=== PATIENT | female | born 1940 | race Caucasian/White ===

== ENCOUNTER 2019-01-04 18:31 | Inpatient (IN) | payer MEDICARE, MEDICAID, SELFPAY ==
[2019-01-04 18:32] VITALS: BP 122/84; PULSE 88; RESP 20; TEMP 37.7; O2SAT 100; BMI 27.3
[2019-01-04 18:47] VITALS: BP 122/84; PULSE 87; RESP 24; O2SAT 96
--- NOTE | 2019-01-04 18:49 | CT_ITS ---
STUDY: CT BRAIN WITHOUT CONTRAST REASON FOR EXAM: Female, 78 years old. Fall. Mental status change. RADIATION DOSAGE (If Supplied By Facility): CTDIvol = ( 44.99 ) mGy, DLP = ( 1057.92 ) mGycm TECHNIQUE: Transaxial CT imaging of the brain was performed without administration of intravenous contrast material. Individualized dose optimization techniques were used for this CT. COMPARISON: No relevant priors. FINDINGS: Normal soft tissue structures. Normal calvarium. Normal size ventricles and extra-axial spaces for the patient's age. There are areas of decreased attenuation within the white matter tracts of the supratentorial brain, consistent with microvascular disease changes. Normal basal ganglia and thalami. Normal brainstem. Normal cerebellum. There is no intracranial hemorrhage. There are no findings of an acute ischemic infarction. Normal visualized paranasal sinuses. CT/Brain/Head without Contrast IMPRESSION: Chronic involutional changes without evidence of acute intracranial or calvarial abnormality. Electronically Signed: Nikko Valdez DO at 20:16 EDT Tel [phone], Service support ,
--- NOTE | 2019-01-04 18:49 | EKG12_ITS ---
Test Reason : Blood Pressure : / mmHG Vent. Rate : 093 BPM Atrial Rate : 093 BPM P-R Int : 154 ms QRS Dur : 066 ms QT Int : 370 ms P-R-T Axes : 051 000 058 degrees QTc Int : 460 ms Normal sinus rhythm Normal ECG Confirmed by MATT ZAVALA ([id number]), video editor KEATON SOTO ([id number]) on 01/09/2019 12:31:41 PM Referred By: MARLENA Confirmed By:MATT ZAVALA
[2019-01-04 18:56] LABS: Bedside Glucose 144 mg/dL (70-110)
--- NOTE | 2019-01-04 18:56 | ED.DCSUM_ITS ---
- ER Visit Summary Date of Service: 01/04/19 Chief Complaint: Fall with reported mental status change History of Present Illness: The patient is a 78 F history of dementia. Currently there is no family with the patient she was brought in by squad. She is a very limited informant. Her squad she reportedly fell today at home and has mental status change. Reportedly fell in her right hip. Patient's not able to really give me any accurate history. We will try to contact the family or hopefully they will come into the ER. Physical Examination: Older female no acute distress. Sitting upright in bed. Vital signs are stable and afebrile. HEENT exam atraumatic. Pupils round re active light. No signs of trauma to her face or scalp. No lacerations or blood. C-spine nontender. Trachea midline. Lungs clear to auscultation bilaterally. Heart regular rate and rhythm no murmur. Chest nontender. Abdomen soft nontender. Extremities moves all 4. She has mild tenderness to her right hip and with range of motion but there is no deformity. There is no shortening or rotation. Left lower extremity both of her shoulders are unremarkable. Neurologically her eyes are open she is awake. She really does not answer a lot of questions. She does follow some limited commands. Test Results: Labs and imaging are not significantly remarkable. Chest x-ray portable one view shows chronic changes no acute process. Read both by myself and radiologist. Pelvis left hip x-ray shows no acute fracture. 3 views read again both by myself and radiologist. CT of the brain shows chronic changes but no acute process. Read by the radiologist and reviewed by me. EKG sinus rhythm rate of 93 with no acute abnormality. No ischemia. CBC White count of 9. Hemoglobin 13. Chemistries normal glucose 138. BUN 25 creatinine 1.1. UA normal. No signs of infection troponin normal. Emergency Department Course and Treatment: Older female reported fall with reported mental status change. Labs and imaging will be obtained. Repeat exam at 8:39 PM patient doing well. Her brother and [id number] are at bedside. She lives with them. She used to live out of the state in the last year she is moved in with them. They are having difficulty caring for her due to her dementia and her amqfjl-jl-[id number] had a stroke so it makes it harder for her to care for the patient. They are requesting admission for retirement placement. I went over all test results with him. Treatment Plan: Hospitalist on page for admission for failure to thrive and retirement placement Disposition: Admission for placement. Impression: Acute fall Reported mental status change with a history of dementia Right hip contusion Failure to thrive family requesting retirement placement History of dementia This note was generated with Microstim dictation software. It may contain incorrect words, spelling, and punctuation that were not noted in review of the chart prior to signing
[2019-01-04 19:02] LABS: Absolute Neutrophil Count 8.2 X10^3/uL (2.0-7.7); Basophil# 0.05 X10^3/uL; Basophil% 0.5 % (0-1); Eosinophil# 0.07 X10^3/uL; Eosinophils% 0.7 % (0-5); Hematocrit 40.4 % (37-47); Hemoglobin 13.2 g/dL (12.0-15.0); Lymphocyte % 7.2 % (19-41); Mean Corp Hgb Conc 32.7 g/dL (32-36); Mean Corpuscular Hgb 29.5 pg (27.0-32.0); Mean Corpuscular Volume 90.2 fL (81-99); Mean Platelet Vol. 10.2 fl (6.2-12.0); Monocyte# 0.75 X10^3/uL; Monocyte% 7.7 % (0-10); NRBC Flagged by Analyzer 0 % (0-5); Neutrophil # 8.16 X10^3/uL (2.7-7.7); Neutrophil % 83.6 % (47-70); Platelet Count 193 K/mm3 (150-450); RBC Distribution Width CV 13.7 % (11.6-14.6); RBC Distribution Width SD 43.9 fl (35.1-43.9); Red Blood Count 4.48 M/mm3 (4.2-5.4); White Blood Count 9.8 K/mm3 (4.4-11.0)
[2019-01-04 19:23] LABS: Anion Gap 3 (5-15); BUN 25 mg/dL (7-18); BUN/Creat Ratio 21.2 RATIO (10-20); Calcium,Total 9.3 mg/dL (8.5-10.1); Chloride 105 mmol/L (98-107); Creatinine, Serum 1.18 mg/dL (0.55-1.02); EST Glomerular Filtration Rate 47 mL/min (>60); Est Glom Filt Rate - Afr Amer 57 mL/min (>60); Estimated Creatinine Clearance 37.41 ml/min; Glucose 138 mg/dL (74-106); Sodium Level 138 mmol/L (136-145)
[2019-01-04 19:55] LABS: Bacteria 0 SEEN /hpf (None Seen); Mucous, Urine 0 SEEN /hpf (<or=2+)
[2019-01-04 20:03] LABS: Color, Urine Straw (Yellow); Glucose, Dipstick Normal (Normal); Ketone-Dipstick Negative (Negative); Leukocyte Esterase-Dipstick Negative /ul (Negative); Nitrite-Dipstick Negative (Negative); Occult Blood-Urine 25 /ul (Negative); Protein-Dipstick Negative (Negative); Urine Bilirubin Dipstick Negative (Negative); Urine Clarity Clear (Clear); Urine Urobilinogen Normal (Normal); Urine pH 6.5 (5.0 - 8.0)
--- NOTE | 2019-01-04 20:05 | RAD_ITS ---
STUDY: X-RAY - PELVIS AND RIGHT HIP REASON FOR EXAM: Female, 78 years old. Fall. Right hip pain. TECHNIQUE: 3 views of the pelvis and hip. COMPARISON: None. FINDINGS: There is a non-specific bowel gas pattern. Normal visualized soft tissue structures. There is posterior fusion on the thoracolumbar spine. There is narrowing with cortical sclerosis and osteophyte formation of the sacroiliac joint consistent with degenerative osteoarthritic changes. Normal iliac wings and visualized sacrum. Normal bilateral superior and inferior pubic rami. There is narrowing with sclerosis of the pubic symphysis. Normal bilateral ischial tuberosities. Normal visualized femoral head. Normal acetabulum. Normal hip joint. RAD/HIP, UNI W/ Pelvis 2-3 Views IMPRESSION: No acute fracture or dislocation. Electronically Signed: Nikko Valdez DO at 20:18 EDT Tel [phone], Service support ,
--- NOTE | 2019-01-04 20:06 | RAD_ITS ---
STUDY: X-RAY CHEST REASON FOR EXAM: Female, 78 years old. Fall. Pain. TECHNIQUE: Single AP portable view of the chest. COMPARISON: None. FINDINGS: Lungs are mildly hypoexpanded with no acute infiltrate or mass. The lungs are clear and expanded. There is no demonstrated pleural abnormality. Normal size heart. Normal mediastinum and holly. Normal visualized pulmonary arteries. Normal visualized aortic arch and descending thoracic aorta. The thoracic spine is obscured by the mediastinum. 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 There is no demonstrated abnormality of the visualized soft tissue structures of the upper abdomen. RAD/Chest 1 View (Portable) IMPRESSION: Degenerative changes, as described above. No demonstrated acute cardiopulmonary process. Electronically Signed: Nikko Valdez DO at 20:17 EDT Tel [phone], Service support ,
[2019-01-04 20:14] LABS: Squamous Epithelial Cells - UA 0-5 SEEN /hpf (5-10)
[2019-01-04 20:15] LABS: Red Blood Cells-Urine 0-5 SEEN /hpf (0-5); White Blood Cells 0-5 SEEN /hpf (0-5)
[2019-01-04 20:16] LABS: Transitional Epithelial - Ur 0-5 SEEN /hpf (0-5)
--- NOTE | 2019-01-04 20:51 | PCM.HP.STD ---
Problem List (1) Adult failure to thrive Status: Acute (2) Acute bronchitis Status: Acute (3) SIRS (systemic inflammatory response syndrome) Status: Acute (4) Dementia Status: Chronic History of Present Illness Date of Admission: 01/04/19 Chief Complaint: fall The patient is a 78 year old F with a significant history of dementia who was brought to the emergency department because of a fall. Patient used to live at [place] and she moved to the [facility] about a year ago to live with her brother and [id number]-[id number]. Patient is unable to take care of herself. Her rdfdrv-kv-sao also has stroke so it is difficult for patient to be catered for. Patient's brother thinks that patient will need placement in a intermediate. History was taken from emergency department doctor because patient has dementia and unable to provide history. Emergency department doctor obtained information from the squad and from patient's brother. At the time of evaluation patient's brother was not available and he was unreachable by phone. Patient was noted to have a congested cough during physical examination. Past Medical History Past Medical History (Chronic Problems): Chronic Problems (Last Reviewed 01/05/19 @ 05:09 by Robert De Guzman MD) Dementia (Chronic) Medical History: Medical History (Last Reviewed 01/05/19 @ 05:09 by Robert De Guzman MD) Dementia F03.90 Home Medications: Ambulatory Orders Medication Instructions Recorded Acetaminophen [Tylenol Extra 1,000 mg PO DAILY PRN PRN 01/04/19 Strength] Alendronate Sodium 35 mg PO FR 01/04/19 Atorvastatin Calcium [Lipitor] 40 mg PO DAILY 01/04/19 Levothyroxine [Synthroid] 88 mcg PO DAILY 01/04/19 Metoprolol Tartrate 25 mg PO BID 01/04/19 Surgical History: - - Unable to obtain history from patient because of dementia. Her family is unreachable by phone. Lives: With Family Tobacco Use: - - Unable to obtain history from patient because of dementia. Her family is unreachable by phone. - *Family History Maternal History Items: - - Unable to obtain history from patient because of dementia. Her family is unreachable by phone. Paternal History Items: - - Unable to obtain history from patient because of dementia. Her family is unreachable by phone. Review of Systems Unable to obtain accurate/complete ROS d/t: Dementia. Her family is unreachable by phone. VTE Information - Inpt Only VTE Present on Admission: No VTE Mechan Device Prophylaxis: None VTE Pharm Prophylaxis ordered?: Yes Patient Problems: Active and Suspected Problems (Last Reviewed 01/05/19 @ 05:09 by Robert De Guzman MD) Adult failure to thrive (Acute) Acute bronchitis (Acute) SIRS (systemic inflammatory response syndrome) (Acute) - Physical Exam General: Alert, Confused HEENT: Atraumatic, EOMI, Normocephalic Neck: Supple, No JVD, No Nuchal Rigidity, Trachea Midline Lungs: Tachypneic, Wheezes, - - Noted to have a congested cough Cardiovascular: Regular Rhythm, No murmurs, Tachycardic Abdomen: Bowel Sounds Present, Soft, Non Tender Extremities: No edema, Capillary Refill Less than 3 Seconds Skin: No rashes, - - Bruise on posterior left shoulder Musculoskeletal: No Tenderness to Palpation of Joints or Extremities Neurological: Cranial nerves II-XII grossly intact Psych/Mental Status: Normal Affect, Appropriate Vital Signs Temp Pulse Resp BP Pulse Ox 99.8 F H 87 24 H 122/84 H 96 01/04/19 18:32 01/04/19 18:47 01/04/19 18:47 01/04/19 18:47 01/04/19 18:47 Oxygen Flow Rate (L/min) 2 Oxygen Delivery Method Nasal Cannula Weight: 61.3 kg Body Mass Index (BMI) 27.3 Finger Stick Blood Glucose 144 Laboratory Tests Past 24 Hrs 01/04/19 01/04/19 01/04/19 18:50 18:50 19:50 WBC 9.8 RBC 4.48 Hgb 13.2 Hct 40.4 MCV 90.2 MCH 29.5 MCHC 32.7 RDW Std Deviation 43.9 RDW Coeff of Rita 13.7 Plt Count 193 MPV 10.2 Immature Gran % (Auto) 0.300 Neut % (Auto) 83.6 H Lymph % (Auto) 7.2 L [place] % (Auto) 7.7 Eos % (Auto) 0.7 Baso % (Auto) 0.5 Absolute Neuts (auto) 8.2 H Absolute Lymphs (auto) 0.70 L Nucleated RBC % 0 Sodium 138 Potassium 4.0 Chloride 105 Carbon Dioxide 30.0 Anion Gap 3 L BUN 25 H Creatinine 1.18 H Estim Creat Clear Calc 37.41 Est GFR (MDRD) Af Amer 57 L Est GFR (MDRD) Non-Af 47 L BUN/Creatinine Ratio 21.2 H Glucose 138 H Calcium 9.3 Troponin I < 0.015 Urine Color Straw Urine Clarity Clear Urine pH 6.5 Ur Specific [place] 1.010 Urine Protein Negative Urine Glucose (UA) Normal Urine Ketones Negative Urine Occult Blood 25 H Urine Nitrite Negative Urine Bilirubin Negative Urine Urobilinogen Normal Ur Leukocyte Esterase Negative Urine RBC 0-5 SEEN Urine WBC 0-5 SEEN Ur Squamous Epith Cells 0-5 SEEN Ur Transition Epith Cell 0-5 SEEN Urine Bacteria 0 SEEN Urine Mucus 0 SEEN POC Glucose 01/04/19 18:36 POC Glucose 144 H Assessment/Plan All Active Problems (Last Reviewed 01/05/19 @ 05:09 by Robert De Guzman MD) Adult failure to thrive (Acute) Acute bronchitis (Acute) SIRS (systemic inflammatory response syndrome) (Acute) The patient is a 78 year old F with a significant history of dementia who was brought to the emergency department because of a fall; unable to take care of herself and with limited assistance at home consistent with adult failure to thrive Adult failure to thrive Likely secondary to severe dementia PT and OT to work patient and make recommendation. Likely patient will need placement to intermediate. Fall Likely secondary to dementia. PT to work with patient for strengthening and balance training. Possibly intermediate placement as above. PRN Tylenol for pain Case management consult Bronchitis Unable to differentiate whether acute or chronic Scheduled DuoNeb. SIRS Patient noted to have a fever of 100.3; tachycardia and tachypnea No obvious source of infection as urinalysis and checks x-ray are unremarkable. If fever persist consider repeating chest x-ray. Dysphagia Noted to failed Nursing bedside swallow eval Speech therapy consult N.p.o. DVT Lovenox subcutaneous. Code Visit OBSV E&M: 73636 Initial observation care L3
[2019-01-04 21:13] VITALS: BP 116/53; PULSE 93; RESP 26; O2SAT 98
[2019-01-04 22:06] VITALS: BMI 27.1
[2019-01-04 22:15] VITALS: BP 132/89; PULSE 106; RESP 24; TEMP 37.9; O2SAT 97; BMI 27.0
--- NOTE | 2019-01-04 22:33 | NURSING ---
Attempted to call Lenard Garza who is listed as next of kin and left a message for him to call [phone] so we could get some information on this pt. No family accompanied the pt and she is unable to give us information.
[2019-01-05] VITALS (15 sets, daily range): BP systolic 88–129; BP diastolic 43–84; PULSE 77–103; RESP 18–26; TEMP 36.8–37.6; O2SAT 2–97
[2019-01-05] MEDS: Ipratropium/Albuterol Sulfate 3 ML AMPUL.NEB INHALATION ×3 (06:54→18:55)
--- NOTE | 2019-01-05 07:17 | PCM.PN.HOSP ---
Patient Problems: Active and Suspected Problems (Last Reviewed 01/05/19 @ 05:09 by Robert De Guzman MD) Adult failure to thrive (Acute) Acute bronchitis (Acute) SIRS (systemic inflammatory response syndrome) (Acute) Subjective: Patient was seen and examined. Admitted last night after a fall and with mental status change. No acute events overnight. She denied any new complaints. She appears more alert this morning; still confused. Attempted calling her next of kin, brother, no answer, left message. Started on pureed diet by speech therapy. Vitals/I&O's: Vital Signs Temp Pulse Resp BP Pulse Ox 98.8 F 100 24 H 106/65 95 01/05/19 06:59 01/05/19 06:59 01/05/19 06:59 01/05/19 06:59 01/05/19 06:59 Oxygen Flow Rate (L/min) 2.5 Oxygen Delivery Method Nasal Cannula Weight: 59 kg Body Mass Index (BMI) 27.1 Finger Stick Blood Glucose 144 Intake and Output for Last 24 Hours 01/03/19 01/04/19 01/05/19 23:59 23:59 23:59 Intake Total 500 / 500 0 / 0 Balance 500 / 500 0 / 0 General: Alert, Cooperative, No apparent distress, Confused HEENT: Atraumatic, PERRLA, EOMI, Normocephalic Oral: Moist Mucosa Neck: Supple Lungs: Clear to auscultation, Normal air movement Cardiovascular: Regular rate, Regular Rhythm, Normal S1, Normal S2, No murmurs Abdomen: Bowel Sounds Present, Soft, Non Tender, Non-Distended, No Hepato-splenomegaly Extremities: No edema Skin: No rashes, No breakdown Musculoskeletal: No Tenderness to Palpation of Joints or Extremities Lymphatic: No Cervical, Supraclavicular, or Inguinal Adenopathy Neurological: Cranial nerves II-XII grossly intact, Neuro grossly intact Psych/Mental Status: Normal Affect, Appropriate Laboratory Results 01/04/19 18:36: POC Glucose 144 H 01/04/19 18:50: WBC 9.8, RBC 4.48, Hgb 13.2, Hct 40.4, MCV 90.2, MCH 29.5, MCHC 32.7, RDW Std Deviation 43.9, RDW Coeff of Rita 13.7, Plt Count 193, MPV 10.2, Immature Gran % (Auto) 0.300, Neut % (Auto) 83.6 H, Lymph % (Auto) 7.2 L, [place] % (Auto) 7.7, Eos % (Auto) 0.7, Baso % (Auto) 0.5, Absolute Neuts (auto) 8.2 H, Absolute Lymphs (auto) 0.70 L, Nucleated RBC % 0 01/04/19 18:50: Sodium 138, Potassium 4.0, Chloride 105, Carbon Dioxide 30.0, Anion Gap 3 L, BUN 25 H, Creatinine 1.18 H, Estim Creat Clear Calc 37.41, Est GFR (MDRD) Af Amer 57 L, Est GFR (MDRD) Non-Af 47 L, BUN/Creatinine Ratio 21.2 H, Glucose 138 H, Calcium 9.3, Troponin I < 0.015 01/04/19 19:50: Urine Color Straw, Urine Clarity Clear, Urine pH 6.5, Ur Specific [place] 1.010, Urine Protein Negative, Urine Glucose (UA) Normal, Urine Ketones Negative, Urine Occult Blood 25 H, Urine Nitrite Negative, Urine Bilirubin Negative, Urine Urobilinogen Normal, Ur Leukocyte Esterase Negative, Urine RBC 0-5 SEEN, Urine WBC 0-5 SEEN, Ur Squamous Epith Cells 0-5 SEEN, Ur Transition Epith Cell 0-5 SEEN, Urine Bacteria 0 SEEN, Urine Mucus 0 SEEN Current Medications Acetaminophen (Tylenol) 650 mg PO Q6H PRN PRN PRN Reason: Mild Pain (1-3)/Temp > 100.7 F Albuterol/Ipratropium (Duoneb) 3 ml INHALATION Q6H.RT [facility] Last Admin: 01/05/19 06:54 Dose: 3 ml Documented by: Atorvastatin Calcium (Lipitor) 40 mg PO DAILY@2200 [facility] Dextrose (D50w Syringe) 0 gm IV X1 PRN; Protocol PRN Reason: Hypoglycemia Enoxaparin Sodium (Lovenox) 40 mg SC DAILY@1000 [facility] Glucagon () 1 mg IM .X1 PRN PRN Reason: Hypoglycemia Levothyroxine Sodium (Synthroid) 88 mcg PO DAILY@0600 [facility] Last Admin: 01/05/19 01:33 Dose: Not Given Documented by: Metoprolol Tartrate (Lopressor (Beta Hugh)) 25 mg PO BID [facility] Last Admin: 01/05/19 00:27 Dose: Not Given Documented by: Nystatin (Mycostatin Powder) 1 applic TOPICAL BID MARGARITA; Protocol Senna/Docusate Sodium (Senokot-S, Maria De Jesus-Colace) 2 tablet PO BID PRN PRN PRN Reason: Constipation Sodium Chloride () 5 - 15 ml IV UD PRN PRN Reason: SALINE FLUSH Medical Necessity - Tobacco Use Smoking Status: Former smoker Tobacco Use: - - Unable to obtain history from patient because of dementia. Her family is unreachable by phone. Assessment/Plan All Active Problems (Last Reviewed 01/05/19 @ 05:09 by Robert De Guzman MD) Adult failure to thrive (Acute) Acute bronchitis (Acute) SIRS (systemic inflammatory response syndrome) (Acute) 78-year-old female with past medical history of dementia who comes in after a fall and reportedly said to be confused. Patient lives with his brother and his and they are unable to take care of him and looking for long-term placement. 1. Fall, unclear of circumstances, suspect underlying gait disorder, probably secondary to progressive dementia We will check vitamin D levels PT and OT to evaluate 2. Dehydration, creatinine is 1.18, no previous creatinine to compare with, will continue on IV fluids, repeat blood work in a.m. 3. Dementia, unknown underlying etiology, limited history, patient is dependent for all ADLs 4. Dysphagia, unclear etiology for now, likely progression of patient's underlying dementia, seen by speech therapy, on pur?ed diet 5. Hypothyroidism, on levothyroxine 6. DVT prophylaxis - Lovenox SC Code Visit Inpatient E&M: 89256 Subs Hosp L2
[2019-01-05] MEDS: 0.9% Normal Saline 1,000 ML 100 ML IV ×2 (09:52→20:25)
[2019-01-05 10:40] LABS: Thyroid Stim Hormone (TSH) 0.31 uIU/mL (0.358-3.74)
[2019-01-05] MEDS: Enoxaparin 40 MG/0.4 ML Syringe SC (12:13)
[2019-01-05] MEDS: Metoprolol Tartrate 25 MG Tablet PO ×2 (12:13→23:16)
--- NOTE | 2019-01-05 12:31 | NURSING ---
SN Lauren contacts pharmacy regarding nystatin cream not on unit for administration-pharmacy will look into it
[2019-01-05] MEDS: Nystatin Powder 15gm Bottle 1 APPLIC TOPICAL ×2 (14:02→23:15)
--- NOTE | 2019-01-05 14:10 | CASEMGMT ---
Social Work Note JAVI spoke with physician regarding pt. Pt will need SNF placement. Per H+P, pt has dementia, unable to answers questions. JAVI placed a call to pt's brother Lenard. Lenard confirms that pt will need SNF at discharge. JAVI reviewed list of area SNF with Lenard. Lenard states he has visited [facility] and would like pt to go to [facility] at discharge. JAVI explained Medicare guidelines for Lenard. JAVI asked pt about HCPOA documents. Lenard states he provided S with HCPOA documents as he is trying to get pt on Medicaid and he will go to [facility] and get copy of HCPOA and bring them to [facility]. JAVI placed a call to [facility] and spoke with Tram and provided referral. JAVI received message from Tram stating she is able to accept pt Wednesday. JAVI placed a call to Lenard and updated him that pt is accepted to [facility] Wednesday. Lenard states understanding. Plan: [facility] Wednesday Maureen Caldwell FERMENTATION ENGINEER, TELE RN
--- NOTE | 2019-01-05 14:24 | CHAPLAIN ---
Type of Pastoral Visit _x__ Initial Visit ___ Follow-up Visit ___ On-call Visit ___ General Patient Visit ___ Spiritual Assessment ___ Family Conference ___ Bereavement ___ Rapid Response ___ Code Blue ___ Other (describe below) Pastoral Care Referral From _x__ Patient ___ Family ___ Nurse ___ Physician ___ Acid Dipper ___ Secondary School Teacher Librarian ___ Other (describe below) Sacrament/Intervention _x__ Active listening ___ Anointing ___ Yarsanism ___ Bereavement ___ Communion ___ Luanne exploration ___ ___ Life review _x__ Prayer ___ Reconciliation ___ Sacrament of Sick ___ Supportive presence ___ Wedding ___ Other (describe below) Pastoral Comments patient is slow to respond to questions and did not always finish her answers
[2019-01-05] MEDS: Atorvastatin Calcium 40 MG Tablet PO (23:16)
[2019-01-06] VITALS (14 sets, daily range): BP systolic 104–124; BP diastolic 46–82; PULSE 73–108; RESP 18–28; TEMP 36.8–38; O2SAT 89–97
[2019-01-06] MEDS: Ipratropium/Albuterol Sulfate 3 ML AMPUL.NEB INHALATION ×5 (01:30→23:20)
--- NOTE | 2019-01-06 02:02 | RAD_ITS ---
HISTORY: CRACKLES EXAM: XR Chest 1 View: COMPARISON: January 04, 2019 FINDINGS: # of images incl. paperwork: 1 Right middle lobe and right lower lobe airspace disease is new Mild pulmonary venous congestion bilaterally is new Heart is not enlarged. Thoracic spondylosis persists. Severe bilateral shoulder arthritis persists. Previous left rotator cuff repair. Pseudoarticulation of the humeral heads with the under surfaces of the acromion suggests bilateral chronic full-thickness rotator cuff tears. Resection of the lateral aspect of the left clavicle. Calcific tendinosis within the right supraspinatus is chronic Pulmonary vascularity is slightly indistinct. Probable tiny bilateral pleural effusions. RAD/Chest 1 View (Portable) IMPRESSION: Right middle lobe and right lower lobe airspace disease suggestive of pneumonia in the setting of bilateral pulmonary edema and pulmonary venous congestion. at 0245 Reported and signed by: Bar Vilchis MD Electronically Signed: Bar Vilchis MD at 2:44 EDT Tel , Service support ,
--- NOTE | 2019-01-06 04:44 | PCM.PN.BLA ---
Progress Note Nares and respiratory therapist reports tachypnea and crackles on examination. Stop IV fluids and get a chest x-ray. Chest x-ray showed evidence of pulmonary edema and multiple areas of opacity suggestive of probable pneumonia. Will start patient on ceftriaxone and azithromycin. Will order CBC.
[2019-01-06] MEDS: Ceftriaxone 1 GM/50 ML BAG IV (05:37)
[2019-01-06] MEDS: 0.9% NaCl Peripheral Flush Adult/Peds IV ×3 (05:45→11:51)
[2019-01-06] MEDS: Levothyroxine 88 MCG Tablet PO (05:58)
[2019-01-06 06:39] LABS: Hematocrit 36.1 % (37-47); Hemoglobin 11.9 g/dL (12.0-15.0); Mean Corpuscular Hgb 29.7 pg (27.0-32.0); Mean Platelet Vol. 10.5 fl (6.2-12.0); Platelet Count 147 K/mm3 (150-450); RBC Distribution Width SD 46.6 fl (35.1-43.9); Red Blood Count 4.01 M/mm3 (4.2-5.4); White Blood Count 6.1 K/mm3 (4.4-11.0)
[2019-01-06 06:50] LABS: Anion Gap 8 (5-15); BUN 17 mg/dL (7-18); BUN/Creat Ratio 18.7 RATIO (10-20); Calcium,Total 8.2 mg/dL (8.5-10.1); Chloride 111 mmol/L (98-107); Creatinine, Serum 0.91 mg/dL (0.55-1.02); EST Glomerular Filtration Rate 63 mL/min (>60); Est Glom Filt Rate - Afr Amer 77 mL/min (>60); Estimated Creatinine Clearance 46.69 ml/min; Glucose 125 mg/dL (74-106); Potassium 3.5 mmol/L (3.5-5.1); Sodium Level 144 mmol/L (136-145)
[2019-01-06] MEDS: Furosemide 40 MG/4 ML Vial IV (08:12)
[2019-01-06] MEDS: Metoprolol Tartrate 25 MG Tablet PO ×2 (08:17→20:52)
[2019-01-06] MEDS: Enoxaparin 40 MG/0.4 ML Syringe SC (08:18)
--- NOTE | 2019-01-06 12:36 | CASEMGMT ---
Addendum entered by Maureen Caldwell 01/06/19 15:45: JAVI spoke with Brooke at [facility] confirming [facility] is able to accept pt Wednesday. Original Note: Social Work Note Pt is going to [facility] Wednesday. HENS completed and placed on pt's chart. Green sheet and transportation form on pt's chart. Plan: [facility] Wednesday Maureen Caldwell MINER PICK, DONOR SPECIALIST
[2019-01-06] MEDS: Nystatin Powder 15gm Bottle 1 APPLIC TOPICAL ×2 (12:38→20:53)
--- NOTE | 2019-01-06 14:48 | PN_ITS ---
Patient Problems: Active and Suspected Problems (Last Reviewed 01/05/19 @ 05:09 by Robert De Guzman MD) Adult failure to thrive (Acute) Acute bronchitis (Acute) SIRS (systemic inflammatory response syndrome) (Acute) Subjective: Patient was seen and examined. Overnight, she was found to be more hypoxic. Chest X-ray showed right sided infiltrates, likely aspiration-related. No fevers noted. Objective: Physical exam: General: Alert, Cooperative, No apparent distress, Confused, on 2L nasal canula oxygen HEENT: Atraumatic, PERRLA, EOMI, Normocephalic Oral: Moist Mucosa Neck: Supple Lungs: Decreased AE, rales heard at the lung bases Cardiovascular: Regular rate, Regular Rhythm, Normal S1, Normal S2, No murmurs Abdomen: Bowel Sounds Present, Soft, Non Tender, Non-Distended, No Hepato- splenomegaly Extremities: No edema Skin: No rashes, No breakdown Musculoskeletal: No Tenderness to Palpation of Joints or Extremities Lymphatic: No Cervical, Supraclavicular, or Inguinal Adenopathy Neurological: Cranial nerves II-XII grossly intact, Neuro grossly intact Psych/Mental Status: Normal Affect, Appropriate Vitals/I&O's: Vital Signs Temp Pulse Resp BP Pulse Ox 98.4 F 96 20 H 116/59 L 89 01/06/19 13:36 01/06/19 13:36 01/06/19 13:36 01/06/19 13:36 01/06/19 13:36 Oxygen Flow Rate (L/min) 2 Oxygen Delivery Method Nasal Cannula Weight: 59 kg Body Mass Index (BMI) 27.1 Finger Stick Blood Glucose 144 Intake and Output for Last 24 Hours 01/04/19 01/05/19 01/06/19 23:59 23:59 23:59 Intake Total 500 / 500 1420 / 1420 1529 / 1529 Output Total 800 / 800 Balance 500 / 500 1420 / 1420 729 / 729 Laboratory Results 01/06/19 05:35: Sodium 144, Potassium 3.5, Chloride 111 H, Carbon Dioxide 25.0, Anion Gap 8, BUN 17, Creatinine 0.91, Estim Creat Clear Calc 46.69, Est GFR (MDRD) Af Amer 77, Est GFR (MDRD) Non-Af 63, BUN/Creatinine Ratio 18.7, Glucose 125 H, Calcium 8.2 L 01/06/19 05:35: WBC 6.1, RBC 4.01 L, Hgb 11.9 L, Hct 36.1 L, MCV 90.0, MCH 29.7, MCHC 33.0, RDW Std Deviation 46.6 H, RDW Coeff of Rita 14.0, Plt Count 147 L, MPV 10.5 Current Medications Acetaminophen (Tylenol) 650 mg PO Q6H PRN PRN PRN Reason: Mild Pain (1-3)/Temp > 100.7 F Albuterol/Ipratropium (Duoneb) 3 ml INHALATION Q4H.RT [facility] Last Admin: 01/06/19 13:50 Dose: 3 ml Documented by: Atorvastatin Calcium (Lipitor) 40 mg PO DAILY@2200 [facility] Last Admin: 01/05/19 23:16 Dose: 40 mg Documented by: Dextrose (D50w Syringe) 0 gm IV X1 PRN; Protocol PRN Reason: Hypoglycemia Enoxaparin Sodium (Lovenox) 40 mg SC DAILY@1000 [facility] Last Admin: 01/06/19 08:18 Dose: 40 mg Documented by: Glucagon () 1 mg IM .X1 PRN PRN Reason: Hypoglycemia Ampicillin Sodium/Sulbactam (Sodium 3 gm/ Sodium Chloride) 112 mls @ 150 mls/hr IV Q6 [facility] Last Infusion: 01/06/19 12:35 Dose: Infused Documented by: Sodium Chloride () 250 mls @ 15 mls/hr IV .[id number] PRN PRN Reason: SALINE FLUSH Levothyroxine Sodium (Synthroid) 88 mcg PO DAILY@0600 [facility] Last Admin: 01/06/19 05:58 Dose: 88 mcg Documented by: Metoprolol Tartrate (Lopressor (Beta Hugh)) 25 mg PO BID [facility] Last Admin: 01/06/19 08:17 Dose: 25 mg Documented by: Nutritional Formula (Lactose Free) (Ensure Enlive) 120 ml PO 4X/DAY [facility] Last Admin: 01/06/19 12:35 Dose: Not Given Documented by: Nystatin (Mycostatin Powder) 1 applic TOPICAL BID [facility]; Protocol Last Admin: 01/06/19 12:38 Dose: 1 applicatio Documented by: Senna/Docusate Sodium (Senokot-S, Maria De Jesus-Colace) 2 tablet PO BID PRN PRN PRN Reason: Constipation Sodium Chloride () 5 - 15 ml IV UD PRN PRN Reason: SALINE FLUSH Last Admin: 01/06/19 11:51 Dose: 5 ml Documented by: Medical Necessity - Tobacco Use Smoking Status: Former smoker Tobacco Use: - - Unable to obtain history from patient because of dementia. Her family is unreachable by phone. Assessment/Plan All Active Problems (Last Reviewed 01/05/19 @ 05:09 by Robert De Guzman MD) Adult failure to thrive (Acute) Acute bronchitis (Acute) SIRS (systemic inflammatory response syndrome) (Acute) 78-year-old female with past medical history of dementia who comes in after a fall and reportedly said to be confused. Patient lives with his brother and his and they are unable to take care of him and are looking for long-term placement. 1. Acute hypoxic respiratory insufficiency secondary to aspiration pneumonitis On 2 L oxygen, will continue on scheduled breathing treatments and incentive spirometer 2. Probable Aspiration pneumonitis/aspiration pneumonia, will continue on Unasyn IV Speech therapy consulted 3. Fall, unclear of circumstances, suspect underlying gait disorder, probably secondary to progressive dementia Vitamin D levels are pending, PT/OT consulted. 4. Dehydration, creatinine improved from 1.18 to 0.91 with IVF Off IVF for fluid overload state, CXR points to venous congestion/fluid overload Will check 2d-ECHO, Lasix 40mg IV x 1 Will recheck BMP in am 5. Dementia, unknown underlying etiology, TSH is low, will check FT4, FT3 Will also check Vitamin B12 levels 6. Dysphagia, unclear etiology for now, likely progression of patient's underlying dementia, Will follow-up on speech therapy evaluation Continue on pur?ed diet 7. Hypothyroidism, on levothyroxine 8. DVT prophylaxis - Lovenox SC 9. Disposition: Discharge to [facility] on wednesday Code Visit Inpatient E&M: 17011 Subs Hosp L2
[2019-01-06 16:16] LABS: Free T3 1.4 pg/mL (2.18-3.98); T4 Free Direct 1.06 ng/dL (0.76-1.46)
[2019-01-06] MEDS: Atorvastatin Calcium 40 MG Tablet PO (20:52)
[2019-01-07] VITALS (13 sets, daily range): BP systolic 95–130; BP diastolic 49–76; PULSE 56–99; RESP 16–24; TEMP 36.6–36.9; O2SAT 93–96
[2019-01-07] MEDS: Ipratropium/Albuterol Sulfate 3 ML AMPUL.NEB INHALATION ×5 (03:30→22:27)
[2019-01-07] MEDS: Levothyroxine 88 MCG Tablet PO (05:33)
[2019-01-07 06:44] LABS: Absolute Lymphocyte Count 0.89 X10^3/uL (0.83-4.51); Absolute Neutrophil Count 3.7 X10^3/uL (2.0-7.7); Basophil# 0.03 X10^3/uL; Basophil% 0.5 % (0-1); Eosinophil# 0.25 X10^3/uL; Eosinophils% 4.4 % (0-5); Hematocrit 35.2 % (37-47); Hemoglobin 11.7 g/dL (12.0-15.0); Lymphocyte # 0.89 X10^3/ul (4.0); Lymphocyte % 15.7 % (19-41); Mean Corp Hgb Conc 33.2 g/dL (32-36); Mean Corpuscular Hgb 30.2 pg (27.0-32.0); Mean Corpuscular Volume 90.7 fL (81-99); Mean Platelet Vol. 10.7 fl (6.2-12.0); Monocyte% 14.1 % (0-10); NRBC Flagged by Analyzer 0 % (0-5); Neutrophil # 3.68 X10^3/uL (2.7-7.7); Neutrophil % 65.1 % (47-70); Platelet Count 159 K/mm3 (150-450); RBC Distribution Width CV 14.1 % (11.6-14.6); RBC Distribution Width SD 46.5 fl (35.1-43.9); Red Blood Count 3.88 M/mm3 (4.2-5.4); White Blood Count 5.7 K/mm3 (4.4-11.0)
[2019-01-07 07:09] LABS: Anion Gap 4 (5-15); BUN 20 mg/dL (7-18); BUN/Creat Ratio 20.7 RATIO (10-20); Calcium,Total 8.1 mg/dL (8.5-10.1); Chloride 109 mmol/L (98-107); Creatinine, Serum 0.97 mg/dL (0.55-1.02); EST Glomerular Filtration Rate 59 mL/min (>60); Est Glom Filt Rate - Afr Amer 71 mL/min (>60); Glucose 98 mg/dL (74-106); Potassium 3.1 mmol/L (3.5-5.1); Sodium Level 141 mmol/L (136-145)
--- NOTE | 2019-01-07 07:11 | PCM.PN.HOSP ---
Patient Problems: Active and Suspected Problems (Last Reviewed 01/05/19 @ 05:09 by Robert De Guzman MD) Adult failure to thrive (Acute) Acute bronchitis (Acute) SIRS (systemic inflammatory response syndrome) (Acute) Subjective: Patient seen and examined. No acute events overnight. No worsening SOB or chest pain. Objective: Objective: Physical exam: General: Alert, Cooperative, No apparent distress, Confused, on 2L nasal canula oxygen HEENT: Atraumatic, PERRLA, EOMI, Normocephalic Oral: Moist Mucosa Neck: Supple Lungs: Decreased AE, rales heard at the lung bases Cardiovascular: Regular rate, Regular Rhythm, Normal S1, Normal S2, No murmurs Abdomen: Bowel Sounds Present, Soft, Non Tender, Non-Distended, No Hepato-splenomegaly Extremities: No edema Skin: No rashes, No breakdown Musculoskeletal: No Tenderness to Palpation of Joints or Extremities Lymphatic: No Cervical, Supraclavicular, or Inguinal Adenopathy Neurological: Cranial nerves II-XII grossly intact, Neuro grossly intact Psych/Mental Status: Normal Affect, Appropriate Vitals/I&O's: Vital Signs Temp Pulse Resp BP Pulse Ox 98 F 90 20 H 103/49 L 95 01/07/19 03:14 01/07/19 03:30 01/07/19 03:30 01/07/19 03:14 01/07/19 03:14 Oxygen Flow Rate (L/min) 2 Oxygen Delivery Method Nasal Cannula Weight: 59 kg Body Mass Index (BMI) 27.1 Finger Stick Blood Glucose 144 Intake and Output for Last 24 Hours 01/05/19 01/06/19 01/07/19 23:59 23:59 23:59 Intake Total 1420 / 1420 1640 814 / 814 Output Total 800 / 1000 500 / 500 Balance 1420 / 1420 841 / 991 314 / 314 Laboratory Results 01/06/19 05:35: Free T4 1.06, Free T3 pg/dL 1.4 L 01/07/19 06:12: WBC 5.7, RBC 3.88 L, Hgb 11.7 L, Hct 35.2 L, MCV 90.7, MCH 30.2, MCHC 33.2, RDW Std Deviation 46.5 H, RDW Coeff of Rita 14.1, Plt Count 159, MPV 10.7, Immature Gran % (Auto) 0.200, Neut % (Auto) 65.1, Lymph % (Auto) 15.7 L, [place] % (Auto) 14.1 H, Eos % (Auto) 4.4, Baso % (Auto) 0.5, Absolute Neuts (auto) 3.7, Absolute Lymphs (auto) 0.89, Nucleated RBC % 0 01/07/19 06:12: Sodium 141, Potassium 3.1 L, Chloride 109 H, Carbon Dioxide 28.0, Anion Gap 4 L, BUN 20 H, Creatinine 0.97, Estim Creat Clear Calc 43.80, Est GFR (MDRD) Af Amer 71, Est GFR (MDRD) Non-Af 59 L, BUN/Creatinine Ratio 20.7 H, Glucose 98, Calcium 8.1 L Current Medications Acetaminophen (Tylenol) 650 mg PO Q6H PRN PRN PRN Reason: Mild Pain (1-3)/Temp > 100.7 F Albuterol/Ipratropium (Duoneb) 3 ml INHALATION Q4H.RT [facility] Last Admin: 01/07/19 06:44 Dose: 3 ml Documented by: Atorvastatin Calcium (Lipitor) 40 mg PO DAILY@2200 [facility] Last Admin: 01/06/19 20:52 Dose: 40 mg Documented by: Dextrose (D50w Syringe) 0 gm IV X1 PRN; Protocol PRN Reason: Hypoglycemia Enoxaparin Sodium (Lovenox) 40 mg SC DAILY@1000 [facility] Last Admin: 01/06/19 08:18 Dose: 40 mg Documented by: Glucagon () 1 mg IM .X1 PRN PRN Reason: Hypoglycemia Ampicillin Sodium/Sulbactam (Sodium 3 gm/ Sodium Chloride) 112 mls @ 150 mls/hr IV Q6 [facility] Last Infusion: 01/07/19 06:20 Dose: Infused Documented by: Sodium Chloride () 250 mls @ 15 mls/hr IV .[id number] PRN PRN Reason: SALINE FLUSH Potassium Chloride () 10 meq in 100 mls @ 100 mls/hr IV BOLUS Q1H [facility] Stop: 01/07/19 11:14 Levothyroxine Sodium (Synthroid) 88 mcg PO DAILY@0600 [facility] Last Admin: 01/07/19 05:33 Dose: 88 mcg Documented by: Metoprolol Tartrate (Lopressor (Beta Hugh)) 25 mg PO BID [facility] Last Admin: 01/06/19 20:52 Dose: 25 mg Documented by: Nutritional Formula (Lactose Free) (Ensure Enlive) 120 ml PO 4X/DAY [facility] Last Admin: 01/06/19 22:19 Dose: Not Given Documented by: Nystatin (Mycostatin Powder) 1 applic TOPICAL BID [facility]; Protocol Last Admin: 01/06/19 20:53 Dose: 1 applicatio Documented by: Senna/Docusate Sodium (Senokot-S, Maria De Jesus-Colace) 2 tablet PO BID PRN PRN PRN Reason: Constipation Sodium Chloride () 5 - 15 ml IV UD PRN PRN Reason: SALINE FLUSH Last Admin: 01/06/19 11:51 Dose: 5 ml Documented by: Medical Necessity - Tobacco Use Smoking Status: Former smoker Tobacco Use: - - Unable to obtain history from patient because of dementia. Her family is unreachable by phone. Assessment/Plan All Active Problems (Last Reviewed 01/05/19 @ 05:09 by Robert De Guzman MD) Adult failure to thrive (Acute) Acute bronchitis (Acute) SIRS (systemic inflammatory response syndrome) (Acute) 78-year-old female with past medical history of dementia who comes in after a fall and reportedly said to be confused. Patient lives with his brother and his and they are unable to take care of him and are looking for long-term placement. 1. Acute hypoxic respiratory insufficiency secondary to aspiration pneumonitis On 2 L oxygen, will continue on scheduled breathing treatments and incentive spirometer 2. Probable Aspiration pneumonitis/aspiration pneumonia, will continue on Unasyn IV Speech therapy consulted 3.Hypokalemia, K 3.1, replaced, recheck in am 4. Fall, unclear of circumstances, suspect underlying gait disorder, probably secondary to progressive dementia Vitamin D levels are pending, skilled for discharge in SNF 5. Dehydration, resolving with IVF Off IVF for fluid overload state, CXR points to venous congestion/fluid overload 2d-ECHO is pending, will recheck BMP in am 6. Dementia, unknown underlying etiology, TSH is low, FT4 is normal, free T3 is low, needs to be rechecked again later Vitamin B12 levels are pending 7. Dysphagia, unclear etiology for now, likely progression of patient's underlying dementia, Speech therapy following, continue on pur?ed diet, thin liquids 8. Hypothyroidism, on levothyroxine 9. DVT prophylaxis - Lovenox SC 10. Disposition: Discharge to [facility] on wednesday Code Visit Inpatient E&M: [id number] Subs Hosp L2
[2019-01-07] MEDS: Enoxaparin 40 MG/0.4 ML Syringe SC (07:53)
[2019-01-07] MEDS: Nystatin Powder 15gm Bottle 1 APPLIC TOPICAL ×2 (07:54→22:47)
[2019-01-07] MEDS: Metoprolol Tartrate 25 MG Tablet PO (07:54)
[2019-01-07] MEDS: Potassium Chloride 10mEq/100mL 10 MEQ/100 ML IV.SOLN. 100 MEQ IV BOLUS ×4 (08:00→11:39)
[2019-01-07 08:12] LABS: Magnesium 2.1 mg/dL (1.6-2.6)
[2019-01-07] MEDS: 0.9% NaCl IVPB Med Flush (250 mL) 15 ML IV (14:07)
[2019-01-07] MEDS: 0.9% NaCl Peripheral Flush Adult/Peds IV (18:58)
[2019-01-07] MEDS: Atorvastatin Calcium 40 MG Tablet PO (22:47)
[2019-01-08] VITALS (8 sets, daily range): BP systolic 106–133; BP diastolic 53–67; PULSE 78–105; RESP 16–20; TEMP 36.4–37.1; O2SAT 92–97
[2019-01-08] MEDS: Ipratropium/Albuterol Sulfate 3 ML AMPUL.NEB INHALATION ×3 (03:20→10:57)
[2019-01-08] MEDS: Levothyroxine 88 MCG Tablet PO (05:53)
[2019-01-08] MEDS: 0.9% NaCl Peripheral Flush Adult/Peds IV ×2 (05:58→05:59)
[2019-01-08] MEDS: Enoxaparin 40 MG/0.4 ML Syringe SC (07:57)
[2019-01-08] MEDS: Nystatin Powder 15gm Bottle 1 APPLIC TOPICAL (07:57)
[2019-01-08] MEDS: Metoprolol Tartrate 25 MG Tablet PO (07:58)
--- NOTE | 2019-01-08 08:12 | RAD_ITS ---
STUDY: X-RAY CHEST REASON FOR EXAM: Female, 78 years old. Chest pain TECHNIQUE: Single AP portable view of the chest. COMPARISON: January 06, 2019 chest x-ray FINDINGS: The lungs are underexpanded. Interstitial markings are mildly prominent. There is no demonstrated pleural abnormality. Normal size heart. Normal mediastinum and holly. Normal visualized pulmonary arteries. There is atherosclerotic calcification of the aortic arch with tortuosity. There are diffuse degenerative changes of the visualized thoracic spine. There is a left-sided humerus orthopedic tach. There is cephalad migration of the bilateral humeral heads which is associated with chronic rotator cuff pathology. There is no demonstrated abnormality of the visualized soft tissue structures of the upper abdomen. RAD/Chest 1 View (Portable) IMPRESSION: Improved pulmonary edema. Electronically Signed: Sanjana Ruvalcaba MD at 16:57 EDT Tel , Service support ,
[2019-01-08 08:27] LABS: Anion Gap 12 (5-15); BUN 24 mg/dL (7-18); BUN/Creat Ratio 21.8 RATIO (10-20); Calcium,Total 8.5 mg/dL (8.5-10.1); Chloride 110 mmol/L (98-107); EST Glomerular Filtration Rate 51 mL/min (>60); Est Glom Filt Rate - Afr Amer 62 mL/min (>60); Estimated Creatinine Clearance 38.63 ml/min; Glucose 256 mg/dL (74-106); Sodium Level 145 mmol/L (136-145)
--- NOTE | 2019-01-08 08:32 | TREXTCAR_ITS ---
- Diet 01/05/19 09:00 Diet: Regular Diet Food consistency:: Puree Liquid Consistency:: [place] Thick Diet Comments: Supervision; seated in chair at 90 degrees - Routine Orders/Code Status O2 Liters per Minute: 2 O2 Frequency: Continuous Keep PO Greater than or Equal to (%): 94 - Encourage use of incentive spirometer Routine Lab Work: CBC - within 3 days, BMP - within 3 days Code Status: DNRCC-A - Therapies Weight Bearing: Weight bearing as tolerated Physical Therapy: Eval and Treat Occupational Therapy: Eval and Treat - Allergies/Procedures Done in Hospital Allergies/Adverse Reactions: Allergies No Known Allergies Allergy (Verified 01/05/19 09:55) Procedures: None - Type of Care/Length of Stay Estimated LOS: Convalescent Care Less Than 30 days Type of Care Needed: Skilled Rehab Potential: Fair Prognosis: Fair - Additional Orders/Day of Discharge Day of Discharge: 01/08/19 - Dietary and Speech Recommendations Dietitian Recommendations/Changes: Continue regular diet- consistency per [employer]. Will provide ONS w/ meals for additional calories/protein if consumed. - Follow Up Care Primary Care Physician: Jose Manuel Luz DO [Primary Care Provider] -
--- NOTE | 2019-01-08 08:34 | DS.PCM_ITS ---
Discharge Date and Diagnosis - Problem List Patient Problems: Active and Suspected Problems (Last Reviewed 01/05/19 @ 05:09 by Robert De Guzman MD) Adult failure to thrive (Acute) Acute bronchitis (Acute) SIRS (systemic inflammatory response syndrome) (Acute) Date of Admission: 01/04/19 Date of Discharge: 01/08/19 - Primary Discharge Diagnosis Active and Suspected Problems (Last Reviewed 01/05/19 @ 05:09 by Robert De Guzman MD) Adult failure to thrive (Acute) Acute hypoxic respiratory insufficiency Aspiration pneumonitis/pneumonia Fall Hypokalemia Dysphagia - Secondary Discharge Diagnosis Chronic Problems (Last Reviewed 01/05/19 @ 05:09 by Robert De Guzman MD) Dementia (Chronic) Hypothyroidism Hospital Course and Treatment Imaging Results: 01/08/19 08:12 Chest 1 View (Portable) [RAD] Urgent Clinical Impression(s) from Imaging Studies Brain CT 01/04/19 18:49 IMPRESSION: Chronic involutional changes without evidence of acute intracranial or calvarial abnormality. Electronically Signed: Nikko Valdez DO at 20:16 EDT Tel [phone], Service support , Hip/Pelvis X-Ray 01/04/19 20:05 IMPRESSION: No acute fracture or dislocation. Electronically Signed: Nikko Valdez DO at 20:18 EDT Tel [phone], Service support , Chest X-Ray 01/04/19 20:06 IMPRESSION: Degenerative changes, as described above. No demonstrated acute cardiopulmonary process. Electronically Signed: Nikko Valdez DO at 20:17 EDT Tel [phone], Service support , Chest X-Ray 01/06/19 02:02 IMPRESSION: Right middle lobe and right lower lobe airspace disease suggestive of pneumonia in the setting of bilateral pulmonary edema and pulmonary venous congestion. at 0245 Reported and signed by: Bar Vilchis MD Electronically Signed: Bar Vilchis MD at 2:44 EDT Tel , Service support , None Operations: None Procedures: None Summary of Care Provided: 78-year-old female with past medical history of dementia who comes in after a fall and reportedly said to be confused. Patient lives with his brother and his and they are unable to take care of him and are looking for long-term [place]. Patient was admitted to the regular nursing floor. She was found to be hypoxic the next day, requiring use of oxygen. Chest X-ray was suggestive of aspiration pneumonia/pneumonitis. She was started on IV antibiotics, breathing treatments. She was seen by speech therapy and initially started on pureed diet with thin liquids and later transitioned to nectar-thick liquids. She continued to improve. She had hypokalemia that was replaced. She was skilled and discharge to subacute care. Vitamin D levels and vitamin B12 levels were pending at the time of discharge. Patient was fluid overloaded in the hospital, IVF stopped. Her respiratory dose as well as her general clinical condition did not change much with 1 dose of IV Lasix. There are no signs of fluid overload state in this patient to suggest CHF exacerbation. Patient had a low TSH but normal free T4 and low free T3. This is suggestive of sick euthyroid state. Would have to monitor this conservatively and needs to be repeated in the outpatient. Patient Problems: Active and Suspected Problems (Last Reviewed 01/05/19 @ 05:09 by Robert De Guzman MD) Adult failure to thrive (Acute) Acute bronchitis (Acute) SIRS (systemic inflammatory response syndrome) (Acute) Subjective: On the day of discharge, patient was seen and examined. She is confused, oriented to self only. No acute events overnight. Objective: Objective: Physical exam: General: Alert, Cooperative, No apparent distress, Confused, on 2L nasal canula oxygen HEENT: Atraumatic, PERRLA, EOMI, Normocephalic Oral: Moist Mucosa Neck: Supple Lungs: Decreased AE, rales heard at the lung bases Cardiovascular: Regular rate, Regular Rhythm, Normal S1, Normal S2, No murmurs Abdomen: Bowel Sounds Present, Soft, Non Tender, Non-Distended, No Hepato- splenomegaly Extremities: No edema Skin: No rashes, No breakdown Musculoskeletal: No Tenderness to Palpation of Joints or Extremities Lymphatic: No Cervical, Supraclavicular, or Inguinal Adenopathy Neurological: Cranial nerves II-XII grossly intact, Neuro grossly intact Psych/Mental Status: Normal Affect, Appropriate - Physical Exam Vital Signs Temp Pulse Resp BP Pulse Ox 98.0 F 105 H 20 H 117/53 L 92 01/08/19 07:53 01/08/19 07:58 01/08/19 07:53 01/08/19 07:53 01/08/19 07:53 Oxygen Flow Rate (L/min) 2 Oxygen Delivery Method Nasal Cannula Weight: 59 kg Body Mass Index (BMI) 27.1 Finger Stick Blood Glucose 144 Intake and Output for Last 24 Hours 01/06/19 01/07/19 01/08/19 23:59 23:59 23:59 Intake Total 1640 / 1990 2112.75 / 2112.75 480.75 / 480.75 Output Total 800 / 1000 1250 / 1250 350 / 350 Balance 841 / 991 862.75 / 862.75 130.75 / 130.75 Laboratory Tests Past 24 Hrs 01/07/19 01/08/19 01/08/19 06:12 07:41 07:41 WBC Pending RBC Pending Hgb Pending Hct Pending MCV Pending MCH Pending MCHC Pending RDW Std Deviation Pending RDW Coeff of Rita Pending Plt Count Pending Neut % (Auto) Pending Absolute Neuts (auto) Pending Sodium 145 Potassium 3.0 L Chloride 110 H Carbon Dioxide 23.0 Anion Gap 12 BUN 24 H Creatinine 1.10 H Estim Creat Clear Calc 38.63 Est GFR (MDRD) Af Amer 62 Est GFR (MDRD) Non-Af 51 L BUN/Creatinine Ratio 21.8 H Glucose 256 H Calcium 8.5 Vitamin B12 Pending Discharge Diet: - - pureed diet, nectar thin liquids Discharge Activity: Return to Normal Activity Weight Bearing Status: Weight bearing as tolerated Home Medications: Medications to take at Discharge Alendronate Sodium 35 mg PO FR 01/04/19 Atorvastatin Calcium [Lipitor] 40 mg PO DAILY 01/04/19 Levothyroxine [Synthroid] 88 mcg PO DAILY 01/04/19 Metoprolol Tartrate 25 mg PO BID 01/04/19 Acetaminophen [Tylenol Tablet] 650 mg PO Q6H PRN PRN tab 01/08/19 Amoxicillin/Potassium Clav [Augmentin 875-125 Tablet] 1 ea PO BID 7 Days #14 tab 01/08/19 Ensure Enlive 120 ml PO 4X/DAY liquid 01/08/19 Ipratropium/Albuterol Sulfate [Duoneb] 3 ml INHALATION Q4H.RT PRN ampul.neb 01/08/19 Nystatin Powder [Mycostatin Powder] 1 applic TOPICAL BID bottle 01/08/19 Prednisone 40 mg PO DAILY #5 tab 01/08/19 Following Prescrptions Were Given to Patient: Amoxicillin/Potassium Clav [Augmentin 875-125 Tablet] 1 ea PO BID 7 Days #14 tab Prednisone 40 mg PO DAILY #5 tab Primary Care Physician: Jose Manuel Luz DO [Primary Care Provider] - Please follow up with your Primary Care Physician in: within 1-2 weeks Disposition: [facility] facility Minutes spent on discharge:: 40 Patient Condition:: Stable Medical Necessity - Tobacco Use Smoking Status: Former smoker Tobacco Use: Non-smoker, - - Unable to obtain history from patient because of dementia. Her family is unreachable by phone. Meaningful Use Info Meaningful Use Diagnoses (Choose all that apply): None applicable Code Visit Inpatient E&M: 07582 Disch Hosp
[2019-01-08 08:35] LABS: Differential Indicated SCAN CRITERIA MET; Hematocrit 35.2 % (37-47); Hemoglobin 11.6 g/dL (12.0-15.0); Mean Corpuscular Hgb 29.3 pg (27.0-32.0); Mean Corpuscular Volume 88.9 fL (81-99); Mean Platelet Vol. 10.5 fl (6.2-12.0); Platelet Count 171 K/mm3 (150-450); RBC Distribution Width CV 14.1 % (11.6-14.6); RBC Distribution Width SD 45.4 fl (35.1-43.9); Red Blood Count 3.96 M/mm3 (4.2-5.4); White Blood Count 8.5 K/mm3 (4.4-11.0)
[2019-01-08 08:36] LABS: Absolute Lymphocyte Count 0.38 X10^3/uL (0.83-4.51); Absolute Neutrophil Count 7.3 X10^3/uL (2.0-7.7); Basophil# 0.01 X10^3/uL; Basophil% 0.1 % (0-1); Differential Comment SCANNED; Eosinophil# 0.15 X10^3/uL; Eosinophils% 1.8 % (0-5); Lymphocyte # 0.38 X10^3/ul (4.0); Lymphocyte % 4.5 % (19-41); Monocyte# 0.64 X10^3/uL; Monocyte% 7.5 % (0-10); Neutrophil # 7.28 X10^3/uL (2.7-7.7); Neutrophil % 85.7 % (47-70); Platelet Estimate ADEQUATE (ADEQ)
[2019-01-08 08:44] LABS: NRBC Flagged by Analyzer 0 % (0-5)
[2019-01-08] MEDS: Potassium Chloride 10mEq/100mL 10 MEQ/100 ML IV.SOLN. 100 MEQ IV BOLUS ×4 (10:08→14:08)
[2019-01-08] MEDS: 0.9% NaCl IVPB Med Flush (250 mL) 15 ML IV (10:12)
--- NOTE | 2019-01-08 15:07 | NURSING ---
Called report to [facility] at this time. notified that transportation is here now to pick her up.
[2019-01-09 09:11] LABS: Vitamin B12 424 pg/mL (211-911)
[2019-01-10 14:33] LABS: Vitamin D 1,25-Dihydroxy 27.6 pg/mL (19.9-79.3)
== END 2019-01-08 15:07 | disposition skilled nursing facility (03) | DRG 640 ==
LOC: ED 19:26 → MS3 21:13
PROVIDERS: Admitting Provider Hospitalist; Emergency Provider Emergency Medicine; Family Provider Family Medicine; PCP Family Medicine; Visit Provider Internal Medicine
DX: R62.7 Adult failure to thrive (principal); J69.0 Pneumonitis due to inhalation of food and vomit; E87.6 Hypokalemia; E03.9 Hypothyroidism, unspecified; F03.90 Unspecified dementia, unspecified severity, without behavioral disturbance, psychotic disturbance, mood disturbance, and anxiety; Z87.891 Personal history of nicotine dependence; S70.01XA Contusion of right hip, initial encounter; W19.XXXA Unspecified fall, initial encounter; Y93.9 Activity, unspecified; R13.10 Dysphagia, unspecified; Z66 Do not resuscitate; Y92.000 Kitchen of unspecified non-institutional (private) residence as the place of occurrence of the external cause; R09.02 Hypoxemia; R06.89 Other abnormalities of breathing; E86.0 Dehydration
CPT/HCPCS: 36415; 70450; 71045; 73502; 80048; 81001; 82607; 82652; 82962; 83735; 84439; 84443; 84481; 84484; 85025; 85027; 92526; 92610; 93005; 94640; 97110; 97162; 97166; 97530; 97535; 99285; J7030; J7040; J7050; P9612; A4216; J0295; J1940

== ENCOUNTER 2019-03-05 16:31 | Emergency (ER) | payer MEDICARE, MEDICAID, SELFPAY ==
[2019-03-05 16:33] VITALS: BP 159/69; PULSE 74; RESP 16; TEMP 36.9; O2SAT 98; BMI 27.9
[2019-03-05 16:42] VITALS: RESP 16
--- NOTE | 2019-03-05 16:51 | RAD_ITS ---
STUDY: X-RAY - PELVIS REASON FOR EXAM: Female, 78 years old. Fall and pain TECHNIQUE: One view of the pelvis was obtained. COMPARISON: January 04, 2019 FINDINGS: There is a non-specific bowel gas pattern. Normal visualized soft tissue structures. Lumbosacral fusions. Normal bilateral iliac wings, sacroiliac joints and visualized sacrum. Normal visualized bilateral superior and inferior pubic rami. Normal pubic symphysis. Normal ischial tuberosities. Normal visualized right femoral head. Normal right acetabulum. Normal right hip joint. Normal visualized left femoral head. Normal left acetabulum. Normal left hip joint. RAD/Pelvis 1 or 2 Views IMPRESSION: No acute osseous injury is evident. Electronically Signed: Hossein White MD at 17:34 EST Tel , Service support ,
--- NOTE | 2019-03-05 16:51 | CT_ITS ---
STUDY: CT BRAIN WITHOUT CONTRAST REASON FOR EXAM: Female, 78 years old. Fall and pain RADIATION DOSAGE (If Supplied By Facility): CTDIvol = ( 44.99 ) mGy, DLP = ( 782.05 ) mGycm TECHNIQUE: Transaxial CT imaging of the brain was performed without administration of intravenous contrast material. Individualized dose optimization techniques were used for this CT. COMPARISON: January 04, 2019 FINDINGS: Normal soft tissue structures. Normal calvarium. Remote fracture of the right mandibular condyle. Bilateral lens replacements. Normal size ventricles and extra-axial spaces for the patient's age. There are areas of decreased attenuation within the white matter tracts of the supratentorial brain, consistent with microvascular disease changes. Age-related changes of the basal ganglia. Normal brainstem. Normal cerebellum. There is no intracranial hemorrhage. There are no findings of an acute ischemic infarction. Right sphenoid sinus disease. CT/Brain/Head without Contrast IMPRESSION: No acute fracture or intracranial hemorrhage. Electronically Signed: Hossein White MD at 17:36 EST Tel , Service support ,
--- NOTE | 2019-03-05 16:51 | CT_ITS ---
STUDY: CT CERVICAL SPINE WITHOUT CONTRAST REASON FOR EXAM: Female, 78 years old. Fall and pain RADIATION DOSAGE (If Supplied By Facility): CTDIvol = ( 23.77 ) mGy, DLP = ( 402.04 ) mGycm TECHNIQUE: High resolution transaxial imaging was performed without contrast material. Sagittal and coronal images were reconstructed. Individualized dose optimization techniques were used for this CT. COMPARISON: None FINDINGS: Craniocervical junction is intact. Degenerative changes are present involving the atlantodental articulation. Normal odontoid process. Alignment is within normal limits. Multilevel degenerative disease is present. No acute fractures or dislocations are seen. Carotid calcifications. CT/Spine Cervical without Contras IMPRESSION: No acute osseous injury is evident. Comment: MRI is more sensitive than CT in detecting cord injury, ligament injury, and epidural hematoma. If there is continued clinical concern for any of these entities, MRI correlation should be considered if possible. Electronically Signed: Hossein White MD at 17:40 EST Tel , Service support ,
--- NOTE | 2019-03-05 17:55 | ED.DCSUM_ITS ---
- ER Visit Summary Date of Service: 03/05/19 Chief Complaint: Reported unwitnessed fall at the [facility] History of Present Illness: The patient is a 78 F history of dementia, hypothyroidism and DNR Comfort Care arrest status. Reportedly patient had an unwitnessed fall at the [facility]. She is unable to give any accurate history. They sent her in for evaluation. Physical Examination: Elderly female no acute distress vital signs are stable. She is afebrile. HEENT exam she has facial abrasions to her forehead and nose mild swelling to her nose. No active bleeding. Pupils round reactive light. Posterior scalp without hematoma. She has a c-collar on but her C-spine is nontender trachea is midline. Lungs clear to auscultation. Heart regular rhythm no murmur. Rate about 70. Chest wall nontender. Abdomen soft nontender normal bowel sounds no peritoneal signs. Pelvic girdle intact. No deformities. She is moving all 4 extremities. The upper and lower extremities were palpated full-length and showed no deformities or tenderness. She is able to move her woo nds and feet. Neurologically she is awake. Her eyes are open. She is demented but tries to answer questions. Back is nontender. Test Results: CT brain without contrast read by radiologist reviewed by me shows no acute abnormality. No fracture or intracranial bleed. Spine read by the radiologist reviewed by me showed no acute fracture. Pelvis x-ray one view shows no fracture. Both hips are unremarkable. One view read both by myself and the radiologist. Emergency Department Course and Treatment: Repeat exam at 1756 patient is doing well. No change. She will be discharged back to the nursing facility. Treatment Plan: Head injury instructions. Follow-up with the director of medical staff services at the [facility]. Ice to her face. Disposition: Discharge Impression: Acute unwitnessed fall Head injury with facial abrasions. History of dementia This note was generated with [employer] dictation software. It may contain incorrect words, spelling, and punctuation that were not noted in review of the chart prior to signing ED Disposition - Plan for ED Patient: Referrals: Jose Manuel Luz DO [Primary Care Provider] -
--- NOTE | 2019-03-05 17:58 | ED.DEP ---
ED Disposition - Plan for ED Patient: Disposition: Home or Assisted Living Instructions: HEAD INJURY, No Wake-Up (Adult) Referrals: Jose Manuel Luz DO [Primary Care Provider] - 1 Day for another exam Additional Instructions: Ice to her face. Tylenol for pain. Have her reevaluated by either the medical claims representative of the nursing facility or her primary care physician in the next day. Patient had CAT scans of her head and neck both were unremarkable. She had an x-ray of her pelvis no fracture seen.
[2019-03-05 18:09] VITALS: BP 147/69; PULSE 80; RESP 16; O2SAT 97
== END 2019-03-05 18:28 | disposition home or self-care (01) ==
PROVIDERS: Emergency Provider Emergency Medicine; Family Provider Family Medicine; PCP Family Medicine
DX: S00.81XA Abrasion of other part of head, initial encounter (principal); W19.XXXA Unspecified fall, initial encounter; Y93.9 Activity, unspecified; Y92.129 Unspecified place in nursing home as the place of occurrence of the external cause; E03.9 Hypothyroidism, unspecified; F03.90 Unspecified dementia, unspecified severity, without behavioral disturbance, psychotic disturbance, mood disturbance, and anxiety; Z66 Do not resuscitate; Z79.899 Other long term (current) drug therapy
CPT/HCPCS: 70450; 72125; 72170; 99284

== ENCOUNTER → 2019-03-24 14:10 | Outpatient (CLI) | payer MEDICARE, MEDICAID, SELFPAY ==
[2019-03-05 16:33] VITALS: BMI 27.9
--- NOTE | 2019-03-24 14:13 | CT_ITS ---
Study: CT of the left lower extremity without contrast. CLINICAL HISTORY: Left knee injury Prior study: None. PROCEDURE: Multiple computed tomographic images of the left knee region were obtained at 2.5 mm intervals using contiguous 2.5 mm thick slices in the axial projection. Coronal and sagittal reconstructions were obtained. Radiation dose: Total exam DLP: 610.89 FINDINGS: There is a nondisplaced comminuted fracture of the patella. There are moderately severe degenerative changes of the medial knee compartment and mild degenerative changes of the lateral and patellofemoral compartments. There is a small amount of blood in the suprapatellar bursa. There is no evidence of fracture of the visualized portion of femur, tibia, or fibula. Arterial calcifications are noted. CT/Extremity Lower without Contra IMPRESSION: Nondisplaced comminuted fracture of the patella. Tricompartmental degenerative changes of the knee most severely affecting the medial knee compartment. Small amount of blood in the suprapatellar bursa. Electronically Signed: Lauri Chisholm MD at 20:47 EST , Service support ,
== END ==
PROVIDERS: Family Provider Family Medicine; PCP Family Medicine; Referring Provider Family Medicine; Visit Provider Family Medicine
DX: M25.562 Pain in left knee (principal)
CPT/HCPCS: 73700

== ENCOUNTER → 2019-08-14 | Outpatient (CLI) | payer MEDICARE, SELFPAY | END | disposition home or self-care (01) | LOC: LABSPEC 08-15 12:22 | PROVIDERS: PCP Family Medicine; Referring Provider Family Medicine; Visit Provider Family Medicine | DX: J98.8 Other specified respiratory disorders (principal) | CPT/HCPCS: 87635; U0004 ==

== ENCOUNTER → 2020-09-09 05:00 | Outpatient (REF) | payer MEDICARE, MEDICAID, SELFPAY ==
[2020-09-09 09:32] LABS: Uric Acid 8.9 mg/dL (2.6-6.0)
== END ==
LOC: OLS.SW400 05:00
PROVIDERS: PCP Family Medicine; Referring Provider Internal Medicine; Visit Provider Internal Medicine
DX: M10.9 Gout, unspecified (principal)
CPT/HCPCS: 36415; 84550

== ENCOUNTER → 2020-09-16 04:00 | Outpatient (REF) | payer MEDICARE, MEDICAID, SELFPAY ==
[2020-09-16 07:32] LABS: Absolute Lymphocyte Count 2.14 X10^3/uL (0.83-4.51); Absolute Neutrophil Count 4.2 X10^3/uL (2.0-7.7); Basophil# 0.06 X10^3/uL; Basophil% 0.8 % (0-1); Eosinophil# 0.41 X10^3/uL; Eosinophils% 5.3 % (0-5); Hematocrit 36.7 % (37-47); Hemoglobin 11.2 g/dL (12.0-15.0); Lymphocyte # 2.14 X10^3/ul (0.83-4.51); Lymphocyte % 27.9 % (19-41); Mean Corp Hgb Conc 30.5 g/dL (32-36); Mean Corpuscular Hgb 28.9 pg (27.0-32.0); Mean Corpuscular Volume 94.8 fL (81-99); Mean Platelet Vol. 10.6 fl (6.2-12.0); Monocyte# 0.83 X10^3/uL; Monocyte% 10.8 % (0-10); NRBC Flagged by Analyzer 0 % (0-5); Neutrophil % 54.8 % (47-70); Platelet Count 261 K/mm3 (150-450); RBC Distribution Width CV 13.9 % (11.6-14.6); RBC Distribution Width SD 48.1 fl (35.1-43.9); Red Blood Count 3.87 M/mm3 (4.2-5.4); White Blood Count 7.7 K/mm3 (4.4-11.0)
[2020-09-16 07:50] LABS: Anion Gap 7 (5-15); BUN 17 mg/dL (7-18); BUN/Creat Ratio 20.6 RATIO (10-20); Calcium,Total 8.4 mg/dL (8.5-10.1); Chloride 110 mmol/L (98-107); Creatinine, Serum 0.82 mg/dL (0.55-1.02); EST Glomerular Filtration Rate 71 mL/min (>60); Est Glom Filt Rate - Afr Amer 85 mL/min (>60); Glucose 85 mg/dL (74-106); Potassium 3.8 mmol/L (3.5-5.1); Sodium Level 146 mmol/L (136-145)
== END ==
LOC: OLS.SW400 04:00
PROVIDERS: PCP Family Medicine; Visit Provider Internal Medicine
DX: R53.83 Other fatigue (principal)
CPT/HCPCS: 36415; 80048; 85025

== ENCOUNTER → 2020-09-24 05:00 | Outpatient (REF) | payer MEDICARE, MEDICAID, SELFPAY ==
[2020-09-24 07:30] LABS: Erythrocyte Sedimentation Rate 27 mm/hr (0-30)
[2020-09-24 07:49] LABS: CRP 5.44 mg/L (0.0-3.0)
== END ==
LOC: OLS.SW400 05:00
PROVIDERS: PCP Family Medicine; Visit Provider Internal Medicine
DX: R62.7 Adult failure to thrive (principal)
CPT/HCPCS: 36415; 85652; 86140

== ENCOUNTER → 2020-09-26 05:00 | Outpatient (REF) | payer MEDICARE, MEDICAID, SELFPAY ==
[2020-09-26 09:06] LABS: Anion Gap 5 (5-15); BUN 20 mg/dL (7-18); BUN/Creat Ratio 22.3 RATIO (10-20); Calcium,Total 8.4 mg/dL (8.5-10.1); Chloride 111 mmol/L (98-107); EST Glomerular Filtration Rate 64 mL/min (>60); Est Glom Filt Rate - Afr Amer 77 mL/min (>60); Glucose 92 mg/dL (74-106); Potassium 3.4 mmol/L (3.5-5.1); Sodium Level 144 mmol/L (136-145); Uric Acid 5.7 mg/dL (2.6-6.0)
== END ==
LOC: OLS.SW400 05:00
PROVIDERS: PCP Family Medicine; Visit Provider Internal Medicine
DX: E87.0 Hyperosmolality and hypernatremia (principal); M10.9 Gout, unspecified
CPT/HCPCS: 36415; 80048; 84550; 86140

== ENCOUNTER → 2020-10-10 06:35 | Outpatient (REF) | payer MEDICARE, MEDICAID, SELFPAY ==
[2020-10-10 08:42] LABS: ALB/GLOB Ratio 0.8 RATIO (0.9-2.4); AST(SGOT) 31 U/L (15-37); Alanine Aminotransfer ALT/SGPT 24 U/L (13-56); Albumin, Serum 3.4 g/dL (3.2-5.0); Alkaline Phosphatase 89 U/L (45-117); Anion Gap 8 (5-15); BUN 23 mg/dL (7-18); BUN/Creat Ratio 21.1 RATIO (10-20); Calcium,Total 8.5 mg/dL (8.5-10.1); Chloride 107 mmol/L (98-107); Cholesterol 151 mg/dL (200); Creatinine, Serum 1.09 mg/dL (0.55-1.02); EST Glomerular Filtration Rate 51 mL/min (>60); Est Glom Filt Rate - Afr Amer 62 mL/min (>60); Globulin 4.1 g/dL (2.2-4.2); Glucose 76 mg/dL (74-106); High Density Lipoprotein 64 mg/dL; Potassium 3.9 mmol/L (3.5-5.1); Protein, Total 7.5 g/dL (6.4-8.2); Sodium Level 139 mmol/L (136-145); Thyroid Stim Hormone (TSH) 2.29 uIU/mL (0.358-3.74); Triglycerides 173 mg/dL; Very Low Density Lipoprotein 35 mg/dL (5-40)
== END ==
LOC: OLS.SW400 06:35
PROVIDERS: PCP Family Medicine; Visit Provider Internal Medicine
DX: E78.5 Hyperlipidemia, unspecified (principal); E03.9 Hypothyroidism, unspecified; R53.83 Other fatigue
CPT/HCPCS: 36415; 80053; 80061; 84443

== ENCOUNTER → 2020-10-28 04:00 | Outpatient (REF) | payer MEDICARE, MEDICAID, SELFPAY ==
[2020-10-28 09:03] LABS: BUN 17 mg/dL (7-18); Creatinine, Serum 0.92 mg/dL (0.55-1.02); EST Glomerular Filtration Rate 63 mL/min (>60); Est Glom Filt Rate - Afr Amer 76 mL/min (>60)
== END ==
LOC: OLS.SW400 04:00
PROVIDERS: PCP Family Medicine; Referring Provider Family Medicine; Visit Provider Family Medicine
DX: R79.9 Abnormal finding of blood chemistry, unspecified (principal)
CPT/HCPCS: 36415; 82565; 84520

== ENCOUNTER → 2020-11-05 08:05 | Outpatient (CLI) | payer MEDICARE, MEDICAID, SELFPAY ==
--- NOTE | 2020-11-05 08:10 | CT_ITS ---
STUDY: CTA OF THE ABDOMINAL AORTA AND BILATERAL LOWER EXTREMITIES REASON FOR EXAM: Female, 80 years old. STRICTURE OF ARTERY RADIATION DOSAGE (If Supplied By Facility): CTDIvol = ( 8.61 ) mGy, DLP = ( 1138.12 ) mGycm TECHNIQUE: Axial CT angiography multi-detector data acquisition was obtained from the to the following intravenous administration of IV 100mL Isovue-370. Axial images and MIP images were reconstructed from the axial data set. Post-processing of the angiographic images was performed, with multiplanar reformation and 3D reconstruction. Individualized dose optimization techniques were used for this CT. TECHNICAL QUALITY: Good COMPARISON: None. Descriptors of Narrowing: None (0%) Mild (< 50%) Moderate (50-70%) Severe (70-90%) Subtotal/Total Occlusion (90-100%) Non-Evaluable (technically non-diagnostic FINDINGS: Abdominal aorta: No demonstrated narrowing. There is nonstenotic calcific arteriosclerosis involving the infrarenal abdominal aorta. Celiac and superior mesenteric arteries: No demonstrated narrowing. Inferior mesenteric artery: No demonstrated narrowing. Right renal artery(arteries): No demonstrated narrowing. Left renal artery(arteries): No demonstrated narrowing. Right common iliac artery: No demonstrated narrowing. Right external iliac artery: No demonstrated narrowing. Right internal iliac artery: No demonstrated narrowing. Left common iliac artery: No demonstrated narrowing. Left external iliac artery: No demonstrated narrowing. Left internal iliac artery: No demonstrated narrowing. RIGHT LOWER EXTREMITY Right common femoral artery: No demonstrated narrowing. Right profundus femoris: No demonstrated narrowing. Right superficial femoral: No demonstrated narrowing. Right popliteal artery: No demonstrated narrowing. Right tibioperoneal trunk: No demonstrated narrowing. Right anterior tibial artery: No demonstrated narrowing. Right posterior tibial artery: No demonstrated narrowing. Right peroneal artery: No demonstrated narrowing. LEFT LOWER EXTREMITY Left common femoral artery: No demonstrated narrowing. Left profundus femoris: No demonstrated narrowing. Left superficial femoral: No demonstrated narrowing. Left popliteal artery: No demonstrated narrowing. Left tibioperoneal trunk: No demonstrated narrowing. Left anterior tibial artery: No demonstrated narrowing. Left posterior tibial artery: No demonstrated narrowing. Left peroneal artery: No demonstrated narrowing. CT/CTA Abd w/Runoff W/WO Contrast IMPRESSION: Calcific arteriosclerosis is noted along the course of the abdominal aorta with minimal calcific arteriosclerosis of the common femoral arteries bilaterally but no evidence of hemodynamically significant arterial stenosis in good triple-vessel runoff to both ankles. Electronically Signed: Khurram De La Garza DO at 15:19 EDT Tel , Service support ,
== END ==
PROVIDERS: PCP Family Medicine; Referring Provider Surgery Vascular Surgery; Visit Provider Surgery Vascular Surgery
DX: I70.213 Atherosclerosis of native arteries of extremities with intermittent claudication, bilateral legs (principal); I77.1 Stricture of artery; M79.604 Pain in right leg; E07.9 Disorder of thyroid, unspecified
CPT/HCPCS: 75635; Q9967

== ENCOUNTER → 2020-11-11 04:00 | Outpatient (REF) | payer MEDICARE, MEDICAID, SELFPAY ==
[2020-11-11 07:57] LABS: Absolute Lymphocyte Count 1.44 X10^3/uL (0.83-4.51); Basophil# 0.07 X10^3/uL; Eosinophil# 0.33 X10^3/uL; Eosinophils% 4.9 % (0-5); Hematocrit 39.9 % (37-47); Hemoglobin 12.2 g/dL (12.0-15.0); Lymphocyte # 1.44 X10^3/ul (0.83-4.51); Lymphocyte % 21.4 % (19-41); Mean Corp Hgb Conc 30.6 g/dL (32-36); Mean Corpuscular Hgb 29.1 pg (27.0-32.0); Mean Corpuscular Volume 95.2 fL (81-99); Mean Platelet Vol. 10.8 fl (6.2-12.0); Monocyte# 0.85 X10^3/uL; Monocyte% 12.6 % (0-10); NRBC Flagged by Analyzer 0 % (0-5); Neutrophil # 4.02 X10^3/uL (2.7-7.7); Neutrophil % 59.7 % (47-70); Platelet Count 250 K/mm3 (150-450); Red Blood Count 4.19 M/mm3 (4.2-5.4); White Blood Count 6.7 K/mm3 (4.4-11.0)
[2020-11-11 08:12] LABS: Anion Gap 7 (5-15); BUN 18 mg/dL (7-18); BUN/Creat Ratio 22.9 RATIO (10-20); Calcium,Total 8.8 mg/dL (8.5-10.1); Chloride 107 mmol/L (98-107); Creatinine, Serum 0.79 mg/dL (0.55-1.02); EST Glomerular Filtration Rate 75 mL/min (>60); Est Glom Filt Rate - Afr Amer 90 mL/min (>60); Glucose 89 mg/dL (74-106); Potassium 3.3 mmol/L (3.5-5.1); Sodium Level 143 mmol/L (136-145)
== END ==
LOC: OLS.SW400 04:00
PROVIDERS: PCP Family Medicine; Visit Provider Internal Medicine
DX: R53.83 Other fatigue (principal)
CPT/HCPCS: 36415; 80048; 84550; 85025

== ENCOUNTER → 2020-11-21 05:00 | Outpatient (REF) | payer MEDICARE, MEDICAID, SELFPAY ==
[2020-11-21 08:52] LABS: Anion Gap 4 (5-15); BUN 21 mg/dL (7-18); BUN/Creat Ratio 22.5 RATIO (10-20); Calcium,Total 8.5 mg/dL (8.5-10.1); Chloride 109 mmol/L (98-107); Creatinine, Serum 0.93 mg/dL (0.55-1.02); EST Glomerular Filtration Rate 61 mL/min (>60); Est Glom Filt Rate - Afr Amer 74 mL/min (>60); Glucose 86 mg/dL (74-106); Sodium Level 145 mmol/L (136-145)
== END ==
LOC: OLS.SW400 05:00
PROVIDERS: PCP Family Medicine; Visit Provider Internal Medicine
DX: E03.9 Hypothyroidism, unspecified (principal); F03.90 Unspecified dementia, unspecified severity, without behavioral disturbance, psychotic disturbance, mood disturbance, and anxiety
CPT/HCPCS: 36415; 80048

== ENCOUNTER → 2021-01-06 04:00 | Outpatient (REF) | payer MEDICARE, MEDICAID, SELFPAY ==
[2021-01-06 08:27] LABS: Absolute Lymphocyte Count 1.68 X10^3/uL (0.83-4.51); Absolute Neutrophil Count 3.3 X10^3/uL (2.0-7.7); Basophil# 0.04 X10^3/uL; Basophil% 0.7 % (0-1); Eosinophil# 0.36 X10^3/uL; Hematocrit 36.2 % (37-47); Lymphocyte # 1.68 X10^3/ul (0.83-4.51); Lymphocyte % 27.9 % (19-41); Mean Corp Hgb Conc 30.4 g/dL (32-36); Mean Corpuscular Hgb 29.8 pg (27.0-32.0); Mean Corpuscular Volume 98.1 fL (81-99); Mean Platelet Vol. 11.8 fl (6.2-12.0); Monocyte# 0.62 X10^3/uL; Monocyte% 10.3 % (0-10); NRBC Flagged by Analyzer 0 % (0-5); Neutrophil % 54.8 % (47-70); Platelet Count 193 K/mm3 (150-450); RBC Distribution Width CV 14.2 % (11.6-14.6); RBC Distribution Width SD 51.3 fl (35.1-43.9); Red Blood Count 3.69 M/mm3 (4.2-5.4)
[2021-01-06 09:01] LABS: Anion Gap 6 (5-15); BUN 22 mg/dL (7-18); BUN/Creat Ratio 23.2 RATIO (10-20); Calcium,Total 8.6 mg/dL (8.5-10.1); Chloride 109 mmol/L (98-107); Creatinine, Serum 0.95 mg/dL (0.55-1.02); EST Glomerular Filtration Rate 60 mL/min (>60); Est Glom Filt Rate - Afr Amer 73 mL/min (>60); Glucose 88 mg/dL (74-106); Sodium Level 143 mmol/L (136-145)
== END ==
LOC: OLS.SW400 04:00
PROVIDERS: PCP Family Medicine; Visit Provider Internal Medicine
DX: R53.83 Other fatigue (principal)
CPT/HCPCS: 36415; 80048; 85025

== ENCOUNTER → 2021-01-09 05:00 | Outpatient (REF) | payer MEDICARE, MEDICAID, SELFPAY ==
[2021-01-09 10:36] LABS: ALB/GLOB Ratio 0.8 RATIO (0.9-2.4); AST(SGOT) 32 U/L (15-37); Alanine Aminotransfer ALT/SGPT 34 U/L (13-56); Albumin, Serum 3.3 g/dL (3.2-5.0); Alkaline Phosphatase 85 U/L (45-117); Anion Gap 8 (5-15); BUN 18 mg/dL (7-18); BUN/Creat Ratio 16.7 RATIO (10-20); Calcium,Total 8.9 mg/dL (8.5-10.1); Chloride 105 mmol/L (98-107); Cholesterol 131 mg/dL (200); Creatinine, Serum 1.08 mg/dL (0.55-1.02); EST Glomerular Filtration Rate 52 mL/min (>60); Est Glom Filt Rate - Afr Amer 63 mL/min (>60); Globulin 4.3 g/dL (2.2-4.2); Glucose 122 mg/dL (74-106); High Density Lipoprotein 51 mg/dL; Potassium 4.4 mmol/L (3.5-5.1); Protein, Total 7.6 g/dL (6.4-8.2); Sodium Level 139 mmol/L (136-145); Thyroid Stim Hormone (TSH) 1.14 uIU/mL (0.358-3.74); Triglycerides 173 mg/dL; Very Low Density Lipoprotein 35 mg/dL (5-40)
== END ==
LOC: OLS.SW400 05:00
PROVIDERS: PCP Family Medicine; Visit Provider Family Medicine
DX: R53.83 Other fatigue (principal); E78.5 Hyperlipidemia, unspecified; E03.9 Hypothyroidism, unspecified
CPT/HCPCS: 36415; 80053; 80061; 84443

== ENCOUNTER → 2021-03-03 05:00 | Outpatient (REF) | payer MEDICARE, MEDICAID, SELFPAY ==
[2021-03-03 07:34] LABS: Absolute Lymphocyte Count 2.32 X10^3/uL (0.83-4.51); Absolute Neutrophil Count 4.4 X10^3/uL (2.0-7.7); Basophil# 0.07 X10^3/uL; Basophil% 0.9 % (0-1); Eosinophil# 0.38 X10^3/uL; Eosinophils% 4.7 % (0-5); Hematocrit 36.9 % (37-47); Hemoglobin 11.8 g/dL (12.0-15.0); Lymphocyte # 2.32 X10^3/ul (0.83-4.51); Lymphocyte % 28.7 % (19-41); Mean Corpuscular Hgb 30.3 pg (27.0-32.0); Mean Corpuscular Volume 94.9 fL (81-99); Mean Platelet Vol. 11.1 fl (6.2-12.0); Monocyte# 0.85 X10^3/uL; Monocyte% 10.5 % (0-10); NRBC Flagged by Analyzer 0 % (0-5); Neutrophil # 4.39 X10^3/uL (2.7-7.7); Neutrophil % 54.3 % (47-70); Platelet Count 237 K/mm3 (150-450); RBC Distribution Width CV 14.8 % (11.6-14.6); RBC Distribution Width SD 51.2 fl (35.1-43.9); Red Blood Count 3.89 M/mm3 (4.2-5.4); White Blood Count 8.1 K/mm3 (4.4-11.0)
[2021-03-03 07:46] LABS: Anion Gap 7 (5-15); BUN 21 mg/dL (7-18); BUN/Creat Ratio 22.8 RATIO (10-20); Calcium,Total 8.8 mg/dL (8.5-10.1); Chloride 107 mmol/L (98-107); Creatinine, Serum 0.92 mg/dL (0.55-1.02); EST Glomerular Filtration Rate 62 mL/min (>60); Est Glom Filt Rate - Afr Amer 75 mL/min (>60); Glucose 88 mg/dL (74-106); Potassium 3.9 mmol/L (3.5-5.1); Sodium Level 143 mmol/L (136-145)
== END ==
LOC: OLS.SW400 05:00
PROVIDERS: PCP Family Medicine; Visit Provider Internal Medicine
DX: R53.83 Other fatigue (principal)
CPT/HCPCS: 36415; 80048; 85025

== ENCOUNTER → 2021-04-10 04:00 | Outpatient (REF) | payer MEDICARE, MEDICAID, SELFPAY ==
[2021-04-10 08:09] LABS: ALB/GLOB Ratio 0.9 RATIO (0.9-2.4); AST(SGOT) 27 U/L (15-37); Alanine Aminotransfer ALT/SGPT 44 U/L (13-56); Albumin, Serum 3.2 g/dL (3.2-5.0); Alkaline Phosphatase 72 U/L (45-117); Anion Gap 7 (5-15); BUN 35 mg/dL (7-18); BUN/Creat Ratio 30.4 RATIO (10-20); Calcium,Total 8.3 mg/dL (8.5-10.1); Chloride 111 mmol/L (98-107); Cholesterol 134 mg/dL (200); Creatinine, Serum 1.15 mg/dL (0.55-1.02); EST Glomerular Filtration Rate 48 mL/min (>60); Est Glom Filt Rate - Afr Amer 58 mL/min (>60); Globulin 3.6 g/dL (2.2-4.2); Glucose 94 mg/dL (74-106); High Density Lipoprotein 49 mg/dL; Potassium 3.7 mmol/L (3.5-5.1); Protein, Total 6.8 g/dL (6.4-8.2); Sodium Level 150 mmol/L (136-145); Thyroid Stim Hormone (TSH) 1.48 uIU/mL (0.358-3.74); Triglycerides 125 mg/dL; Very Low Density Lipoprotein 25 mg/dL (5-40)
== END ==
LOC: OLS.SW400 04:00
PROVIDERS: PCP Family Medicine; Referring Provider Family Medicine; Visit Provider Family Medicine
DX: R53.83 Other fatigue (principal); E78.5 Hyperlipidemia, unspecified; E03.9 Hypothyroidism, unspecified
CPT/HCPCS: 36415; 80053; 80061; 84443

== ENCOUNTER 2021-04-14 05:00 | Outpatient (REF) | payer MEDICARE, MEDICAID, SELFPAY ==
[2021-04-14 09:30] LABS: Anion Gap 7 (5-15); BUN 18 mg/dL (7-18); BUN/Creat Ratio 19.1 RATIO (10-20); Calcium,Total 8.7 mg/dL (8.5-10.1); Chloride 110 mmol/L (98-107); Creatinine, Serum 0.94 mg/dL (0.55-1.02); EST Glomerular Filtration Rate 60 mL/min (>60); Est Glom Filt Rate - Afr Amer 73 mL/min (>60); Glucose 83 mg/dL (74-106); Potassium 3.9 mmol/L (3.5-5.1); Sodium Level 144 mmol/L (136-145)
== END 2021-04-14 23:59 | disposition home or self-care (01) ==
LOC: OLS.SW400 05:00
PROVIDERS: PCP Family Medicine; Visit Provider Internal Medicine
DX: E87.0 Hyperosmolality and hypernatremia (principal)
CPT/HCPCS: 36415; 80048

== ENCOUNTER → 2021-04-28 04:00 | Outpatient (REF) | payer MEDICARE, MEDICAID, SELFPAY ==
[2021-04-28 08:26] LABS: Absolute Lymphocyte Count 1.49 X10^3/uL (0.83-4.51); Absolute Neutrophil Count 4.6 X10^3/uL (2.0-7.7); Basophil# 0.05 X10^3/uL; Basophil% 0.7 % (0-1); Eosinophil# 0.36 X10^3/uL; Eosinophils% 4.8 % (0-5); Hemoglobin 11.2 g/dL (12.0-15.0); Lymphocyte # 1.49 X10^3/ul (0.83-4.51); Mean Corp Hgb Conc 31.1 g/dL (32-36); Mean Corpuscular Hgb 30.5 pg (27.0-32.0); Mean Corpuscular Volume 98.1 fL (81-99); Mean Platelet Vol. 10.9 fl (6.2-12.0); Monocyte# 0.93 X10^3/uL; Monocyte% 12.5 % (0-10); NRBC Flagged by Analyzer 0 % (0-5); Neutrophil # 4.58 X10^3/uL (2.7-7.7); Neutrophil % 61.6 % (47-70); Platelet Count 190 K/mm3 (150-450); RBC Distribution Width CV 14.2 % (11.6-14.6); RBC Distribution Width SD 51.2 fl (35.1-43.9); Red Blood Count 3.67 M/mm3 (4.2-5.4); White Blood Count 7.4 K/mm3 (4.4-11.0)
[2021-04-28 08:37] LABS: Anion Gap 6 (5-15); BUN 19 mg/dL (7-18); BUN/Creat Ratio 21.6 RATIO (10-20); Calcium,Total 8.4 mg/dL (8.5-10.1); Chloride 106 mmol/L (98-107); Creatinine, Serum 0.88 mg/dL (0.55-1.02); EST Glomerular Filtration Rate 66 mL/min (>60); Est Glom Filt Rate - Afr Amer 79 mL/min (>60); Glucose 79 mg/dL (74-106); Potassium 3.5 mmol/L (3.5-5.1); Sodium Level 142 mmol/L (136-145)
== END ==
LOC: OLS.SW400 04:00
PROVIDERS: PCP Family Medicine; Visit Provider Internal Medicine
DX: R53.83 Other fatigue (principal)
CPT/HCPCS: 36415; 80048; 85025

== ENCOUNTER → 2021-06-23 | Outpatient (REF) | payer MEDICARE, MEDICAID, SELFPAY ==
[2021-06-23 08:25] LABS: Absolute Neutrophil Count 3.4 X10^3/uL (2.0-7.7); Basophil# 0.05 X10^3/uL; Basophil% 0.9 % (0-1); Eosinophil# 0.42 X10^3/uL; Eosinophils% 7.3 % (0-5); Hematocrit 37.4 % (37-47); Lymphocyte % 24.3 % (19-41); Mean Corp Hgb Conc 32.1 g/dL (32-36); Mean Corpuscular Hgb 30.5 pg (27.0-32.0); Mean Corpuscular Volume 95.2 fL (81-99); Mean Platelet Vol. 11.1 fl (6.2-12.0); Monocyte# 0.52 X10^3/uL; NRBC Flagged by Analyzer 0 % (0-5); Neutrophil # 3.35 X10^3/uL (2.7-7.7); Neutrophil % 58.2 % (47-70); Platelet Count 209 K/mm3 (150-450); RBC Distribution Width CV 13.4 % (11.6-14.6); RBC Distribution Width SD 46.9 fl (35.1-43.9); Red Blood Count 3.93 M/mm3 (4.2-5.4); White Blood Count 5.8 K/mm3 (4.4-11.0)
[2021-06-23 08:37] LABS: Anion Gap 4 (5-15); BUN 21 mg/dL (7-18); BUN/Creat Ratio 24.2 RATIO (10-20); Calcium,Total 8.4 mg/dL (8.5-10.1); Chloride 105 mmol/L (98-107); Creatinine, Serum 0.87 mg/dL (0.55-1.02); EST Glomerular Filtration Rate 66 mL/min (>60); Est Glom Filt Rate - Afr Amer 80 mL/min (>60); Glucose 87 mg/dL (74-106); Potassium 3.5 mmol/L (3.5-5.1); Sodium Level 141 mmol/L (136-145)
== END | disposition home or self-care (01) ==
LOC: OLS.SW400 06:30
PROVIDERS: PCP Family Medicine; Referring Provider Internal Medicine; Visit Provider Internal Medicine
DX: R53.83 Other fatigue (principal); R62.7 Adult failure to thrive
CPT/HCPCS: 36415; 80048; 85025

== ENCOUNTER → 2021-07-10 | Outpatient (REF) | payer MEDICARE, MEDICAID, SELFPAY ==
[2021-07-10 09:37] LABS: ALB/GLOB Ratio 0.8 RATIO (0.9-2.4); AST(SGOT) 30 U/L (15-37); Alanine Aminotransfer ALT/SGPT 39 U/L (13-56); Albumin, Serum 3.1 g/dL (3.2-5.0); Alkaline Phosphatase 72 U/L (45-117); Anion Gap 3 (5-15); BUN 24 mg/dL (7-18); Calcium,Total 8.8 mg/dL (8.5-10.1); Chloride 111 mmol/L (98-107); Cholesterol 119 mg/dL (200); EST Glomerular Filtration Rate 57 mL/min (>60); Est Glom Filt Rate - Afr Amer 68 mL/min (>60); Globulin 3.7 g/dL (2.2-4.2); Glucose 92 mg/dL (74-106); High Density Lipoprotein 46 mg/dL; Potassium 3.6 mmol/L (3.5-5.1); Protein, Total 6.8 g/dL (6.4-8.2); Sodium Level 146 mmol/L (136-145); Thyroid Stim Hormone (TSH) 1.28 uIU/mL (0.358-3.74); Triglycerides 177 mg/dL; Very Low Density Lipoprotein 35 mg/dL (5-40)
== END | disposition home or self-care (01) ==
LOC: OLS.SW400 04:00
PROVIDERS: PCP Family Medicine; Referring Provider Family Medicine; Visit Provider Family Medicine
DX: E03.9 Hypothyroidism, unspecified (principal); E78.5 Hyperlipidemia, unspecified; R53.83 Other fatigue
CPT/HCPCS: 36415; 80053; 80061; 84443

== ENCOUNTER → 2021-07-17 | Outpatient (REF) | payer MEDICARE, MEDICAID, SELFPAY ==
[2021-07-17 08:25] LABS: Anion Gap 3 (5-15); BUN 19 mg/dL (7-18); BUN/Creat Ratio 23.8 RATIO (10-20); Calcium,Total 8.8 mg/dL (8.5-10.1); Chloride 111 mmol/L (98-107); EST Glomerular Filtration Rate 73 mL/min (>60); Est Glom Filt Rate - Afr Amer 88 mL/min (>60); Glucose 80 mg/dL (74-106); Potassium 3.6 mmol/L (3.5-5.1); Sodium Level 146 mmol/L (136-145)
== END | disposition home or self-care (01) ==
LOC: OLS.SW400 04:00
PROVIDERS: PCP Family Medicine; Referring Provider Internal Medicine; Visit Provider Internal Medicine
DX: R53.83 Other fatigue (principal)
CPT/HCPCS: 36415; 80048

== ENCOUNTER → 2021-08-18 | Outpatient (REF) | payer MEDICARE, MEDICAID, SELFPAY ==
[2021-08-18 08:43] LABS: Absolute Lymphocyte Count 1.47 X10^3/uL (0.83-4.51); Absolute Neutrophil Count 3.2 X10^3/uL (2.0-7.7); Basophil# 0.07 X10^3/uL; Basophil% 1.2 % (0-1); Eosinophil# 0.42 X10^3/uL; Eosinophils% 7.1 % (0-5); Hematocrit 38.7 % (37-47); Hemoglobin 11.8 g/dL (12.0-15.0); Lymphocyte # 1.47 X10^3/ul (0.83-4.51); Lymphocyte % 24.9 % (19-41); Mean Corp Hgb Conc 30.5 g/dL (32-36); Mean Corpuscular Hgb 29.9 pg (27.0-32.0); Mean Platelet Vol. 11.2 fl (6.2-12.0); Monocyte# 0.74 X10^3/uL; Monocyte% 12.5 % (0-10); NRBC Flagged by Analyzer 0 % (0-5); Neutrophil % 54.1 % (47-70); Platelet Count 220 K/mm3 (150-450); RBC Distribution Width CV 14.4 % (11.6-14.6); Red Blood Count 3.95 M/mm3 (4.2-5.4); White Blood Count 5.9 K/mm3 (4.4-11.0)
[2021-08-18 08:56] LABS: Anion Gap 6 (5-15); BUN 21 mg/dL (7-18); BUN/Creat Ratio 28.6 RATIO (10-20); Calcium,Total 8.7 mg/dL (8.5-10.1); Chloride 110 mmol/L (98-107); Creatinine, Serum 0.73 mg/dL (0.55-1.02); EST Glomerular Filtration Rate 81 mL/min (>60); Est Glom Filt Rate - Afr Amer 98 mL/min (>60); Glucose 80 mg/dL (74-106); Potassium 3.7 mmol/L (3.5-5.1); Sodium Level 146 mmol/L (136-145)
== END | disposition home or self-care (01) ==
LOC: OLS.SW400 05:00
PROVIDERS: PCP Family Medicine; Visit Provider Internal Medicine
DX: R53.83 Other fatigue (principal)
CPT/HCPCS: 36415; 80048; 85025

== ENCOUNTER → 2021-09-02 | Outpatient (REF) | payer MEDICARE, MEDICAID, SELFPAY ==
[2021-09-02 09:18] LABS: Anion Gap 7 (5-15); BUN 18 mg/dL (7-18); BUN/Creat Ratio 19.9 RATIO (10-20); Calcium,Total 8.7 mg/dL (8.5-10.1); Chloride 108 mmol/L (98-107); EST Glomerular Filtration Rate 63 mL/min (>60); Est Glom Filt Rate - Afr Amer 77 mL/min (>60); Glucose 80 mg/dL (74-106); Potassium 3.8 mmol/L (3.5-5.1); Sodium Level 143 mmol/L (136-145)
== END | disposition home or self-care (01) ==
LOC: OLS.SW400 04:00
PROVIDERS: PCP Family Medicine; Referring Provider Internal Medicine; Visit Provider Internal Medicine
DX: R53.83 Other fatigue (principal); R62.7 Adult failure to thrive
CPT/HCPCS: 36415; 80048

== ENCOUNTER → 2021-10-09 05:00 | Outpatient (REF) | payer MEDICARE, MEDICAID, SELFPAY ==
[2021-10-09 09:06] LABS: ALB/GLOB Ratio 0.8 RATIO (0.9-2.4); AST(SGOT) 20 U/L (15-37); Alanine Aminotransfer ALT/SGPT 31 U/L (13-56); Albumin, Serum 2.8 g/dL (3.2-5.0); Alkaline Phosphatase 63 U/L (45-117); Anion Gap 6 (5-15); BUN 28 mg/dL (7-18); BUN/Creat Ratio 27.7 RATIO (10-20); Calcium,Total 8.8 mg/dL (8.5-10.1); Chloride 107 mmol/L (98-107); Cholesterol 128 mg/dL (200); Creatinine, Serum 1.01 mg/dL (0.55-1.02); EST Glomerular Filtration Rate 56 mL/min (>60); Est Glom Filt Rate - Afr Amer 67 mL/min (>60); Globulin 3.4 g/dL (2.2-4.2); Glucose 81 mg/dL (74-106); High Density Lipoprotein 37 mg/dL; Potassium 4.1 mmol/L (3.5-5.1); Protein, Total 6.2 g/dL (6.4-8.2); Sodium Level 143 mmol/L (136-145); Thyroid Stim Hormone (TSH) 2.99 uIU/mL (0.358-3.74); Triglycerides 225 mg/dL; Very Low Density Lipoprotein 45 mg/dL (5-40)
== END ==
LOC: OLS.SW400 05:00
PROVIDERS: PCP Family Medicine; Visit Provider Internal Medicine
DX: R53.83 Other fatigue (principal); E78.5 Hyperlipidemia, unspecified; E03.9 Hypothyroidism, unspecified
CPT/HCPCS: 36415; 80053; 80061; 84443

== ENCOUNTER → 2021-10-13 05:00 | Outpatient (REF) | payer MEDICARE, MEDICAID, SELFPAY ==
[2021-10-13 07:41] LABS: Absolute Lymphocyte Count 1.92 X10^3/uL (0.83-4.51); Absolute Neutrophil Count 3.3 X10^3/uL (2.0-7.7); Basophil# 0.08 X10^3/uL; Basophil% 1.2 % (0-1); Eosinophil# 0.45 X10^3/uL; Eosinophils% 6.9 % (0-5); Hematocrit 38.2 % (37-47); Hemoglobin 11.5 g/dL (12.0-15.0); Lymphocyte # 1.92 X10^3/ul (0.83-4.51); Lymphocyte % 29.4 % (19-41); Mean Corp Hgb Conc 30.1 g/dL (32-36); Mean Corpuscular Hgb 29.6 pg (27.0-32.0); Mean Corpuscular Volume 98.2 fL (81-99); Mean Platelet Vol. 10.6 fl (6.2-12.0); Monocyte# 0.81 X10^3/uL; Monocyte% 12.4 % (0-10); NRBC Flagged by Analyzer 0 % (0-5); Neutrophil # 3.26 X10^3/uL (2.7-7.7); Neutrophil % 49.8 % (47-70); Platelet Count 275 K/mm3 (150-450); RBC Distribution Width CV 14.4 % (11.6-14.6); RBC Distribution Width SD 51.9 fl (35.1-43.9); Red Blood Count 3.89 M/mm3 (4.2-5.4); White Blood Count 6.5 K/mm3 (4.4-11.0)
[2021-10-13 07:49] LABS: Anion Gap 9 (5-15); BUN 26 mg/dL (7-18); BUN/Creat Ratio 33.8 RATIO (10-20); Calcium,Total 8.7 mg/dL (8.5-10.1); Chloride 106 mmol/L (98-107); Creatinine, Serum 0.77 mg/dL (0.55-1.02); EST Glomerular Filtration Rate 76 mL/min (>60); Est Glom Filt Rate - Afr Amer 92 mL/min (>60); Glucose 92 mg/dL (74-106); Potassium 3.8 mmol/L (3.5-5.1); Sodium Level 145 mmol/L (136-145)
== END ==
LOC: OLS.SW400 05:00
PROVIDERS: PCP Family Medicine; Visit Provider Internal Medicine
DX: R53.83 Other fatigue (principal)
CPT/HCPCS: 36415; 80048; 85025

== ENCOUNTER → 2021-12-09 | Outpatient (REF) | payer MEDICARE, MEDICAID, SELFPAY ==
[2021-12-09 11:04] LABS: Absolute Lymphocyte Count 1.57 X10^3/uL (0.83-4.51); Absolute Neutrophil Count 5.2 X10^3/uL (2.0-7.7); Basophil# 0.06 X10^3/uL; Basophil% 0.8 % (0-1); Eosinophil# 0.37 X10^3/uL; Eosinophils% 4.6 % (0-5); Hematocrit 41.5 % (37-47); Hemoglobin 12.9 g/dL (12.0-15.0); Lymphocyte # 1.57 X10^3/ul (0.83-4.51); Lymphocyte % 19.7 % (19-41); Mean Corp Hgb Conc 31.1 g/dL (32-36); Mean Corpuscular Hgb 30.4 pg (27.0-32.0); Mean Corpuscular Volume 97.9 fL (81-99); Mean Platelet Vol. 10.9 fl (6.2-12.0); Monocyte# 0.74 X10^3/uL; Monocyte% 9.3 % (0-10); NRBC Flagged by Analyzer 0 % (0-5); Neutrophil # 5.22 X10^3/uL (2.7-7.7); Neutrophil % 65.3 % (47-70); Platelet Count 255 K/mm3 (150-450); RBC Distribution Width SD 50.4 fl (35.1-43.9); Red Blood Count 4.24 M/mm3 (4.2-5.4)
[2021-12-09 11:35] LABS: Anion Gap 10 (5-15); BUN 22 mg/dL (7-18); BUN/Creat Ratio 21.4 RATIO (10-20); Calcium,Total 8.8 mg/dL (8.5-10.1); Chloride 103 mmol/L (98-107); Creatinine, Serum 1.03 mg/dL (0.55-1.02); EST Glomerular Filtration Rate 54 mL/min (>60); Est Glom Filt Rate - Afr Amer 66 mL/min (>60); Glucose 90 mg/dL (74-106); Potassium 4.2 mmol/L (3.5-5.1); Sodium Level 141 mmol/L (136-145)
== END ==
LOC: OLS.SW400 05:00
PROVIDERS: PCP Family Medicine; Visit Provider Internal Medicine
DX: R53.83 Other fatigue (principal)
CPT/HCPCS: 36415; 80048; 85025

== ENCOUNTER → 2022-01-02 | Outpatient (CLI) | payer MEDICARE, MEDICAID, SELFPAY ==
--- NOTE | 2022-01-02 08:55 | ART_ITS ---
Reason For Study: STRICTURE OF ARTERY, Procedure A bilateral lower extremity continuous wave Doppler with analog waveform analysis and ankle brachial indexes. Left Segmental Pressures Left brachial= 121mmHg. Left posterior tibial artery = 122mmHg. Left dorsalis pedis artery = 110mmHg. Left digit = 113 mmHg. The left posterior tibial artery waveforms are triphasic. The left dorsalis pedis waveforms are triphasic. Right Segmental Pressures Right brachial= 110mmHg. Right posterior tibial artery = 124mmHg. Right dorsalis pedis artery = 93mmHg. Right digit = 110 mmHg. The right posterior tibial artery waveforms are triphasic. The right dorsalis pedis waveforms are triphasic. Indices The right resting ankle brachial index is 1.02. The right ankle brachial index by the posterior tibial artery is 1.02. The right ankle brachial index by the dorsalis pedis is 0.77. The right digital-brachial index is 0.91. The left resting ankle brachial index is 1.01. The left ankle brachial index by the posterior tibial artery is 1.01. The left ankle brachial index by the dorsalis pedis is 0.91. The left digital-brachial index is 0.93. VL/Ankle Brachial Index Interpretation Summary Bilateral no significant occlussive disease at rest with bilateral triphasic fl ow and SHANI 1.02 and 1.01. DBI 0.77 and 0.93. Ordering Physician: Jose Manuel Cali Referring Physician: Jose Manuel Luz Performed By: Layla Vasquez Benny, RDCS
== END | disposition home or self-care (01) ==
PROVIDERS: PCP Family Medicine; Referring Provider Surgery Vascular Surgery; Visit Provider Surgery Vascular Surgery
DX: I77.1 Stricture of artery (principal); I70.213 Atherosclerosis of native arteries of extremities with intermittent claudication, bilateral legs; M79.604 Pain in right leg
CPT/HCPCS: 93922

== ENCOUNTER → 2022-01-08 | Outpatient (REF) | payer MEDICARE, MEDICAID, SELFPAY ==
[2022-01-08 09:10] LABS: ALB/GLOB Ratio 0.7 RATIO (0.9-2.4); AST(SGOT) 25 U/L (15-37); Alanine Aminotransfer ALT/SGPT 40 U/L (13-56); Albumin, Serum 2.9 g/dL (3.2-5.0); Alkaline Phosphatase 73 U/L (45-117); Anion Gap 5 (5-15); BUN 22 mg/dL (7-18); BUN/Creat Ratio 22.2 RATIO (10-20); Calcium,Total 8.7 mg/dL (8.5-10.1); Chloride 113 mmol/L (98-107); Cholesterol 102 mg/dL (200); Creatinine, Serum 0.99 mg/dL (0.55-1.02); EST Glomerular Filtration Rate 57 mL/min (>60); Est Glom Filt Rate - Afr Amer 69 mL/min (>60); Globulin 4.1 g/dL (2.2-4.2); Glucose 96 mg/dL (74-106); High Density Lipoprotein 43 mg/dL; Potassium 3.7 mmol/L (3.5-5.1); Sodium Level 146 mmol/L (136-145); Thyroid Stim Hormone (TSH) 1.57 uIU/mL (0.358-3.74); Triglycerides 109 mg/dL; Very Low Density Lipoprotein 22 mg/dL (5-40)
== END ==
LOC: OLS.SW400 05:00
PROVIDERS: PCP Family Medicine; Visit Provider Family Medicine
DX: R53.83 Other fatigue (principal); E78.5 Hyperlipidemia, unspecified; E03.9 Hypothyroidism, unspecified
CPT/HCPCS: 36415; 80053; 80061; 84443

== ENCOUNTER → 2022-01-19 | Outpatient (REF) | payer MEDICARE, MEDICAID, SELFPAY ==
[2022-01-19 08:17] LABS: Anion Gap 7 (5-15); BUN 19 mg/dL (7-18); BUN/Creat Ratio 20.4 RATIO (10-20); Calcium,Total 8.7 mg/dL (8.5-10.1); Chloride 108 mmol/L (98-107); Creatinine, Serum 0.93 mg/dL (0.55-1.02); EST Glomerular Filtration Rate 61 mL/min (>60); Est Glom Filt Rate - Afr Amer 74 mL/min (>60); Glucose 87 mg/dL (74-106); Sodium Level 144 mmol/L (136-145)
== END ==
LOC: OLS.SW400 04:00
PROVIDERS: PCP Family Medicine; Referring Provider Internal Medicine; Visit Provider Internal Medicine
DX: E86.0 Dehydration (principal)
CPT/HCPCS: 36415; 80048

== ENCOUNTER → 2022-02-03 | Outpatient (REF) | payer MEDICARE, MEDICAID, SELFPAY ==
[2022-02-03 09:04] LABS: Absolute Lymphocyte Count 1.87 X10^3/uL (0.83-4.51); Absolute Neutrophil Count 4.3 X10^3/uL (2.0-7.7); Basophil# 0.07 X10^3/uL; Basophil% 0.9 % (0-1); Eosinophil# 0.46 X10^3/uL; Eosinophils% 6.1 % (0-5); Hematocrit 39.2 % (37-47); Hemoglobin 12.5 g/dL (12.0-15.0); Lymphocyte # 1.87 X10^3/ul (0.83-4.51); Lymphocyte % 24.9 % (19-41); Mean Corp Hgb Conc 31.9 g/dL (32-36); Mean Corpuscular Hgb 30.3 pg (27.0-32.0); Mean Corpuscular Volume 95.1 fL (81-99); Monocyte# 0.75 X10^3/uL; NRBC Flagged by Analyzer 0 % (0-5); Neutrophil # 4.31 X10^3/uL (2.7-7.7); Neutrophil % 57.6 % (47-70); Platelet Count 196 K/mm3 (150-450); RBC Distribution Width CV 14.2 % (11.6-14.6); RBC Distribution Width SD 49.4 fl (35.1-43.9); Red Blood Count 4.12 M/mm3 (4.2-5.4); White Blood Count 7.5 K/mm3 (4.4-11.0)
[2022-02-03 09:10] LABS: Anion Gap 6 (5-15); BUN 25 mg/dL (7-18); BUN/Creat Ratio 26.4 RATIO (10-20); Calcium,Total 8.9 mg/dL (8.5-10.1); Chloride 108 mmol/L (98-107); Creatinine, Serum 0.95 mg/dL (0.55-1.02); EST Glomerular Filtration Rate 60 mL/min (>60); Est Glom Filt Rate - Afr Amer 73 mL/min (>60); Glucose 93 mg/dL (74-106); Potassium 3.8 mmol/L (3.5-5.1); Sodium Level 142 mmol/L (136-145)
== END ==
LOC: OLS.SW 05:00
PROVIDERS: PCP Family Medicine; Visit Provider Internal Medicine
DX: R53.83 Other fatigue (principal)
CPT/HCPCS: 36415; 80048; 85025

== ENCOUNTER → 2022-03-31 | Outpatient (REF) | payer MEDICARE, MEDICAID, SELFPAY ==
[2022-03-31 09:42] LABS: Absolute Neutrophil Count 5.7 X10^3/uL (2.0-7.7); Basophil# 0.08 X10^3/uL; Basophil% 0.9 % (0-1); Eosinophil# 0.44 X10^3/uL; Eosinophils% 4.9 % (0-5); Hematocrit 42.1 % (37-47); Hemoglobin 12.7 g/dL (12.0-15.0); Lymphocyte % 20.2 % (19-41); Mean Corp Hgb Conc 30.2 g/dL (32-36); Mean Corpuscular Hgb 29.1 pg (27.0-32.0); Mean Corpuscular Volume 96.6 fL (81-99); Mean Platelet Vol. 10.8 fl (6.2-12.0); Monocyte# 0.83 X10^3/uL; Monocyte% 9.3 % (0-10); NRBC Flagged by Analyzer 0 % (0-5); Neutrophil # 5.74 X10^3/uL (2.7-7.7); Neutrophil % 64.5 % (47-70); Platelet Count 243 K/mm3 (150-450); RBC Distribution Width CV 14.3 % (11.6-14.6); RBC Distribution Width SD 50.7 fl (35.1-43.9); Red Blood Count 4.36 M/mm3 (4.2-5.4); White Blood Count 8.9 K/mm3 (4.4-11.0)
[2022-03-31 10:02] LABS: Anion Gap 6 (5-15); BUN 25 mg/dL (7-18); BUN/Creat Ratio 28.4 RATIO (10-20); Chloride 106 mmol/L (98-107); Creatinine, Serum 0.88 mg/dL (0.55-1.02); EST Glomerular Filtration Rate 65 mL/min (>60); Est Glom Filt Rate - Afr Amer 79 mL/min (>60); Glucose 83 mg/dL (74-106); Potassium 3.7 mmol/L (3.5-5.1); Sodium Level 142 mmol/L (136-145)
== END ==
LOC: OLS.SW 04:00
PROVIDERS: PCP Family Medicine; Referring Provider Internal Medicine; Visit Provider Internal Medicine
DX: R53.83 Other fatigue (principal)
CPT/HCPCS: 36415; 80048; 85025

== ENCOUNTER → 2022-04-09 | Outpatient (REF) | payer MEDICARE, MEDICAID, SELFPAY ==
[2022-04-09 10:14] LABS: ALB/GLOB Ratio 0.8 RATIO (0.9-2.4); AST(SGOT) 18 U/L (15-37); Alanine Aminotransfer ALT/SGPT 31 U/L (13-56); Albumin, Serum 3.1 g/dL (3.2-5.0); Alkaline Phosphatase 64 U/L (45-117); Anion Gap 5 (5-15); BUN 24 mg/dL (7-18); BUN/Creat Ratio 28.6 RATIO (10-20); Calcium,Total 8.7 mg/dL (8.5-10.1); Chloride 111 mmol/L (98-107); Cholesterol 114 mg/dL (200); Creatinine, Serum 0.84 mg/dL (0.55-1.02); EST Glomerular Filtration Rate 69 mL/min (>60); Est Glom Filt Rate - Afr Amer 83 mL/min (>60); Globulin 3.9 g/dL (2.2-4.2); Glucose 84 mg/dL (74-106); High Density Lipoprotein 48 mg/dL; Potassium 3.8 mmol/L (3.5-5.1); Sodium Level 146 mmol/L (136-145); Thyroid Stim Hormone (TSH) 0.82 uIU/mL (0.358-3.74); Triglycerides 123 mg/dL; Very Low Density Lipoprotein 25 mg/dL (5-40)
== END ==
LOC: OLS.SW 05:00
PROVIDERS: PCP Family Medicine; Visit Provider Family Medicine
DX: R53.83 Other fatigue (principal); I10 Essential (primary) hypertension; E78.5 Hyperlipidemia, unspecified
CPT/HCPCS: 36415; 80053; 80061; 84443

== ENCOUNTER 2022-04-23 17:59 | Inpatient (IN) | payer MEDICARE, MEDICAID, SELFPAY ==
[2022-04-23] VITALS (13 sets, daily range): BP systolic 105–130; BP diastolic 69–109; PULSE 83–120; RESP 12–30; TEMP 36.3–38.1; O2SAT 78–100; BMI 23.8; BMI 22.6
--- NOTE | 2022-04-23 18:23 | EKG12_ITS ---
Test Reason : SOB Blood Pressure : / mmHG Vent. Rate : 109 BPM Atrial Rate : 109 BPM P-R Int : 158 ms QRS Dur : 068 ms QT Int : 332 ms P-R-T Axes : 049 -15 048 degrees QTc Int : 447 ms Sinus tachycardia with Fusion complexes Inferior infarct , age undetermined Abnormal ECG Confirmed by SHARRON MOTTA, FRANCISCO ([id number]), editor producer MICH GALLEGOS ([id number]) on 04/27/2022 10:37:58 AM Referred By: Confirmed By:FRANCISCO MCDERMOTT MD
[2022-04-23] MEDS: Ipratropium/Albuterol Sulfate 3 ML AMPUL.NEB INHALATION (18:36)
[2022-04-23 18:50] LABS: Absolute Lymphocyte Count 1.44 X10^3/uL (0.83-4.51); Absolute Neutrophil Count 6.3 X10^3/uL (2.0-7.7); Basophil# 0.08 X10^3/uL; Basophil% 0.9 % (0-1); Eosinophil# 0.35 X10^3/uL; Eosinophils% 3.8 % (0-5); Hematocrit 47.2 % (37-47); Hemoglobin 14.5 g/dL (12.0-15.0); Lymphocyte # 1.44 X10^3/ul (0.83-4.51); Lymphocyte % 15.8 % (19-41); Mean Corp Hgb Conc 30.7 g/dL (32-36); Mean Corpuscular Hgb 29.5 pg (27.0-32.0); Mean Corpuscular Volume 96.1 fL (81-99); Mean Platelet Vol. 10.9 fl (6.2-12.0); Monocyte# 0.93 X10^3/uL; Monocyte% 10.2 % (0-10); NRBC Flagged by Analyzer 0 % (0-5); Neutrophil # 6.31 X10^3/uL (2.7-7.7); Neutrophil % 69.1 % (47-70); Platelet Count 254 K/mm3 (150-450); RBC Distribution Width CV 13.8 % (11.6-14.6); RBC Distribution Width SD 49.1 fl (35.1-43.9); Red Blood Count 4.91 M/mm3 (4.2-5.4); White Blood Count 9.1 K/mm3 (4.4-11.0)
[2022-04-23 18:56] LABS: Allen Test Positive; Base Excess 1 mmol/L (-2 to +2); Bicarbonate 26.2 mmol/L (22-26); Blood Gas Specimen Type ART; O2 Delivery Device Cannula; PO2 74 mmHG (75-100); SITE R Radial; SO2 94 % (95-99); Total Carbon Dioxide 28 mmol/L; pCO2 43.9 mmHg (35-45); pH 7.38 (7.35-7.45)
--- NOTE | 2022-04-23 19:00 | RAD_ITS ---
STUDY: X-RAY CHEST REASON FOR EXAM: Female, 81 years old. resepiratory distress TECHNIQUE: XR Chest 1 View COMPARISON: 04.20.18 FINDINGS: There is atherosclerotic calcification of the aortic arch with tortuosity. There are diffuse degenerative changes of the visualized thoracic spine. There is degenerative osteoarthritis of the bilateral shoulders. There is no demonstrated pleural abnormality. Normal size heart. Normal mediastinum and holly. Normal visualized pulmonary arteries. There is no demonstrated abnormality of the visualized soft tissue structures of the upper abdomen. RAD/Chest 1 View (Portable) IMPRESSION: There are no acute findings. Electronically Signed: Zachary Palma MD at 19:33 EST ,
[2022-04-23 19:16] LABS: Anion Gap 5 (5-15); BUN 26 mg/dL (7-18); BUN/Creat Ratio 26.1 RATIO (10-20); Calcium,Total 9.2 mg/dL (8.5-10.1); Chloride 106 mmol/L (98-107); EST Glomerular Filtration Rate 57 mL/min (>60); Est Glom Filt Rate - Afr Amer 68 mL/min (>60); Estimated Creatinine Clearance 35.88 ml/min; Glucose 127 mg/dL (74-106); Potassium 4.7 mmol/L (3.5-5.1); Sodium Level 138 mmol/L (136-145); Troponin-I HS 8 pg/mL (3.0-54.0)
[2022-04-23 19:28] LABS: BNP,B-Type NATRIURETIC PEPTIDE 126.3 pg/mL (0-100)
--- NOTE | 2022-04-23 20:08 | EDS_ITS ---
HPI History of Present Illness Chief Complaint: Shortness of Breath Informant: EMS and SNF Limited: dementia Narrative Narrative: Patient is an 81-year-old female with history of dementia, ANO x1 at baseline, hypothyroid, osteoporosis, hyperlipidemia and aspiration pneumonia in 2019 presenting with respiratory distress. Per squad report, about 10 minutes prior to arrival patient became acutely short of breath. Patient was 78% on room air when EMS arrived. Patient is a resident [facility]. She is placed on 6 L of oxygen brought up to 92%. Patient had very wet breath sounds. I spoke to her primary care doctor who thought maybe she was fluid overload however patient CHF/fluid overload. She was sent in for further evaluation. Patient's brother and niece are at the bedside who are her medical decision makers. They confirm that she is DNR CCA however they do not know if they would want her intubated. [facility] Medical History Dementia Dysphagia Hypothyroid Osteoporosis Home Medications alendronate 35 mg tablet 35 mg PO FR bones 01/04/19 [History Last Taken 12/30/18] atorvastatin 40 mg tablet 40 mg PO DAILY cholesterol 01/04/19 [History Last Taken 01/04/19] levothyroxine 88 mcg tablet 75 mcg PO DAILY thyroid 01/04/19 [History Last Taken 01/04/19] metoprolol tartrate 25 mg tablet 25 mg PO BID 01/04/19 [History Last Taken 01/04/19] acetaminophen 325 mg tablet 650 mg PO Q6H PRN PRN Mild Pain (1-3)/Temp > 100.7 F 01/08/19 [Rx Last Taken Unknown] ipratropium 0.5 mg-albuterol 3 mg (2.5 mg base)/3 mL nebulization soln 3 ml inhalation Q4H.RT PRN Sob &/Or Wheezing 01/08/19 [Rx Last Taken Unknown] nystatin 100,000 unit/gram topical powder 1 applic topical BID 01/08/19 [Rx Last Taken Unknown] bisacodyl 10 mg rectal suppository 10 mg NE DAILY PRN Constipation 03/05/19 [History Last Taken Unknown] guaifenesin 100 mg/5 mL oral liquid 10 ml PO Q4H PRN PRN Cough 03/05/19 [History Last Taken Unknown] magnesium hydroxide 400 mg/5 mL oral suspension 30 ml PO DAILY PRN PRN Constipation 03/05/19 [History Last Taken Unknown] Allergy/AdvReac Type Severity Reaction Status Date / Time No Known Allergies Allergy Verified 03/05/19 16:45 Social History Smoking Status: Unknown if ever smoked ROS ROS ED Review of Systems ROS Unobtainable: due to mental status EXAM Physical Exam Const Vital Signs: 04/23/22 18:00 04/23/22 17:59 04/23/22 18:53 Temperature 97.3 F L Temperature Source Temporal Pulse Rate 120 H 114 H Respiratory Rate 29 H 27 H Pulse Ox 90 91 Oxygen Delivery Method Room Air Nasal Cannula Oxygen Flow Rate (L/min) 6 Fraction of Inspired Oxygen (FIO2) 04/23/22 18:53 04/23/22 18:59 04/23/22 19:59 Temperature Temperature Source Pulse Rate 105 H Respiratory Rate 30 H 24 H 24 H Pulse Ox 94 Oxygen Delivery Method Oxygen Flow Rate (L/min) Fraction of Inspired Oxygen (FIO2) 50 Positive well nourished and well developed Constitutional Narrative: Patient in mild respiratory distress General Appearance ED: well developed HEENT Reports dry mucous membranes Mouth ED: Yes dry mucous membranes Mouth: dry mucous membranes Eyes PERRL and EOMs intact bilaterally Neck supple and no JVD Resp Resp Narrative: Tachypnea. Diminished breath sounds throughout. Wet gurgling upper respiratory noises appreciated. Cardio regular rhythm and no murmurs Rate: tachycardic GI non-tender and non-distended Narrative: On external genitalia exam patient does have 2 cm slightly indurated and ulcerated pressure wound to her mons pubis near the inguinal fold Extremity normal to inspection General Extremety ED: Negative for edema General Extremity: Negative for edema Neuro No oriented x3 Sensorium / Orientation: alert Motor Exam: general weakness Skin Skin Narrative: See exam, no other wounds appreciated MDM MDM MDM Narrative Medical decision making narrative: Patient is evaluated for acute hypoxia and respiratory distress. On my exam patient is quite tachypneic with increased work of breathing, hypoxia requiring supplemental oxygen and a lot of wet breath sounds. She is given a DuoNeb and placed on BiPAP for her work of breathing and significant hypoxia. ABG obtained which is consistent with hypoxia. Repeat evaluation after BiPAP and DuoNeb her work of breathing and breath sounds have improved significantly. Clinically she does not look to be fluid overloaded. I have a higher suspicion for infection etiology of her symptoms. A lactate is added on as patient does meet SIRS criteria. She does not have a leukocytosis. She started on broad-spectrum antibiotic, Rocephin and azithromycin. Her high sensitive troponin is normal at 8 and I do not think this is flash pulmonary edema. Chest x-ray obtained interpreted by myself as well as radiology. This does not show any acute process. Given the sudden onset of symptoms is possible she could have a pneumonia that is not showing up on radiologic findings at this time. She does not have any pleural effusions or significant vascular congestion at this time. Chart review from prior admission independently reviewed by myself does show she has a history of aspiration pneumonia/pneumonitis. As patient did have quite diminished breath sounds she is also covered with Solu-Medrol in case there is a component of reactive airway going on. Patient's care discussed with the patient's brother and niece. Extensively discussed goals of care and decision is made to keep her DNR CCA. They are not sure whether they want to proceed with intubation if needed or not and would like to be contacted to make a decision at that point. Patient is min to the PCU in guarded but improved condition. Case is discussed with admitting physician. Lab Data Attestation: I reviewed the patient's lab results. Labs: Laboratory Results - last 24 hr 04/23/22 04/23/22 04/23/22 18:38 18:38 18:38 WBC 9.1 RBC 4.91 Hgb 14.5 Hct 47.2 H MCV 96.1 MCH 29.5 MCHC 30.7 L RDW Std Deviation 49.1 H RDW Coeff of Rita 13.8 Plt Count 254 MPV 10.9 Immature Gran % (Auto) 0.200 Neut % (Auto) 69.1 Lymph % (Auto) 15.8 L Bay % (Auto) 10.2 H Eos % (Auto) 3.8 Baso % (Auto) 0.9 Absolute Neuts (auto) 6.3 Absolute Lymphs (auto) 1.44 Nucleated RBC % 0 Sodium 138 Potassium 4.7 Chloride 106 Carbon Dioxide 27.0 Anion Gap 5 BUN 26 H Creatinine 1.00 Estim Creat Clear Calc 35.88 Est GFR (MDRD) Af Amer 68 Est GFR (MDRD) Non-Af 57 L BUN/Creatinine Ratio 26.1 H Glucose 127 H Lactic Acid Calcium 9.2 Troponin I High Sens 8 B-Natriuretic Peptide 126.3 H 04/23/22 20:00 WBC RBC Hgb Hct MCV MCH MCHC RDW Std Deviation RDW Coeff of Rita Plt Count MPV Immature Gran % (Auto) Neut % (Auto) Lymph % (Auto) Bay % (Auto) Eos % (Auto) Baso % (Auto) Absolute Neuts (auto) Absolute Lymphs (auto) Nucleated RBC % Sodium Potassium Chloride Carbon Dioxide Anion Gap BUN Creatinine Estim Creat Clear Calc Est GFR (MDRD) Af Amer Est GFR (MDRD) Non-Af BUN/Creatinine Ratio Glucose Lactic Acid 1.6 Calcium Troponin I High Sens B-Natriuretic Peptide ABG Data ABG results: ABG 04/23/22 18:49 Specimen Type ART Sample Site R Radial pH 7.38 Bicarbonate Actual 26.2 H Total CO2 28 Base Excess 1 O2 Saturation 94 L ABG pCO2 43.9 ABG pO2 74 L Hilario Test Positive O2 Delivery Device Cannula Liter Flow 6.0 Radiography Chest X-Ray - ED: 1 View, Read by ED Physician, Read by Radiologist and No Acute Disease Diagnostic Testing: Clinical Impression(s) from Imaging Studies Chest X-Ray 04/23/22 19:00 IMPRESSION: There are no acute findings. Electronically Signed: Zachary Palma MD at 19:33 EST Reading Location ID and State: [facility] / [place] , Service support , Rhythm Strip Rhythm Strip: Sinus Tach Rate: 109 Ectopy: None EKG Initial EKG: Attestation: I personally reviewed and interpreted this EKG as follows: Interpretation: Sinus Tachycardia Comments: Sinus tachycardia with fusion complexes a rate of 109 Normal axis Normal intervals Normal ST segments compared to prior EKG on 01/04/2019 patient is now tachycardic Prior EKG tracings: available for review Prior: Changed Critical Care Time Critical Care Time: Yes Critical care time (excluding procedures): 30-74 minutes (39), Including time spent:, Discussing w/Patient &/or Family/Rn Wound Care, Arranging Admission or Transfer and Performing Direct Patient Care at Bedside Discharge Plan Dx/Rx/DC Orders Clinical Impression: Acute hypoxemic respiratory failure, Dementia, Reactive airway disease, Unspecified bacterial pneumonia Disposition Disposition: Acute Care Hospital [facility] Discharge Date/Time: 04/23/22 22:24
--- NOTE | 2022-04-23 20:13 | PCM.HP.STD ---
HPI - General General Date of Admission: 04/23/22 Date of Service: 04/23/22 Chief Complaint: Shortness of breath HPI Narrative BRETT CISNEROS, is a 81 F with a significant history of dementia who lives at the memory unit of [facility] presents emergency department with shortness of breath. Associated with her symptom is gurgling. Reportedly when EMS arrived to the long-term to pick patient her oxygen saturation was 78% on room air. She was placed on 6 L nasal oxygen and her oxygen saturation improved to 92%. At the emergency department PO2 showed oxygen saturation of 74.1 on 6L. Patient was placed on BiPAP. History was taken for emergency department doctor; and patient's family (niece and brother over the phone) as patient is baseline confused and cannot provide history. [facility] Medical History Dementia Dysphagia Hypothyroid Osteoporosis Home Medications alendronate 35 mg tablet 35 mg PO FR bones 01/04/19 [History Last Taken 12/30/18] atorvastatin 40 mg tablet 20 mg PO DAILY cholesterol 01/04/19 [History Last Taken 01/04/19] acetaminophen 325 mg tablet 650 mg PO Q6H PRN PRN Mild Pain (1-3)/Temp > 100.7 F 01/08/19 [Rx Last Taken Unknown] bisacodyl 10 mg rectal suppository 10 mg VA DAILY PRN Constipation 03/05/19 [History Last Taken Unknown] magnesium hydroxide 400 mg/5 mL oral suspension 30 ml PO Q4H PRN PRN Constipation 03/05/19 [History Last Taken Unknown] albuterol sulfate 90 mcg/actuation aerosol inhaler 2 puff inhalation Q4H PRN PRN SOB/wheezing 04/24/22 [History Last Taken Unknown] allopurinol 200 mg tablet 200 mg PO QHS gout 04/24/22 [History Last Taken Unknown] budesonide-formoterol HFA 160 mcg-4.5 mcg/actuation aerosol inhaler (Symbicort) 1 puff inhalation BID acute bronchitis 04/24/22 [History Last Taken Unknown] donepezil 10 mg tablet (Aricept) 10 mg PO QHS dementia 04/24/22 [History Last Taken Unknown] levothyroxine 75 mcg tablet 75 mcg PO DAILY thyroid 04/24/22 [History Last Taken Unknown] loratadine 10 mg tablet 10 mg PO DAILY allergies 04/24/22 [History Last Taken Unknown] nystatin 100,000 unit/gram topical powder 1 applic TOPICAL BID groin excoriation 04/24/22 [History Last Taken Unknown] tiotropium bromide 2.5 mcg/actuation mist for inhalation (Spiriva Respimat) 2 puff inhalation DAILY congestion 04/24/22 [History Last Taken Unknown] trazodone 50 mg tablet 50 mg PO QHS insomnia 04/24/22 [History Last Taken Unknown] Allergy/AdvReac Type Severity Reaction Status Date / Time No Known Allergies Allergy Verified 03/05/19 16:45 Social History Smoking Status: Unknown if ever smoked ROS Review of Systems ROS Unobtainable: other Details: Pertinent positives and pertinent negatives that could be provided by patient's family and ED doctor is as noted in HPI. All other systems were reviewed patient's family did not know or they were negative. Vital Signs Vital Signs Vital Signs: 04/23/22 18:00 04/23/22 17:59 04/23/22 18:53 Temperature 97.3 F L Temperature Source Temporal Pulse Rate 120 H 114 H Respiratory Rate 29 H 27 H Pulse Ox 90 91 Oxygen Delivery Method Room Air Nasal Cannula Oxygen Flow Rate (L/min) 6 Fraction of Inspired Oxygen (FIO2) 04/23/22 18:53 Temperature Temperature Source Pulse Rate 105 H Respiratory Rate 30 H Pulse Ox 94 Oxygen Delivery Method Oxygen Flow Rate (L/min) Fraction of Inspired Oxygen (FIO2) 50 Weight Weight: 61 kg Body Mass Index (BMI) 23.8 Physical Exam Narrative Physical exam: General: Well-nourished, well-developed. Head: Normocephalic, atraumatic, no tenderness Eyes: Vision is grossly intact. EOMI ENT, no trauma, moist mucous membranes, no rhinorrhea Neck: Nontender, No thyromegaly. CVS: Regular rate and rhythm. S1-S2 present. No murmur, gallop or rub. Respiratory : Mild scattered rales; chest wall nontender, no wheezing Abdomen: Soft, nontender, nondistended, normal bowel sounds, no masses : Excoriations in inguinal fold. Ulceration on the left side of mons pubis. Back: Nontender, no CVA tenderness, no midline spinal tenderness, deformities, step-offs Extremities: Nontender full range of motion, no trauma Skin: Normal color, no trauma, abrasions Neuro: Alert.confused. Follow commands to squeeze hands. Psychiatry: Normal mood. Normal affect. Not depressed. Not anxious. Results Lab / Micro Data Result Diagrams: 04/23/22 18:38 04/23/22 18:38 Labs: Laboratory Results - last 24 hr 04/23/22 18:38: WBC 9.1, RBC 4.91, Hgb 14.5, Hct 47.2 H, MCV 96.1, MCH 29.5, MCHC 30.7 L, RDW Std Deviation 49.1 H, RDW Coeff of Rita 13.8, Plt Count 254, MPV 10.9, Immature Gran % (Auto) 0.200, Neut % (Auto) 69.1, Lymph % (Auto) 15.8 L, [place] % (Auto) 10.2 H, Eos % (Auto) 3.8, Baso % (Auto) 0.9, Absolute Neuts (auto) 6.3, Absolute Lymphs (auto) 1.44, Nucleated RBC % 0 04/23/22 18:38: Sodium 138, Potassium 4.7, Chloride 106, Carbon Dioxide 27.0, Anion Gap 5, BUN 26 H, Creatinine 1.00, Estim Creat Clear Calc 35.88, Est GFR (MDRD) Af Amer 68, Est GFR (MDRD) Non-Af 57 L, BUN/Creatinine Ratio 26.1 H, Glucose 127 H, Calcium 9.2, Troponin I High Sens 8 04/23/22 18:38: B-Natriuretic Peptide 126.3 H Micro: Microbiology 04/23/22 18:37 Nasal Secretion SARS-CoV-2 & FLU Antigen (Rapid) - Final ABG Data ABG results: ABG 04/23/22 18:49 Specimen Type ART Sample Site R Radial pH 7.38 Bicarbonate Actual 26.2 H Total CO2 28 Base Excess 1 O2 Saturation 94 L ABG pCO2 43.9 ABG pO2 74 L Hilario Test Positive O2 Delivery Device Cannula Liter Flow 6.0 Radiology Impression Chest X-Ray 04/23/22 19:00 IMPRESSION: There are no acute findings. Electronically Signed: Zachary Palma MD at 19:33 EST , Assessment & Plan Assessment/Plan (1) Acute hypoxemic respiratory failure: PLAN: Plan Acute hypoxic respiratory failure Etiology unclear. CBC showed normal white count of 9.1, trend. No bandemia. Chest x-ray was visualized and independently interpreted. I agree with the interpretation of no acute findings. Because of patient history of dementia and reported gurgling will start patient on Unasyn. Also azithromycin ordered. Scheduled DuoNeb and as needed albuterol ordered. Solu-Medrol [id number] ordered. SARS-CoV-2 and rapid flu antigen negative. We will get comprehensive respiratory pathogen panel. Strep pneumoniae and Legionella antigen ordered. We will check echocardiogram. Of note BNP is not remarkable. Intertrigo and ulcerated lesion on mon pubis Nystatin ordered. Wound care consult CKD stage II Stable DVT prophylaxis: Subcutaneous Lovenox ordered Charges/Coding Visit Charges Inpatient E&M: 52108 Init Hosp L3
[2022-04-23] MEDS: Menthol/Lanolin/Calamine/Znox 113 GM Tube 1 APPLIC TOPICAL (21:01)
[2022-04-23] MEDS: Ceftriaxone 1 GM/50 ML BAG IV (21:02)
[2022-04-23] MEDS: 0.9% Normal Saline 1,000 ML 150 ML IV (21:02)
[2022-04-23] MEDS: MethylPREDNISolone 125 MG/2 ML Vial IV (21:02)
[2022-04-23 21:07] LABS: Lactic Acid 1.6 mmol/L (0.4-1.9)
--- NOTE | 2022-04-23 22:38 | ECHOCS_ITS ---
Reason For Study: SOB Procedure This was a 2D Doppler, Color Flow transthoracic echocardiogram. The study was technically difficult. Patient unable to hold still or stay in position. Contrast injection was performed. Exam performed portable in patient room. Left Ventricle Normal LV size. Left ventricular systolic function is normal. The estimated ejection fraction is 65 %. Stage 1 diastolic dysfunction. No regional wall motion abnormalities noted. Right Ventricle Normal RV size. Normal systolic function. Atria Normal left atrium. Normal right atrium. Mitral Valve There is moderate mitral annular calcification. Mild (1+) eccentric mitral valve insufficiency. Tricuspid Valve Normal tricuspid valve. Aortic Valve The aortic valve is not well visualized. Pulmonic Valve The pulmonic valve is not well visualized. Great Vessels Normal aortic root. The pulmonary artery is normal size. Normal inferior vena cava. Pericardium/Pleural No pericardial effusion. Medication Diluted definity 1ml given slow IV push to enhance endocardial definition. MMode/2D Measurements & Calculations LVIDd: 3.6 cm IVSd: 0.91 cm LA dimension: 3.7 cm LVIDs: 2.3 cm LVPWd: 0.93 cm FS: 35.0 % LAV(MOD-sp4): 39.6 ml LA A4 area: 16.6 cm2 Time Measurements MV dec time: 0.27 sec Doppler Measurements & Calculations MV E max steven: 105.5 cm/sec Lat Peak E' Steven: 8.5 cm/sec Med Peak E' Steven: 6.2 cm/sec MV A max steven: 170.0 cm/sec E/E' lat: 12.3 E/E' med: 17.1 MV E/A: 0.62 MV V2 max: 212.2 cm/sec MV P1/2t max steven: 124.5 cm/sec Ao V2 max: 150.0 cm/sec MV max P.0 mmHg MV P1/2t: 112.6 msec Ao max P.0 mmHg MV V2 mean: 102.9 cm/sec MV dec slope: 323.8 cm/sec2 MV mean P.1 mmHg MV V2 VTI: 46.7 cm MVA(P1/2t): 2.0 cm2 LV V1 max: 105.1 cm/sec PA V2 max: 84.2 cm/sec LV V1 max P.4 mmHg ECHO/Echo Complete W/ Contrast Interpretation Summary Normal LV size. Left ventricular systolic function is normal. The estimated ejection fraction is 65 %. Stage 1 diastolic dysfunction. There is moderate mitral annular calcification. Mild (1+) eccentric mitral valve insufficiency. Contrast injection was performed. Ordering Physician: Robert De Guzman Performed By: Blayne Carlton RCS
--- NOTE | 2022-04-23 23:02 | NURSING ---
unable to complete admission questions d/t pt confusion and minimal speech. Morro ESCOBEDO
[2022-04-24] VITALS (11 sets, daily range): BP systolic 82–158; BP diastolic 55–127; PULSE 59–115; RESP 12–34; TEMP 36.4–37; O2SAT 91–96
[2022-04-24] MEDS: 0.9% Saline Lock 10 ML Syringe IV ×2 (00:31→22:15)
[2022-04-24] MEDS: Nystatin Powder 15gm Bottle 1 APPLIC TOPICAL ×4 (00:35→22:34)
[2022-04-24 05:02] LABS: Anion Gap 8 (5-15); BUN 21 mg/dL (7-18); BUN/Creat Ratio 26.9 RATIO (10-20); Calcium,Total 8.3 mg/dL (8.5-10.1); Chloride 105 mmol/L (98-107); Creatinine, Serum 0.78 mg/dL (0.55-1.02); EST Glomerular Filtration Rate 75 mL/min (>60); Est Glom Filt Rate - Afr Amer 91 mL/min (>60); Estimated Creatinine Clearance 33.71 ml/min; Glucose 164 mg/dL (74-106); Potassium 4.5 mmol/L (3.5-5.1); Sodium Level 140 mmol/L (136-145)
[2022-04-24 05:54] LABS: Absolute Neutrophil Count 8.6 X10^3/uL (2.0-7.7); Basophil# 0.04 X10^3/uL; Basophil% 0.4 % (0-1); Eosinophil# 0.01 X10^3/uL; Eosinophils% 0.1 % (0-5); Hematocrit 42.1 % (37-47); Hemoglobin 13.3 g/dL (12.0-15.0); Lymphocyte % 6.3 % (19-41); Mean Corp Hgb Conc 31.6 g/dL (32-36); Mean Corpuscular Hgb 30.1 pg (27.0-32.0); Mean Corpuscular Volume 95.2 fL (81-99); Mean Platelet Vol. 10.7 fl (6.2-12.0); Monocyte# 0.24 X10^3/uL; Monocyte% 2.5 % (0-10); NRBC Flagged by Analyzer 0 % (0-5); Neutrophil # 8.64 X10^3/uL (2.7-7.7); Neutrophil % 90.5 % (47-70); POSITIVE DIFFERENTIAL YES; Platelet Count 226 K/mm3 (150-450); RBC Distribution Width CV 13.6 % (11.6-14.6); RBC Distribution Width SD 47.9 fl (35.1-43.9); Red Blood Count 4.42 M/mm3 (4.2-5.4); White Blood Count 9.6 K/mm3 (4.4-11.0)
[2022-04-24 05:58] LABS: Differential Indicated SCAN CRITERIA MET
[2022-04-24 06:15] LABS: Differential Comment SCANNED
[2022-04-24] MEDS: Ipratropium/Albuterol Sulfate 3 ML AMPUL.NEB INHALATION ×3 (06:43→20:55)
--- NOTE | 2022-04-24 09:33 | CASEMGMT ---
Addendum entered by Shiloh Patel 04/24/22 10:20: JAVI spoke with patient's brother, Lenard and the plan is for patient to return to [facility] at d/c. Plan: d/c to [facility] under intermediate level of care. Physicians will transport. 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 SW sent updates to [facility]. JAVI will check with patient/family to make sure their plan is for patient to return to [facility]. Shiloh MARTINEZ
[2022-04-24] MEDS: Enoxaparin 40 MG/0.4 ML Syringe SC (10:19)
[2022-04-24] MEDS: Loratadine 10 MG Tablet PO (10:34)
[2022-04-24] MEDS: Levothyroxine 75 MCG Tablet PO (10:34)
--- NOTE | 2022-04-24 10:45 | PCM.PN.HOSP ---
Subjective Subjective Does not respond to questions very well, has severe dementia Objective Data Objective Data Vital Signs: Vital Signs Temp Pulse Resp BP Pulse Ox O2 Del Method O2 Flow Rate 98.0 F 59 L 18 82/55 L 95 Nasal Cannula 6 04/24/22 10:15 04/24/22 10:15 04/24/22 10:15 04/24/22 10:15 04/24/22 10:15 04/24/22 10:15 04/24/22 10:15 FiO2 35 04/24/22 05:29 Oxygen Flow Rate (L/min) 6 Oxygen Delivery Method Nasal Cannula Weight: 127 lb 6.835 oz Body Mass Index (BMI) 22.6 Intake & Output: Intake and Output for Last 24 Hours 04/23/22 04/24/22 04/25/22 03:59 03:59 03:59 Intake Total 934.5 / 934.5 112 / 112 Output Total 245 / 245 Balance 934.5 / 934.5 -133 / -133 Lab / Micro Data Result Diagrams: 04/24/22 05:30 04/24/22 03:42 Labs: Laboratory Results - last 24 hr 04/23/22 18:38: WBC 9.1, RBC 4.91, Hgb 14.5, Hct 47.2 H, MCV 96.1, MCH 29.5, MCHC 30.7 L, RDW Std Deviation 49.1 H, RDW Coeff of Rita 13.8, Plt Count 254, MPV 10.9, Immature Gran % (Auto) 0.200, Neut % (Auto) 69.1, Lymph % (Auto) 15.8 L, [place] % (Auto) 10.2 H, Eos % (Auto) 3.8, Baso % (Auto) 0.9, Absolute Neuts (auto) 6.3, Absolute Lymphs (auto) 1.44, Nucleated RBC % 0 04/23/22 18:38: Sodium 138, Potassium 4.7, Chloride 106, Carbon Dioxide 27.0, Anion Gap 5, BUN 26 H, Creatinine 1.00, Estim Creat Clear Calc 35.88, Est GFR (MDRD) Af Amer 68, Est GFR (MDRD) Non-Af 57 L, BUN/Creatinine Ratio 26.1 H, Glucose 127 H, Calcium 9.2, Troponin I High Sens 8 04/23/22 18:38: B-Natriuretic Peptide 126.3 H 04/23/22 20:00: Lactic Acid 1.6 04/24/22 03:42: Sodium 140, Potassium 4.5, Chloride 105, Carbon Dioxide 27.0, Anion Gap 8, BUN 21 H, Creatinine 0.78, Estim Creat Clear Calc 33.71, Est GFR (MDRD) Af Amer 91, Est GFR (MDRD) Non-Af 75, BUN/Creatinine Ratio 26.9 H, Glucose 164 H, Calcium 8.3 L 04/24/22 05:30: WBC 9.6, RBC 4.42, Hgb 13.3, Hct 42.1, MCV 95.2, MCH 30.1, MCHC 31.6 L, RDW Std Deviation 47.9 H, RDW Coeff of Rita 13.6, Plt Count 226, MPV 10.7, Immature Gran % (Auto) 0.200, Neut % (Auto) 90.5 H, Lymph % (Auto) 6.3 L, [place] % (Auto) 2.5, Eos % (Auto) 0.1, Baso % (Auto) 0.4, Absolute Neuts (auto) 8.6 H, Absolute Lymphs (auto) 0.60 L, Nucleated RBC % 0, Differential Comment SCANNED Micro: Microbiology 04/24/22 03:10 Urine Catheter - Catheter Legionella Antigen - Final 04/24/22 03:10 Urine Catheter - Catheter Streptococcus pneumoniae Antigen (M - Final 04/23/22 23:42 Mucosa - Nasopharyngeal Respiratory Panel (PCR) - Final 04/23/22 18:37 Nasal Secretion SARS-CoV-2 & FLU Antigen (Rapid) - Final ABG Data ABG results: ABG 04/23/22 18:49 Specimen Type ART Sample Site R Radial pH 7.38 Bicarbonate Actual 26.2 H Total CO2 28 Base Excess 1 O2 Saturation 94 L ABG pCO2 43.9 ABG pO2 74 L Hilario Test Positive O2 Delivery Device Cannula Liter Flow 6.0 Radiography Diagnostic Testing: Radiology Impression Chest X-Ray 04/23/22 19:00 IMPRESSION: There are no acute findings. Electronically Signed: Zachary Palma MD at 19:33 EST , Rhythm Strip Rhythm Strip: Sinus Tach Rate: 109 Ectopy: None Physical Exam Narrative General: Alert, confused and disoriented no apparent distress HEENT: Atraumatic, PERRLA, EOMI, Normocephalic Oral: Moist Mucosa Neck: Supple, No JVD Lungs: Diminished, Normal air movement, No rhonchi, No wheeze, No rales Cardiovascular: Regular rate, Regular Rhythm, Normal S1, Normal S2, No murmurs Abdomen: Soft, Non Tender, Non-Distended, No Hepato-splenomegaly Extremities: No edema, Capillary Refill Less than 3 Seconds Skin: No rashes, No breakdown Musculoskeletal: No Tenderness to Palpation of Joints or Extremities Neurological: Moves all of her extremities, unable to cooperate with an extensive exam Psych/Mental Status: Normal Affect, Appropriate Assessment & Plan Assessment/Plan (1) Acute hypoxemic respiratory failure: PLAN: Plan 1. Acute hypoxic respiratory failure history of COPD ? Unsure as to the etiology at the moment, chest x-ray is unremarkable she does have a history of aspiration ? Continue with Unasyn and there is a throw ? Continue with breathing treatments ? COVID test and flu antigens were negative ? She is on Symbicort and Spiriva as an outpatient continue with steroids ?Echo is pending as well 2. Osteoporosis ? Stable ? Continue with alendronate 3. Hyperlipidemia ? Stable ? Continue with Lipitor 4. Hypothyroidism ? Stable ? Continue with Synthroid 5. Dementia ? Severe but stable ? Can you with her Aricept DVT: Lovenox Charges/Coding Visit Charges Inpatient E&M: 42593 Subs Hosp L2
--- NOTE | 2022-04-24 12:41 | CASEMGMT ---
Social Work SW reviewed chart, no POA/LW on file. 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 SW called pt's brother Lenard, he also does not have LW/POA papers for pt. ESTEFANI Washburn
--- NOTE | 2022-04-24 13:44 | WOUNDNOTE ---
Was asked to see patient for wound to the mons pubis per hospitalist. in to assess. there is a small discolored hardened area to the left groin. no open areas. no drainage noted. area is slightly firm and tender. will monitor for now. no erythema noted.
[2022-04-24] MEDS: Ensure Plus High Protein 120 ML LIQUID PO (14:46)
[2022-04-24] MEDS: Albuterol 2.5 MG/3 ML VIAL.NEB. INHALATION (15:28)
[2022-04-24] MEDS: Atorvastatin Calcium 20 MG Tablet PO (22:14)
[2022-04-24] MEDS: Allopurinol 100 MG Tablet 200 MG PO (22:14)
[2022-04-24] MEDS: traZODone 50 MG Tablet PO (22:14)
[2022-04-24] MEDS: Donepezil HCl 10 MG Tablet PO (22:14)
[2022-04-25] VITALS (14 sets, daily range): BP systolic 98–109; BP diastolic 41–57; PULSE 54–89; RESP 12–20; TEMP 36.3–36.9; O2SAT 93–96
[2022-04-25] MEDS: Nystatin Powder 15gm Bottle 1 APPLIC TOPICAL ×3 (05:08→21:54)
[2022-04-25] MEDS: Levothyroxine 75 MCG Tablet PO (06:44)
[2022-04-25 07:00] LABS: Absolute Lymphocyte Count 0.65 X10^3/uL (0.83-4.51); Absolute Neutrophil Count 7.2 X10^3/uL (2.0-7.7); Hematocrit 39.1 % (37-47); Hemoglobin 12.1 g/dL (12.0-15.0); Lymphocyte # 0.65 X10^3/ul (0.83-4.51); Lymphocyte % 7.7 % (19-41); Mean Corp Hgb Conc 30.9 g/dL (32-36); Mean Corpuscular Hgb 29.6 pg (27.0-32.0); Mean Corpuscular Volume 95.6 fL (81-99); Mean Platelet Vol. 10.8 fl (6.2-12.0); Monocyte# 0.59 X10^3/uL; NRBC Flagged by Analyzer 0 % (0-5); Neutrophil % 85.1 % (47-70); Platelet Count 222 K/mm3 (150-450); RBC Distribution Width SD 49.6 fl (35.1-43.9); Red Blood Count 4.09 M/mm3 (4.2-5.4); White Blood Count 8.5 K/mm3 (4.4-11.0)
[2022-04-25] MEDS: Ipratropium/Albuterol Sulfate 3 ML AMPUL.NEB INHALATION ×4 (07:19→19:17)
[2022-04-25 07:30] LABS: Anion Gap 7 (5-15); BUN 23 mg/dL (7-18); BUN/Creat Ratio 24.4 RATIO (10-20); Calcium,Total 8.5 mg/dL (8.5-10.1); Chloride 107 mmol/L (98-107); Creatinine, Serum 0.94 mg/dL (0.55-1.02); EST Glomerular Filtration Rate 60 mL/min (>60); Est Glom Filt Rate - Afr Amer 73 mL/min (>60); Estimated Creatinine Clearance 35.87 ml/min; Glucose 158 mg/dL (74-106); Potassium 3.6 mmol/L (3.5-5.1); Sodium Level 141 mmol/L (136-145)
[2022-04-25] MEDS: Enoxaparin 40 MG/0.4 ML Syringe SC (09:15)
[2022-04-25] MEDS: Ensure Plus High Protein 120 ML LIQUID PO ×3 (09:15→22:09)
[2022-04-25] MEDS: Loratadine 10 MG Tablet PO (09:15)
--- NOTE | 2022-04-25 10:41 | PCM.PN.HOSP ---
Subjective Subjective Doing well, no issues overnight. She is down to 3 L nasal cannula Objective Data Objective Data Vital Signs: Vital Signs Temp Pulse Resp BP Pulse Ox O2 Del Method O2 Flow Rate 97.8 F 73 18 103/57 L 94 Nasal Cannula 3 04/25/22 09:19 04/25/22 09:19 04/25/22 09:19 04/25/22 09:19 04/25/22 09:19 04/25/22 09:19 04/25/22 09:19 FiO2 35 04/25/22 07:44 Oxygen Flow Rate (L/min) 3 Oxygen Delivery Method Nasal Cannula Weight: 128 lb 4.944 oz Body Mass Index (BMI) 22.6 Intake & Output: Intake and Output for Last 24 Hours 04/24/22 04/25/22 04/26/22 03:59 03:59 03:59 Intake Total 934.5 / 934.5 703 / 703 579.75 / 579.75 Output Total 695 / 695 100 / 100 Balance 934.5 / 934.5 8 / 8 479.75 / 479.75 Lab / Micro Data Result Diagrams: 04/25/22 06:00 04/25/22 06:00 Labs: Laboratory Results - last 24 hr 04/25/22 06:00: WBC 8.5, RBC 4.09 L, Hgb 12.1, Hct 39.1, MCV 95.6, MCH 29.6, MCHC 30.9 L, RDW Std Deviation 49.6 H, RDW Coeff of Rita 14.0, Plt Count 222, MPV 10.8, Immature Gran % (Auto) 0.200, Neut % (Auto) 85.1 H, Lymph % (Auto) 7.7 L, [place] % (Auto) 7.0, Eos % (Auto) 0.0, Baso % (Auto) 0.0, Absolute Neuts (auto) 7.2, Absolute Lymphs (auto) 0.65 L, Nucleated RBC % 0 04/25/22 06:00: Sodium 141, Potassium 3.6, Chloride 107, Carbon Dioxide 27.0, Anion Gap 7, BUN 23 H, Creatinine 0.94, Estim Creat Clear Calc 35.87, Est GFR (MDRD) Af Amer 73, Est GFR (MDRD) Non-Af 60, BUN/Creatinine Ratio 24.4 H, Glucose 158 H, Calcium 8.5 Micro: Microbiology 04/24/22 03:10 Urine Catheter - Catheter Legionella Antigen - Final 04/24/22 03:10 Urine Catheter - Catheter Streptococcus pneumoniae Antigen (M - Final 04/23/22 23:42 Mucosa - Nasopharyngeal Respiratory Panel (PCR) - Final 04/23/22 18:37 Nasal Secretion SARS-CoV-2 & FLU Antigen (Rapid) - Final Radiography Diagnostic Testing: Radiology Impression Echocardiogram 04/23/22 22:38 Interpretation Summary Normal LV size. Left ventricular systolic function is normal. The estimated ejection fraction is 65 %. Stage 1 diastolic dysfunction. There is moderate mitral annular calcification. Mild (1+) eccentric mitral valve insufficiency. Contrast injection was performed. Ordering Physician: Robert De Guzman Performed By: Blayne Carlton RCS Rhythm Strip Rhythm Strip: Sinus Tach Rate: 109 Ectopy: None Physical Exam Narrative General: Alert, pleasantly confused and disoriented no apparent distress HEENT: Atraumatic, PERRLA, EOMI, Normocephalic Oral: Moist Mucosa Neck: Supple, No JVD Lungs: Diminished, Normal air movement, No rhonchi, No wheeze, No rales Cardiovascular: Regular rate, Regular Rhythm, Normal S1, Normal S2, No murmurs Abdomen: Soft, Non Tender, Non-Distended, No Hepato-splenomegaly Extremities: No edema, Capillary Refill Less than 3 Seconds Skin: No rashes, No breakdown Musculoskeletal: No Tenderness to Palpation of Joints or Extremities Neurological: Moves all of her extremities, unable to cooperate with an extensive exam Psych/Mental Status: Normal Affect, Appropriate Assessment & Plan Assessment/Plan (1) Acute hypoxemic respiratory failure: PLAN: Plan 1. Acute hypoxic respiratory failure history of COPD ? Unsure as to the etiology at the moment, chest x-ray is unremarkable she does have a history of aspiration ? Continue with Unasyn and there is a throw ? Continue with breathing treatments and steroids ? COVID test and flu antigens were negative ? She is on Symbicort and Spiriva as an outpatient ? Echo with a normal EF and a stage I diastolic dysfunction 2. Osteoporosis ? Stable ? Continue with alendronate 3. Hyperlipidemia ? Stable ? Continue with Lipitor 4. Hypothyroidism ? Stable ? Continue with Synthroid 5. Dementia ? Severe but stable ? Can you with her Aricept DVT: Lovenox Charges/Coding Visit Charges Inpatient E&M: 11167 Subs Hosp L2
[2022-04-25] MEDS: Donepezil HCl 10 MG Tablet PO (21:59)
[2022-04-25] MEDS: traZODone 50 MG Tablet PO (21:59)
[2022-04-25] MEDS: Atorvastatin Calcium 20 MG Tablet PO (21:59)
[2022-04-25] MEDS: Allopurinol 100 MG Tablet 200 MG PO (21:59)
[2022-04-25] MEDS: 0.9% Saline Lock 10 ML Syringe IV (22:18)
[2022-04-26] VITALS (9 sets, daily range): BP systolic 110–135; BP diastolic 48–86; PULSE 61–71; RESP 12–20; TEMP 36.6; O2SAT 88–96
[2022-04-26] MEDS: Nystatin Powder 15gm Bottle 1 APPLIC TOPICAL ×2 (05:20→13:09)
[2022-04-26] MEDS: Levothyroxine 75 MCG Tablet PO (05:20)
[2022-04-26] MEDS: 0.9% Saline Lock 10 ML Syringe IV (05:26)
[2022-04-26] MEDS: Ipratropium/Albuterol Sulfate 3 ML AMPUL.NEB INHALATION ×3 (07:28→15:18)
[2022-04-26] MEDS: Enoxaparin 40 MG/0.4 ML Syringe SC (08:23)
[2022-04-26] MEDS: Ensure Plus High Protein 120 ML LIQUID PO ×2 (08:23→13:09)
[2022-04-26] MEDS: Loratadine 10 MG Tablet PO (08:23)
--- NOTE | 2022-04-26 10:20 | PCM.TXEXTCAR ---
Diet Diet Order/Speech Therapy: 04/24/22 10:53 Diet: Regular - General Food consistency:: Pureed Liquid Consistency:: Regular/Thin Is pt able to select menu?: No Diet Comments: TOTAL FEED - liquids by tsp only, meds whole in , crush larger meds in Routine Orders/Code Status Code Status: DNRCC-A Wound(s) bilateral groin: Wound Type: open/excoriated area coccyx: Wound Type: Pressure Injury L buttock: Wound Type: Pressure Injury R inner buttock: Wound Type: Pressure Injury Therapies Physical Therapy: Eval and Treat Occupational Therapy: Eval and Treat Problem/Diagnosis (1) Acute hypoxemic respiratory failure: Status: Acute Code(s): J96.01 - Acute respiratory failure with hypoxia Plan 1. Acute hypoxic respiratory failure history of COPD ? Unsure as to the etiology at the moment, chest x-ray is unremarkable she does have a history of aspiration ? Continue with Unasyn and there is a throw ? Continue with breathing treatments and steroids ? COVID test and flu antigens were negative ? She is on Symbicort and Spiriva as an outpatient ? Echo with a normal EF and a stage I diastolic dysfunction 2. Osteoporosis ? Stable ? Continue with alendronate 3. Hyperlipidemia ? Stable ? Continue with Lipitor 4. Hypothyroidism ? Stable ? Continue with Synthroid 5. Dementia ? Severe but stable ? Can you with her Aricept DVT: Lovenox Allergies/Procedures Done in Hospital Allergies No Known Allergies Allergy (Verified 03/05/19 16:45) Procedures: 2-D Echocardiogram Type of Care/Length of Stay Estimated LOS: More Than 30 Days Type of Care Needed: Intermediate Rehab Potential: Fair Prognosis: Fair Additional Orders/Day of Discharge Day of Discharge: 04/26/22 Dietary and Speech Recommendations Dietitian Recommendations/Changes: regular diet- texture/consistency per [employer]; will add 120mL ensure plus high protein 4x/day w/ medpass for additional calories/protein if consumed. Discharge Plan Admission Admit Date/Time: 04/23/22 20:01 Attending Provider: Duane Thomas Primary Care Provider: Janie Barr Consulting Providers: Robert De Guzman Discharge Orders/Prescriptions Prescriptions: New amoxicillin-pot clavulanate 875-125 mg tablet 1 tab PO Q12H Qty: 14 0RF prednisone 20 mg tablet 40 mg PO DAILY Qty: 14 0RF Continued atorvastatin 40 MG tablet 20 mg PO DAILY alendronate 35 MG tablet 35 mg PO FR acetaminophen 325 MG tablet 650 mg PO Q6H PRN PRN (Reason: Mild Pain (1-3)/Temp > 100.7 F) 0RF magnesium hydroxide 30 ML suspension 30 ml PO Q4H PRN PRN (Reason: Constipation) bisacodyl 10 MG suppository 10 mg VA DAILY PRN (Reason: Constipation) trazodone 50 mg Tablet 50 mg PO QHS donepezil [Aricept] 10 mg Tablet 10 mg PO QHS levothyroxine 75 mcg Tablet 75 mcg PO DAILY albuterol sulfate 90 mcg/actuation Hfa Aerosol Inhaler 2 puff INHALATION Q4H PRN PRN (Reason: SOB/wheezing) loratadine 10 mg Tablet 10 mg PO DAILY budesonide-formoterol [Symbicort] 160-4.5 mcg/actuation Hfa Aerosol Inhaler 1 puff INHALATION BID Spiriva Respimat 2.5 mcg/actuation Mist 2 puff INHALATION DAILY allopurinol 200 mg Tablet 200 mg PO QHS nystatin 1 APPLIC powder 1 applic TOPICAL BID Protocol: *Topical Application Instructions APPLICATION INSTRUCTIONS: apply to abdominal folds Referrals / Follow Up: Janie Barr MD [Primary Care Provider] - Disposition Disposition (needs filled in before D/C Order can be placed): [facility]
--- NOTE | 2022-04-26 10:26 | DS.PCM_ITS ---
Providers Date of Admission: 04/23/22 Primary Care Physician: Dr. Janie Barr MD Consultations 04/23/22 22:38 Consult: Onc/Wound/spot cleaner Routine Comment: Reason for Consult:: Mom pubis wound and intertrigo of groin Reason For Visit: ACUTE HYPOXEMIC RESPIRATORY FAILURE Diagnosis Discharge Diagnosis (1) Acute hypoxemic respiratory failure: Status: Acute Code(s): J96.01 - Acute respiratory failure with hypoxia Plan 1. Acute hypoxic respiratory failure history of COPD ? Unsure as to the etiology at the moment, chest x-ray is unremarkable she does have a history of aspiration ? Continue with Unasyn and there is a throw ? Continue with breathing treatments and steroids ? COVID test and flu antigens were negative ? She is on Symbicort and Spiriva as an outpatient ? Echo with a normal EF and a stage I diastolic dysfunction 2. Osteoporosis ? Stable ? Continue with alendronate 3. Hyperlipidemia ? Stable ? Continue with Lipitor 4. Hypothyroidism ? Stable ? Continue with Synthroid 5. Dementia ? Severe but stable ? Can you with her Aricept DVT: Lovenox Medications at Discharge Home Medications alendronate 35 mg tablet 35 mg PO FR bones 01/04/19 atorvastatin 40 mg tablet 20 mg PO DAILY cholesterol 01/04/19 acetaminophen 325 mg tablet 650 mg PO Q6H PRN PRN Mild Pain (1-3)/Temp > 100.7 F 01/08/19 bisacodyl 10 mg rectal suppository 10 mg NJ DAILY PRN Constipation 03/05/19 magnesium hydroxide 400 mg/5 mL oral suspension 30 ml PO Q4H PRN PRN Constipation 03/05/19 albuterol sulfate 90 mcg/actuation aerosol inhaler 2 puff inhalation Q4H PRN PRN SOB/wheezing 04/24/22 allopurinol 200 mg tablet 200 mg PO QHS gout 04/24/22 budesonide-formoterol HFA 160 mcg-4.5 mcg/actuation aerosol inhaler (Symbicort) 1 puff inhalation BID acute bronchitis 04/24/22 donepezil 10 mg tablet (Aricept) 10 mg PO QHS dementia 04/24/22 levothyroxine 75 mcg tablet 75 mcg PO DAILY thyroid 04/24/22 loratadine 10 mg tablet 10 mg PO DAILY allergies 04/24/22 nystatin 100,000 unit/gram topical powder 1 applic TOPICAL BID groin excoriation 04/24/22 tiotropium bromide 2.5 mcg/actuation mist for inhalation (Spiriva Respimat) 2 puff inhalation DAILY congestion 04/24/22 trazodone 50 mg tablet 50 mg PO QHS insomnia 04/24/22 amoxicillin 875 mg-potassium clavulanate 125 mg tablet 1 tab PO Q12H #14 tabs 04/26/22 prednisone 20 mg tablet 40 mg PO DAILY #14 tabs 04/26/22 Hospital Course Operations None Procedures None Summary of Care Provided Minutes Spent on Discharge: 35 Hospital Course: Per HPI: BRETT CISNEROS, is a 81 F with a significant history of dementia who lives at the memory unit of [facility] presents emergency department with shortness of breath.? Associated with her symptom is gurgling. Reportedly [facility] her oxygen saturation was 78% on room air.? She was placed on 6 L nasal oxygen and her oxygen saturation improved to 92%.? At the emergency department PO2 showed oxygen saturation of 74.1 on 6L.? Patient was placed on BiPAP. History was taken for emergency department doctor; and patient's family (niece and brother over the phone) as patient is baseline confused and cannot provide history. Hospital Course: 1.? Acute hypoxic respiratory failure history of COPD with possible pneumonia due to aspiration ? Unsure as to the etiology at the moment, chest x-ray is unremarkable she does have a history of aspiration ? She has completed azithromycin, will discharge on Augmentin ? Continue with breathing treatments and steroids ? COVID test and flu antigens were negative ? She is on Symbicort and Spiriva as an outpatient ? Echo with a normal EF and a stage I diastolic dysfunction ? Her oxygen level requirement is down to 2 L today, she is breathing much better and is much more alert than on admission, will plan for 7 days of prednisone as well as 7 more days of Augmentin on discharge. Plan for discharge back to [facility] today 2.? Osteoporosis ? Stable ? Continue with alendronate 3.? Hyperlipidemia ? Stable ? Continue with Lipitor 4.? Hypothyroidism ? Stable ? Continue with Synthroid 5.? Dementia ? Severe but stable ? Can you with her Aricept Physical Exam Narrative General: Alert, pleasantly confused and disoriented no apparent distress HEENT: Atraumatic, PERRLA, EOMI, Normocephalic Oral: Moist Mucosa Neck: Supple, No JVD Lungs: Diminished, Normal air movement, No rhonchi, No wheeze, No rales Cardiovascular: Regular rate, Regular Rhythm, Normal S1, Normal S2, No murmurs Abdomen: Soft, Non Tender, Non-Distended, No Hepato-splenomegaly Extremities: No edema, Capillary Refill Less than 3 Seconds Skin: No rashes, No breakdown Musculoskeletal: No Tenderness to Palpation of Joints or Extremities Neurological: Moves all of her extremities, unable to cooperate with an extensive exam Psych/Mental Status: Normal Affect, Appropriate Weight / BMI Weight Weight: 130 lb 4.691 oz Body Mass Index (BMI) 22.6 ABG / Lab / Microbiology Data Result Diagrams: 04/25/22 06:00 04/25/22 06:00 Microbiology: Microbiology 04/24/22 03:10 Urine Catheter - Catheter Legionella Antigen - Final 04/24/22 03:10 Urine Catheter - Catheter Streptococcus pneumoniae Antigen (M - Final 04/23/22 23:42 Mucosa - Nasopharyngeal Respiratory Panel (PCR) - Final 04/23/22 18:37 Nasal Secretion SARS-CoV-2 & FLU Antigen (Rapid) - Final Meaningful Use Info Meaningful Use Diagnoses (Choose all that apply): None applicable Discharge Plan Admission Admit Date/Time: 04/23/22 20:01 Attending Provider: Duane Thomas Primary Care Provider: Janie Barr Consulting Providers: Robert De Guzman Discharge Orders/Prescriptions Prescriptions: New amoxicillin-pot clavulanate 875-125 mg tablet 1 tab PO Q12H Qty: 14 0RF prednisone 20 mg tablet 40 mg PO DAILY Qty: 14 0RF Continued atorvastatin 40 MG tablet 20 mg PO DAILY alendronate 35 MG tablet 35 mg PO FR acetaminophen 325 MG tablet 650 mg PO Q6H PRN PRN (Reason: Mild Pain (1-3)/Temp > 100.7 F) 0RF magnesium hydroxide 30 ML suspension 30 ml PO Q4H PRN PRN (Reason: Constipation) bisacodyl 10 MG suppository 10 mg NJ DAILY PRN (Reason: Constipation) trazodone 50 mg Tablet 50 mg PO QHS donepezil [Aricept] 10 mg Tablet 10 mg PO QHS levothyroxine 75 mcg Tablet 75 mcg PO DAILY albuterol sulfate 90 mcg/actuation Hfa Aerosol Inhaler 2 puff INHALATION Q4H PRN PRN (Reason: SOB/wheezing) loratadine 10 mg Tablet 10 mg PO DAILY budesonide-formoterol [Symbicort] 160-4.5 mcg/actuation Hfa Aerosol Inhaler 1 puff INHALATION BID Spiriva Respimat 2.5 mcg/actuation Mist 2 puff INHALATION DAILY allopurinol 200 mg Tablet 200 mg PO QHS nystatin 1 APPLIC powder 1 applic TOPICAL BID Protocol: *Topical Application Instructions APPLICATION INSTRUCTIONS: apply to abdominal folds Referrals / Follow Up: Janie Barr MD [Primary Care Provider] - Disposition Disposition (needs filled in before D/C Order can be placed): [facility] Charges/Coding Visit Charges Inpatient E&M: 07820 Disch Hosp >30min
--- NOTE | 2022-04-26 10:30 | NURSING ---
I left a vm for pt's brother Lenard to call unit so i a
--- NOTE | 2022-04-26 10:33 | NURSING ---
I left a vm for pt's brother Lenard to call the unit so I could inform him of pt's d/c.
--- NOTE | 2022-04-26 10:37 | NURSING ---
I spoke with Carolynn at [facility] to inform them of pt's d/c.
--- NOTE | 2022-04-26 12:37 | NURSING ---
This RN called and gave report to GREGG Pradhan at [facility].
--- NOTE | 2022-04-26 14:27 | NURSING ---
brother Arley notified of pt's discharge
== END 2022-04-26 15:41 | disposition skilled nursing facility (03) | DRG 189 ==
LOC: ED 19:41 → PCU 21:25
PROVIDERS: Admitting Provider Hospitalist; Emergency Provider Emergency Medicine; PCP Internal Medicine; Visit Provider Family Medicine
DX: J96.01 Acute respiratory failure with hypoxia (principal); J69.0 Pneumonitis due to inhalation of food and vomit; I50.30 Unspecified diastolic (congestive) heart failure; F03.90 Unspecified dementia, unspecified severity, without behavioral disturbance, psychotic disturbance, mood disturbance, and anxiety; J44.9 Chronic obstructive pulmonary disease, unspecified; L98.499 Non-pressure chronic ulcer of skin of other sites with unspecified severity; E78.5 Hyperlipidemia, unspecified; J45.909 Unspecified asthma, uncomplicated; N18.2 Chronic kidney disease, stage 2 (mild); L30.4 Erythema intertrigo; E03.9 Hypothyroidism, unspecified; Z66 Do not resuscitate; Z79.83 Long term (current) use of bisphosphonates; M81.0 Age-related osteoporosis without current pathological fracture
CPT/HCPCS: 36415; 36600; 71045; 80048; 82803; 83605; 83880; 84484; 85025; 87426; 87428; 87449; 87633; 92507; 92526; 92610; 93005; 93306; 94002; 94003; 94640; 94762; 97802; 99285; J7030; Q9957; A4216; C8929; J0295

== ENCOUNTER 2022-04-30 18:12 | Inpatient (IN) | payer MEDICARE, MEDICAID, SELFPAY ==
[2022-04-30 18:13] VITALS: BP 124/71; PULSE 102; RESP 24; TEMP -12.7; TEMP 9.2; O2SAT 95; BMI 24.8
[2022-04-30 18:30] VITALS: BP 124/72; PULSE 96; RESP 24; TEMP 35.7; O2SAT 94
--- NOTE | 2022-04-30 18:46 | EKG12_ITS ---
Test Reason : DYSRHYTHMIA Blood Pressure : / mmHG Vent. Rate : 105 BPM Atrial Rate : 105 BPM P-R Int : 146 ms QRS Dur : 064 ms QT Int : 358 ms P-R-T Axes : 047 -17 042 degrees QTc Int : 473 ms Sinus tachycardia Inferior infarct , age undetermined Abnormal ECG Confirmed by SHARRON MOTTA, FRANCISCO ([id number]), international editorial producer MICH GALLEGOS ([id number]) on 05/04/2022 9:13:50 AM Referred By: AMBER Confirmed By:FRANCISCO MCDERMOTT MD
--- NOTE | 2022-04-30 18:52 | EX.ED.DYSGE1 ---
HPI History of Present Illness Chief Complaint: Shortness of Breath Informant: EMS and SNF Narrative Narrative: Brought in by EMS from [facility] for worsening mental status changes and hypoxia 1 hour prior to arrival. Patient history of dementia unable to provide information. DNR CCA from paperwork. Records reviewed, at admitted a week ago in for 3 days discharged 4 days ago for acute respiratory hypoxia treated for aspiration pneumonia she is on Augmentin currently. Reported they noted patient more altered EMS presented pulse ox in the low 80s she is chronically on 3 L they brought her on 10 L oxygen currently on 6 L nasal cannula. Blood glucose 290. Blood pressure stable. [facility] Medical History (Updated 04/30/22 @ 21:[address] Lindsay Ogden MD) Chronic respiratory failure with hypoxia CKD (chronic kidney disease), stage II COPD (chronic obstructive pulmonary disease) Dementia Dysphagia Gout History of tobacco use HLD (hyperlipidemia) Hypothyroid Osteoporosis Home Medications alendronate 35 mg tablet 35 mg PO FR bones 01/04/19 [History Last Taken 12/30/18] atorvastatin 40 mg tablet 20 mg PO DAILY cholesterol 01/04/19 [History Last Taken 01/04/19] acetaminophen 325 mg tablet 650 mg PO Q6H PRN PRN Mild Pain (1-3)/Temp > 100.7 F 01/08/19 [Rx Last Taken Unknown] bisacodyl 10 mg rectal suppository 10 mg VT DAILY PRN Constipation 03/05/19 [History Last Taken Unknown] magnesium hydroxide 400 mg/5 mL oral suspension 30 ml PO Q4H PRN PRN Constipation 03/05/19 [History Last Taken Unknown] albuterol sulfate 90 mcg/actuation aerosol inhaler 2 puff inhalation Q4H PRN PRN SOB/wheezing 04/24/22 [History Last Taken Unknown] allopurinol 200 mg tablet 200 mg PO QHS gout 04/24/22 [History Last Taken Unknown] budesonide-formoterol HFA 160 mcg-4.5 mcg/actuation aerosol inhaler (Symbicort) 1 puff inhalation BID acute bronchitis 04/24/22 [History Last Taken Unknown] donepezil 10 mg tablet (Aricept) 10 mg PO QHS dementia 04/24/22 [History Last Taken Unknown] levothyroxine 75 mcg tablet 75 mcg PO DAILY thyroid 04/24/22 [History Last Taken Unknown] loratadine 10 mg tablet 10 mg PO DAILY allergies 04/24/22 [History Last Taken Unknown] nystatin 100,000 unit/gram topical powder 1 applic TOPICAL BID groin excoriation 04/24/22 [History Last Taken Unknown] tiotropium bromide 2.5 mcg/actuation mist for inhalation (Spiriva Respimat) 2 puff inhalation DAILY congestion 04/24/22 [History Last Taken Unknown] trazodone 50 mg tablet 50 mg PO QHS insomnia 04/24/22 [History Last Taken Unknown] amoxicillin 875 mg-potassium clavulanate 125 mg tablet 1 tab PO Q12H #14 tabs 04/26/22 [Rx Last Taken Unknown] prednisone 20 mg tablet 40 mg PO DAILY #14 tabs 04/26/22 [Rx Last Taken Unknown] Allergy/AdvReac Type Severity Reaction Status Date / Time No Known Allergies Allergy Verified 03/05/19 16:45 Family History (Updated 04/30/22 @ 19:[address] Lindsay Ogden MD) Mother Diabetes Father No problems noted. Surgical History (Updated 04/30/22 @ 19:[address] Lindsay Ogden MD) History of shoulder surgery Social History (Updated 04/30/22 @ 19:[address] Lindsay Ogden MD) housing: care home Smoking Status: Former smoker how long ago did patient quit smoking: Quit about ~ 7 years prior, smoked ~ 1 ppd since teen until quit. alcohol intake: never substance use type: does not use ROS ROS ED Review of Systems ROS Unobtainable: due to mental status and other Details: Dementia history EXAM Physical Exam Const Vital Signs: 04/30/22 18:13 04/30/22 18:30 04/30/22 19:11 Temperature 9.2 F L 96.2 F L Temperature Source Temporal Temporal Pulse Rate 102 H 96 Respiratory Rate 24 H 24 H Respiratory Effort Respiratory Depth Respiratory Pattern Blood Pressure 124/71 H 124/72 H Blood Pressure Mean 88 89 Pulse Ox 95 94 Oxygen Delivery Method Nasal Cannula Nasal Cannula Nasal Cannula Oxygen Flow Rate (L/min) 6 6 6 04/30/22 19:58 04/30/22 18:55 04/30/22 18:55 Temperature Temperature Source Pulse Rate 98 113 H Respiratory Rate 26 H 24 H 26 H Respiratory Effort Normal Non-Labored Short of Breath Accessory Muscle Use Respiratory Depth Shallow Respiratory Pattern Tachypnea Tachypnea Blood Pressure 129/57 H Blood Pressure Mean 81 Pulse Ox 95 95 Oxygen Delivery Method Nasal Cannula Nasal Cannula Oxygen Flow Rate (L/min) 6 6 Constitutional Narrative: 6 l nasal cannula with upper airway wheezing, no sensory muscle use. Following some commands. General Appearance ED: NAD HEENT Reports moist mucous membranes normocephalic and atraumatic Eyes PERRL, EOMs intact bilaterally and conjunctivae normal General Eye ED: Yes normal appearance of both eyes Neck no lymphadenopathy and supple General: Negative for tenderness Chest Wall Chest: Negative for tenderness Resp Resp Narrative: Upper airway wheezing, symmetric breath sounds Effort and Inspection: symmetric chest movement; Negative for respiratory distress Cardio regular rate, regular rhythm and no murmurs Peripheral Pulses: pulses 2+ throughout GI normal to inspection, nondistended, normoactive bowel sounds and non-tender Palpation: Negative for guarding or rebound tenderness present Back/Spine no CVA tenderness and no thoracic nor lumbar tenderness Extremity normal to inspection General Extremety ED: Negative for edema or tenderness General Extremity: Negative for edema Neuro no sensory deficits noted Sensorium / Orientation: awake and alert Skin no rashes or lesions noted and no wounds Sepsis Attestation Sepsis Attestation: Sepsis Ruled Out Possible Source of Sepsis: Pulmonary Fluid Resuscitation Fluid Resuscitation ordered: Fluids not indicated MDM MDM MDM Narrative Medical decision making narrative: Patient with dementia reporting worsening altered mental status was hypoxic now on 6 L. History of aspiration. She had upper airway wheezing aerosol treatments given. Differential aspiration pneumonia. Possible UTI. Possible bronchitis. Possible electrolyte abnormality. Sepsis labs were ordered. She is moving all 4 extremities therefore less likely for stroke symptoms. COVID negative. Labs returned white count of 19 a and 1 lactic acid of 1.8. Urine was negative for infection. 1 view chest x-ray interpreted by myself and read by radiology negative for acute process. However with possible aspiration this may have not shown at this time. She has a leukocytosis, she is covered with Unasyn due to a history of this. She is stable on 6 L oxygen at this time. She is a DNR CCA. Nursing with troubles with IV access small line placed in left hand. I placed a left 20-gauge EJ under sterile conditions. There is no complications with this. I spoke with hospitalist Dr. Ogden for admission. Lab Data Attestation: I reviewed the patient's lab results. Labs: Laboratory Results - last 24 hr 04/30/22 04/30/22 04/30/22 19:29 19:29 19:29 WBC 19.8 H RBC 4.92 Hgb 14.5 Hct 47.6 H MCV 96.7 MCH 29.5 MCHC 30.5 L RDW Std Deviation 49.0 H RDW Coeff of Rita 13.8 Plt Count 233 MPV 10.6 Immature Gran % (Auto) 2.900 H Neut % (Auto) 91.2 H Lymph % (Auto) 3.0 L [place] % (Auto) 2.3 Eos % (Auto) 0.1 Baso % (Auto) 0.5 Absolute Neuts (auto) 18.1 H Absolute Lymphs (auto) 0.59 L Nucleated RBC % 0 Differential Comment SCANNED PT 12.6 INR 1.0 APTT 24.9 Sodium 143 Potassium 4.2 Chloride 105 Carbon Dioxide 30.0 Anion Gap 8 BUN 22 H Creatinine 1.00 Estim Creat Clear Calc 33.71 Est GFR (MDRD) Af Amer 68 Est GFR (MDRD) Non-Af 56 L BUN/Creatinine Ratio 22.0 H Glucose 215 H Lactic Acid Calcium 9.0 Total Bilirubin 0.40 AST 30 ALT 137 H Alkaline Phosphatase 80 Total Protein 7.5 Albumin 3.4 Globulin 4.1 Albumin/Globulin Ratio 0.8 L Procalcitonin Urine Color Urine Clarity Urine pH Ur Specific [place] Urine Protein Urine Glucose (UA) Urine Ketones Urine Occult Blood Urine Nitrite Urine Bilirubin Urine Urobilinogen Ur Leukocyte Esterase Urine RBC Urine WBC Ur Squamous Epith Cells Urine Bacteria Urine Mucus 04/30/22 04/30/22 04/30/22 19:29 19:29 19:50 WBC RBC Hgb Hct MCV MCH MCHC RDW Std Deviation RDW Coeff of Rita Plt Count MPV Immature Gran % (Auto) Neut % (Auto) Lymph % (Auto) [place] % (Auto) Eos % (Auto) Baso % (Auto) Absolute Neuts (auto) Absolute Lymphs (auto) Nucleated RBC % Differential Comment PT INR APTT Sodium Potassium Chloride Carbon Dioxide Anion Gap BUN Creatinine Estim Creat Clear Calc Est GFR (MDRD) Af Amer Est GFR (MDRD) Non-Af BUN/Creatinine Ratio Glucose Lactic Acid 1.8 Calcium Total Bilirubin AST ALT Alkaline Phosphatase Total Protein Albumin Globulin Albumin/Globulin Ratio Procalcitonin 0.13 H Urine Color Yellow Urine Clarity Clear Urine pH 5.0 Ur Specific [place] 1.025 Urine Protein 15 H Urine Glucose (UA) NEGATIVE Urine Ketones Negative Urine Occult Blood 10 Urine Nitrite Negative Urine Bilirubin Negative Urine Urobilinogen Normal Ur Leukocyte Esterase Negative Urine RBC 0 SEEN Urine WBC 0 SEEN Ur Squamous Epith Cells 0 SEEN Urine Bacteria 0 SEEN Urine Mucus RARE Radiography Diagnostic Testing: Clinical Impression(s) from Imaging Studies Chest X-Ray 04/30/22 20:04 IMPRESSION: No radiographic evidence of acute cardiopulmonary disease. Electronically Signed: Michael Toure MD at 20:18 EST , EKG Initial EKG: Attestation: I personally reviewed and interpreted this EKG as follows: Comments: Sinus rate of 105, no ST or T wave changes Discharge Plan Dx/Rx/DC Orders Clinical Impression: Acute hypoxemic respiratory failure, Dementia, Aspiration into respiratory tract Disposition Disposition: Acute Care Hospital [facility] Discharge Date/Time: 04/30/22 22:05
[2022-04-30 18:55] VITALS: PULSE 113; RESP 24; RESP 26; O2SAT 95
[2022-04-30] MEDS: Ipratropium/Albuterol Sulfate 3 ML AMPUL.NEB INHALATION (18:55)
[2022-04-30 19:38] LABS: Absolute Lymphocyte Count 0.59 X10^3/uL (0.83-4.51); Absolute Neutrophil Count 18.1 X10^3/uL (2.0-7.7); Basophil# 0.09 X10^3/uL; Basophil% 0.5 % (0-1); Eosinophil# 0.01 X10^3/uL; Eosinophils% 0.1 % (0-5); Hematocrit 47.6 % (37-47); Hemoglobin 14.5 g/dL (12.0-15.0); Lymphocyte # 0.59 X10^3/ul (0.83-4.51); Mean Corp Hgb Conc 30.5 g/dL (32-36); Mean Corpuscular Hgb 29.5 pg (27.0-32.0); Mean Corpuscular Volume 96.7 fL (81-99); Mean Platelet Vol. 10.6 fl (6.2-12.0); Monocyte# 0.45 X10^3/uL; Monocyte% 2.3 % (0-10); NRBC Flagged by Analyzer 0 % (0-5); Neutrophil # 18.11 X10^3/uL (2.7-7.7); Neutrophil % 91.2 % (47-70); POSITIVE DIFFERENTIAL YES; Platelet Count 233 K/mm3 (150-450); RBC Distribution Width CV 13.8 % (11.6-14.6); Red Blood Count 4.92 M/mm3 (4.2-5.4); White Blood Count 19.8 K/mm3 (4.4-11.0)
[2022-04-30 19:40] LABS: Differential Indicated SCAN CRITERIA MET
[2022-04-30 19:48] LABS: Partial Thromboplast Time 24.9 Seconds (24.1-36.2); Prothrombin Time (Protime)PT. 12.6 SECONDS (11.7-14.9)
[2022-04-30 19:56] LABS: ALB/GLOB Ratio 0.8 RATIO (0.9-2.4); AST(SGOT) 30 U/L (15-37); Alanine Aminotransfer ALT/SGPT 137 U/L (13-56); Albumin, Serum 3.4 g/dL (3.2-5.0); Alkaline Phosphatase 80 U/L (45-117); Anion Gap 8 (5-15); BUN 22 mg/dL (7-18); Chloride 105 mmol/L (98-107); EST Glomerular Filtration Rate 56 mL/min (>60); Est Glom Filt Rate - Afr Amer 68 mL/min (>60); Estimated Creatinine Clearance 33.71 ml/min; Globulin 4.1 g/dL (2.2-4.2); Glucose 215 mg/dL (74-106); Potassium 4.2 mmol/L (3.5-5.1); Protein, Total 7.5 g/dL (6.4-8.2); Sodium Level 143 mmol/L (136-145)
[2022-04-30 19:58] VITALS: BP 129/57; PULSE 98; RESP 26; O2SAT 95
[2022-04-30 19:59] LABS: Differential Comment SCANNED
[2022-04-30 20:03] LABS: Bacteria 0 SEEN /hpf (None Seen); Red Blood Cells-Urine 0 SEEN /hpf (0-5); Squamous Epithelial Cells - UA 0 SEEN /hpf (5-10); White Blood Cells 0 SEEN /hpf (0-5)
--- NOTE | 2022-04-30 20:04 | RAD_ITS ---
INDICATION: dyspnea EXAMINATION/TECHNIQUE: X-RAY - portable upright AP chest x-ray COMPARISON: 04/23/2022 FINDINGS: LINES/DEVICES: None. LUNGS: No consolidation, edema or effusion. No pneumothorax. MEDIASTINUM AND CARDIOVASCULAR STRUCTURES: Cardiac silhouette not enlarged. Central airways and mediastinal contour are unremarkable. BONES AND SOFT TISSUES: Unremarkable. RAD/Chest 1 View (Portable) IMPRESSION: No radiographic evidence of acute cardiopulmonary disease. Electronically Signed: Michael Toure MD at 20:18 EST ,
[2022-04-30 20:11] LABS: Color, Urine Yellow (Yellow); Glucose, Dipstick NEGATIVE (Normal); Urine Bilirubin Dipstick Negative (Negative); Urine Clarity Clear (Clear)
[2022-04-30 20:12] LABS: Ketone-Dipstick Negative (Negative); Leukocyte Esterase-Dipstick Negative /ul (Negative); Mucous, Urine RARE /hpf (<or=2+); Nitrite-Dipstick Negative (Negative); Occult Blood-Urine 10 /ul (Negative); Protein-Dipstick 15 mg/dl (Negative); Specific Gravity, Urine 1.025 (1.002-1.030); Urine Urobilinogen Normal (Normal)
[2022-04-30 20:27] LABS: Lactic Acid 1.8 mmol/L (0.4-1.9)
[2022-04-30 21:07] VITALS: BP 140/82; PULSE 61; RESP 17; O2SAT 94
[2022-04-30 21:23] VITALS: BP 122/45; PULSE 58; RESP 17; TEMP 36.7; O2SAT 94
--- NOTE | 2022-04-30 21:25 | HP.PCM.HOS_ITS ---
HPI - General General Date of Admission: 04/30/22 Date of Service: 04/30/22 Chief Complaint: Worsening dyspnea, hypoxia, recent D/C w/ aspiration PNA/COPD Exacerbation HPI Narrative The patient is an 82 y/o F residing in the memory care unit at [facility] w/ PMHx: CKD stage II, Dementia unclear type with unclear behavioral disturbance history not ed to be nonverbal and minimally interactive baseline, Hypothyroidism, HLD, Gout, COPD w/ Chronic Hypoxic Respiratory Failure (3L NC baseline) with Former tobacco use who presents to the [facility] ED on 04/30/22 with history of significant hypoxia for at least 1 hour prior to ED arrival with history of admission approximately 1 week ago with discharge after 3 days treated for aspiration pneumonia as well as COPD exacerbation with Augmentin in addition to a steroid taper and supplemental oxygen above her baseline; however, given worsening status with necessity for up to 10 L oxygen to maintain appropriate saturations at facility prompted ED transition. Work-up in the ED included T96.2, heart rate 96, BP 124/72, respiratory rate 24, 94% on 6 L nasal cannula, CBC with WC 19.8 (patient of note on recent steroids and ongoing outpatient oral taper at discharge), hemoglobin 14.5, platelets 233 with significant left shift and lymphopenia, unremarkable coags, CMP with BUN/creat 22/1.0, glucose 215, un remarkable hepatic profile aside ALT 137, lactic acid 1.8, urinalysis with elevated specific gravity 1.025 otherwise no acute findings or evidence of UTI, blood culture x2 pending per ED, urine culture pending per ED, rapid COVID antigen negative, chest x-ray with no acute cardiopulmonary findings. In the ED patient administered DuoNeb therapy and IV Unasyn. [facility] Medical History (Updated 04/30/22 @ 21:[address] Lindsay Ogden MD) Chronic respiratory failure with hypoxia CKD (chronic kidney disease), stage II COPD (chronic obstructive pulmonary disease) Dementia Dysphagia Gout History of tobacco use HLD (hyperlipidemia) Hypothyroid Osteoporosis Home Medications alendronate 35 mg tablet 35 mg PO FR bones 01/04/19 [History Last Taken 12/30/18] atorvastatin 40 mg tablet 20 mg PO DAILY cholesterol 01/04/19 [History Last Taken 01/04/19] acetaminophen 325 mg tablet 650 mg PO Q6H PRN PRN Mild Pain (1-3)/Temp > 100.7 F 01/08/19 [Rx Last Taken Unknown] bisacodyl 10 mg rectal suppository 10 mg [place] DAILY PRN Constipation 03/05/19 [History Last Taken Unknown] magnesium hydroxide 400 mg/5 mL oral suspension 30 ml PO Q4H PRN PRN Constipation 03/05/19 [History Last Taken Unknown] albuterol sulfate 90 mcg/actuation aerosol inhaler 2 puff inhalation Q4H PRN PRN SOB/wheezing 04/24/22 [History Last Taken Unknown] allopurinol 200 mg tablet 200 mg PO QHS gout 04/24/22 [History Last Taken Unkn own] budesonide-formoterol HFA 160 mcg-4.5 mcg/actuation aerosol inhaler (Symbicort) 1 puff inhalation BID acute bronchitis 04/24/22 [History Last Taken Unknown] donepezil 10 mg tablet (Aricept) 10 mg PO QHS dementia 04/24/22 [History Last Taken Unknown] levothyroxine 75 mcg tablet 75 mcg PO DAILY thyroid 04/24/22 [History Last Taken Unknown] loratadine 10 mg tablet 10 mg PO DAILY allergies 04/24/22 [History Last Taken Unknown] nystatin 100,000 unit/gram topical powder 1 applic TOPICAL BID groin excoriation 04/24/22 [History Last Taken Unknown] tiotropium bromide 2.5 mcg/actuation mist for inhalation (Spiriva Respimat) 2 puff inhalation DAILY congestion 04/24/22 [History Last Taken Unknown] trazodone 50 mg tablet 50 mg PO QHS insomnia 04/24/22 [History Last Taken Unknown] amoxicillin 875 mg-potassium clavulanate 125 mg tablet 1 tab PO Q12H #14 tabs 04/26/22 [Rx Last Taken Unknown] prednisone 20 mg tablet 40 mg PO DAILY #14 tabs 04/26/22 [Rx Last Taken Unknown] Allergy/AdvReac Type Severity Reaction Status Date / Time No Known Allergies Allergy Verified 03/05/19 16:45 Family History (Updated 04/30/22 @ 19:[address] Lindsay Ogden MD) Mother Diabetes Father No problems noted. Family History other other (Father when patient was young in [place]. No medical history prior to this including HD, DM, CA.) Surgical History (Updated 04/30/22 @ 19:[address] Lindsay Ogden MD) History of shoulder surgery Social History (Updated 04/30/22 @ 19:[address] Lindsay Ogden MD) housing: retirement Smoking Status: Former smoker how long ago did patient quit smoking: Quit about ~ 7 years prior, smoked ~ 1 ppd since teen until quit. alcohol intake: never substance use type: does not use ROS Review of Systems ROS Unobtainable: other Details: Unable to give ROS secondary to severe dementia with baseline nonverbal, not markedly interactive status. Vital Signs Vital Signs Vital Signs: 04/30/22 18:13 04/30/22 18:30 04/30/22 19:11 Temperature 9.2 F L 96.2 F L Temperature Source Temporal Temporal Pulse Rate 102 H 96 Respiratory Rate 24 H 24 H Respiratory Effort Respiratory Depth Respiratory Pattern Blood Pressure 124/71 H 124/72 H Blood Pressure Mean 88 89 Pulse Ox 95 94 Oxygen Delivery Method Nasal Cannula Nasal Cannula Nasal Cannula Oxygen Flow Rate (L/min) 6 6 6 04/30/22 19:58 04/30/22 18:55 04/30/22 18:55 Temperature Temperature Source Pulse Rate 98 113 H Respiratory Rate 26 H 24 H 26 H Respiratory Effort Normal Non-Labored Short of Breath Accessory Muscle Use Respiratory Depth Shallow Respiratory Pattern Tachypnea Tachypnea Blood Pressure 129/57 H Blood Pressure Mean 81 Pulse Ox 95 95 Oxygen Delivery Method Nasal Cannula Nasal Cannula Oxygen Flow Rate (L/min) 6 6 Weight Weight: 136 lb 0.403 oz Body Mass Index (BMI) 24.8 Physical Exam Narrative Physical Examination: General: Patient will awaken, intermittently has been alert, not answering any questions, baseline nonverbal and minimally interactive per report, seated upright in ED bed, no overt distress or respiratory distress noted. Skin: Normal color, normal turgor, no icterus, no cyanosis except occasional very staged ecchymoses, intertrigo improved. HEENT: AT/NC, EOM difficult assess as underlying notable dementia, PERRLA, dry MM, no carotid bruits or JVD noted. Lungs: Bilaterally diminished, greater bases, occasional end expiratory wheeze, no marked evidence of any respiratory distress, no marked rales or rhonchi. Heart: Currently regular rate and rhythm; no gallop, rub audible. Abdomen: Soft, NTTP, ND, distant normal BS, no HSM. Extremities: No cyanosis, clubbing, or edema. Neurological: Patient will awaken, intermittently has been alert, not answering any questions, baseline nonverbal and minimally interactive per report, seated upright in ED bed, no overt distress or respiratory distress noted, cognitive function significantly decreased baseline as noted, appears similar and intact intact; pupils equally reactive to light and accommodation, cranial nerves difficult to assess given severity of dementia but appears appropriate, moving all 4 extremities to stimuli, strength severely global decreased. Psychiatric: Affect appears flat, nonverbal, minimally interactive, no acute evidence of depressive or anxiety feelings. Results Lab / Micro Data Result Diagrams: 04/30/22 19:29 04/30/22 19:29 Labs: Laboratory Results - last 24 hr 04/30/22 19:29: WBC 19.8 H, RBC 4.92, Hgb 14.5, Hct 47.6 H, MCV 96.7, MCH 29.5, MCHC 30.5 L, RDW Std Deviation 49.0 H, RDW Coeff of Rita 13.8, Plt Count 233, MPV 10.6, Immature Gran % (Auto) 2.900 H, Neut % (Auto) 91.2 H, Lymph % (Auto) 3.0 L , [facility] % (Auto) 2.3, Eos % (Auto) 0.1, Baso % (Auto) 0.5, Absolute Neuts (auto) 18.1 H, Absolute Lymphs (auto) 0.59 L, Nucleated RBC % 0, Differential Comment SCANNED 04/30/22 19:29: PT 12.6, INR 1.0, APTT 24.9 04/30/22 19:29: Sodium 143, Potassium 4.2, Chloride 105, Carbon Dioxide 30.0, Anion Gap 8, BUN 22 H, Creatinine 1.00, Estim Creat Clear Calc 33.71, Est GFR (MDRD) Af Amer 68, Est GFR (MDRD) Non-Af 56 L, BUN/Creatinine Ratio 22.0 H, Glucose 215 H, Calcium 9.0, Total Bilirubin 0.40, AST 30, ALT 137 H, Alkaline Phosphatase 80, Total Protein 7.5, Albumin 3.4, Globulin 4.1, Albumin/Globulin Ratio 0.8 L 04/30/22 19:29: Lactic Acid 1.8 04/30/22 19:50: Urine Color Yellow, Urine Clarity Clear, Urine pH 5.0, Ur Specific Allison 1.025, Urine Protein 15 H, Urine Glucose (UA) NEGATIVE, Urine Ketones Negative, Urine Occult Blood 10, Urine Nitrite Negative, Urine Bilirubin Negative, Urine Urobilinogen Normal, Ur Leukocyte Esterase Negative, Urine RBC 0 SEEN, Urine WBC 0 SEEN, Ur Squamous Epith Cells 0 SEEN, Urine Bacteria 0 SEEN, Urine Mucus RARE Micro: Microbiology 04/30/22 19:15 Nasal Secretion SARS-CoV-2 Antigen (Rapid) - Final Radiology Impression Chest X-Ray 04/30/22 20:04 IMPRESSION: No radiographic evidence of acute cardiopulmonary disease. Electronically Signed: Michael Toure MD at 20:18 EST , Assessment & Plan Assessment/Plan (1) Pneumonia: (2) Acute and chronic respiratory failure with hypoxia: PLAN: Plan The patient is an 82 y/o F residing in the memory care unit at [facility] w/ PMx: CKD stage II, Dementia unclear type with unclear behavioral disturbance history noted to be nonverbal and minimally interactive baseline, Hypothyroidism, HLD, Gout, COPD w/ Chronic Hypoxic Respiratory Failure (3L NC baseline) with Former tobacco use who presents to the [facility] ED on 04/30/22 with history of significant hypoxia for at least 1 hour prior to ED arrival with history of admission approximately 1 week ago with discharge after 3 days treated for aspiration pneumonia as well as COPD exacerbation with Augmentin in addition to a steroid taper and supplemental oxygen above her baseline; however, given worsening status with necessity for up to 10 L oxygen to maintain appropriate saturations at facility prompted ED transition. #1. Acute on Chronic Hypoxic Respiratory Failure secondary to Recent Acute Aspiration Pneumonia and concurrent Acute on Chronic COPD exacerbation, worsening despite recent treatments including antibiotic therapies, supplemental oxygen and steroid taper although chest x-ray not severe appearing of note: Will admit to [facility] given worsening status, maintain on oxygen with wean as tolerated to home oxygen supplementation 3L NC, continue ATC duonebs, PRN albuterol, will restart on IV Zosyn as well as IV methylprednisolone, HOB, IS parameters, reque st sputum Cx request, request full respiratory viral panel, request antigens, pending procalcitonin, PT/OT/ST/CM consultations for discharge planning, fall and aspiration precautions. Will maintain n.p.o. status pending assessment per speech therapy in case continued aspiration ongoing as partial etiology for worsening status. #2. Hyperglycemia, possibly stress response, no prior diabetic history reported: Admission glucose 215, no diabetic history per report, will obtain hemoglobin A1c and in the interim given significant elevation will maintain on insulin sliding scales with Accu-Cheks, currently NPO w/ meds pending repeat ST evaluation but once appropriate ADA diet and if consistent with diabetes may consider involving nutrition although given dementia may be low yield #3. Dementia, unclear type with unclear behavioral disturbance history: Resides in a memory care unit, patient is minimally verbal and minimally interactive baseline, continue patient on Aricept regimen, maintain on fall and aspiration precautions, case management as well as therapies consulted for discharge pl anning as noted including speech therapy given concerns for ongoing aspiration. #4. Hyperlipidemia: We will continue patient home statin therapy #5. Hypothyroidism: We will continue patient home levothyroxine regimen. #6. Gout: We will continue patient home allopurinol regimen. #7. Former tobacco use: Encourage continued tobacco cessation. #8. Chronic Kidney Disease Stage II: Admission BUN/Cr 22/1.0, baseline renal function 0.7-1.0, repeat BMP in AM. #9. DVT prophylaxis: SCDs, Lovenox. #10. CODE STATUS: DNR-CCA, no intubation per facility paperwork. Admission Evaluation Time spent evaluating chart, patient history, patient evaluation, care planning and discussion with specialists in addition to discussion with patient family to ascertain past history and baseline nonverbal status: 75 minutes. Charges/Coding Visit Charges Inpatient E&M: 45647 Init Hosp L3
[2022-04-30 21:43] LABS: Procalcitonin 0.13 ng/mL (0.00-0.09)
[2022-04-30 23:40] VITALS: BMI 31.9
[2022-05-01] VITALS (11 sets, daily range): BP systolic 87–118; BP diastolic 53–95; PULSE 54–79; RESP 16–20; TEMP 36.9–37.2; O2SAT 90–97
[2022-05-01] MEDS: 0.9% Normal Saline 1,000 ML 100 ML IV (00:25)
[2022-05-01] MEDS: Nystatin Powder 15gm Bottle 1 APPLIC TOPICAL ×3 (01:26→22:37)
[2022-05-01 06:10] LABS: Bedside Glucose 122 mg/dL (74-106)
[2022-05-01] MEDS: Ipratropium/Albuterol Sulfate 3 ML AMPUL.NEB INHALATION ×4 (07:00→19:15)
[2022-05-01 07:42] LABS: Absolute Lymphocyte Count 0.75 X10^3/uL (0.83-4.51); Absolute Neutrophil Count 15.9 X10^3/uL (2.0-7.7); Basophil# 0.02 X10^3/uL; Basophil% 0.1 % (0-1); Hematocrit 42.7 % (37-47); Hemoglobin 13.2 g/dL (12.0-15.0); Lymphocyte # 0.75 X10^3/ul (0.83-4.51); Lymphocyte % 4.3 % (19-41); Mean Corp Hgb Conc 30.9 g/dL (32-36); Mean Corpuscular Hgb 29.4 pg (27.0-32.0); Mean Corpuscular Volume 95.1 fL (81-99); Mean Platelet Vol. 10.7 fl (6.2-12.0); Monocyte# 0.34 X10^3/uL; NRBC Flagged by Analyzer 0 % (0-5); Neutrophil # 15.93 X10^3/uL (2.7-7.7); Neutrophil % 92.2 % (47-70); Platelet Count 193 K/mm3 (150-450); RBC Distribution Width CV 13.7 % (11.6-14.6); RBC Distribution Width SD 47.8 fl (35.1-43.9); Red Blood Count 4.49 M/mm3 (4.2-5.4); White Blood Count 17.3 K/mm3 (4.4-11.0)
[2022-05-01 08:01] LABS: Bedside Glucose 128 mg/dL (74-106)
--- NOTE | 2022-05-01 08:01 | NURSING ---
CPS aware of order and pt need for deep suctioning.
--- NOTE | 2022-05-01 08:13 | NURSING ---
CPS at bedside to do deep suctioning
[2022-05-01 08:15] LABS: ALB/GLOB Ratio 0.7 RATIO (0.9-2.4); AST(SGOT) 18 U/L (15-37); Alanine Aminotransfer ALT/SGPT 90 U/L (13-56); Albumin, Serum 2.6 g/dL (3.2-5.0); Alkaline Phosphatase 62 U/L (45-117); Anion Gap 7 (5-15); BUN 18 mg/dL (7-18); BUN/Creat Ratio 25.6 RATIO (10-20); Calcium,Total 8.4 mg/dL (8.5-10.1); Chloride 107 mmol/L (98-107); EST Glomerular Filtration Rate 85 mL/min (>60); Est Glom Filt Rate - Afr Amer 102 mL/min (>60); Estimated Creatinine Clearance 33.71 ml/min; Globulin 3.7 g/dL (2.2-4.2); Glucose 152 mg/dL (74-106); Protein, Total 6.3 g/dL (6.4-8.2); Sodium Level 141 mmol/L (136-145)
[2022-05-01 08:19] LABS: Hemoglobin A1c 5.8 % (3.8-5.6)
[2022-05-01] MEDS: Enoxaparin 40 MG/0.4 ML Syringe SC (11:24)
[2022-05-01 11:41] LABS: Bedside Glucose 172 mg/dL (74-106)
--- NOTE | 2022-05-01 14:47 | SP.MBSS_ITS ---
Modified Barium Swallow - Patient Information Study Date: 05/01/22 Study Time: 12:30 Direct Billable Minutes: 32 Total Minutes procedure & reportin Diagnosis: Pneumonia (J18.9), Acute hypoxemic respiratory failure (J96.01) Referring Physician: Isaac Gilbert Reason for Referral: Objectively assess swallow function, assess risk for aspiration, and determine recommendations for least restrictive diet textures and compensatory strategies to improve safety of swallow. Medical History: The patient is an 82-year-old female residing in the memory care unit at [facility] w/ [facility] including: CKD stage II, Dementia unclear type with unclear behavioral disturbance history noted to be nonverbal and minimally interactive baseline, Hypothyroidism, HLD, Gout, COPD w/ Chronic Hypoxic Respiratory Failure (3L NC baseline) with Former tobacco use. Pt presented to the [facility] ED on 04/30/22 with worsening dyspnea and hypoxia (need for 10L O2 to maintain oxygenation at facility) for at least one hour prior to ED arrival prompting admission. Pt had recent discharge from [facility] for aspiration PNA/COPD exacerbation. Admitting chest x-ray with no acute cardiopulmonary findings. Pt admitted for management of acute on chronic hypoxia and concern for aspiration PNA/COPD exacerbation. She was made NPO and referred for speech consult to assess concerns for swallowing difficulty. Pt was seen at bedside with no s/s of aspiration consuming oral intake trials; however, pt referred for MBSS prior to diet advancement to rule out risk for silent aspiration provided concern for aspiration PNA and hx of COPD. Current Diet Ordered: NPO Mental Status: Impaired - hx of dementia Respiratory Status: Oxygenating on 4L/M nasal cannula - 8L via nasal cannula - Penetration-Aspiration Scale Penetration-Aspiration Scale: OBJECTIVE ASSESSMENT OF SWALLOW FUNCTION (QUANTITATIVE ? PER TRIAL): PENETRATION / ASPIRATION SCALE (GALVAN): 1 = does not enter airway 2 = enters airway/above vocal folds/ejected 3 = enters airway/above vocal folds/not ejected 4 = enters airway/contacts vocal folds/ejected 5 = enters airway/contacts vocal folds/not ejected 6 = enters airway/below vocal folds/ejected 7 = enters airway/below vocal folds/not ejected despite effort 8 = enters airway/below vocal folds/no effort VIDEOFLOROSCOPIC SCALE SCORE (GALVAN): Grade I = aspiration of material that has penetrated into the laryngeal vestibule, intact cough reflex Grade II = aspiration < 10 % of the bolus, intact cough reflex Grade III = aspiration of < 10 % of the bolus, reduced cough reflex or aspiration of > 10 % of the bolus, intact cough reflex Grade IV = aspiration of > 10 % of the bolus, reduced cough reflex - Penetration-Aspiration Scale Score Thin Liquid via teaspoon Comment: Unable to score due to patient's body habitus. Thin Liquid via teaspoon Trial 2 Comment: Unable to score due to patient's body habitus despite BELT BUILDER HELPER and robotics technician's attempts at repositioning. - Oral Phase Labial Seal: No Labial Escape Tongue Control During Bolus Hold: Posterior escape of greater than half of bolus Bolus Transport/Lingual Motion: Delayed initiation of tongue motion Oral Residue: Trace residue lining oral structures - Diagnosis/Impression Diagnosis: Mild-moderate oropharyngeal phase dysphagia (R13.12) Impression: MBSS was largely inconclusive. BELT BUILDER HELPER did not proceed past two trials of tsp sips of thin barium as the patient was too kyphotic to obtain necessary imaging. Based on BSE completed earlier this date revealing no overt s/s of aspiration or decrease in SpO2 with any food or thin drink trials, will recommend diet advancement to puree textures / thin liquids - TOTAL FEED, small bites/sips, slow rate, upright 90 degrees during and 30 min after oral intake, ENSURE PATIENT IS MAINTAINING ADEQUATE OXYGENATION WITH ORAL INTAKE. BELT BUILDER HELPER spoke with RN, Arline, regarding recommendations, updated diet order, and placed nursing communication note. Will recommend Fiberoptic Endoscopic Evaluation of Swallowing (FEES) upon discharge to objectively evaluate swallow function and aspiration risk. BELT BUILDER HELPER spoke with case management assistant regarding this recommendation to include in the patient's discharge planning. - Recommendations Diet: Puree Textures, Thin Liquids Compensatory Strategies: Small Bites, Small Sips, Slow Rate, Sitting upright, Remain sitting upright for 30 minutes after PO intake Supervision: Total Feed Recommend Repeat Modified Barium Swallow: No Need for Skilled Speech Therapy Services: Yes Comment: Continue to follow for ongoing assessment of diet tolerance. Monitor respiratory status closely when considering diet tolerance. Education Completed: 1. Described result of evaluation., 7. Pt requires further education on strategies & risks. - Status Active ST Patient: Active - Contact Information [facility] Speech Therapy:: Marguerite Gloria M.A. TANISHA-BELT BUILDER HELPER Speech-Language Pathologist [facility] [address] [place] [address] [email or web address] [phone] 05/01/22 14:57
--- NOTE | 2022-05-01 16:09 | CASEMGMT ---
Social Work SW met with pt who confirms she lives at [facility] and plans to return there. 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 [facility] also states that pt has been on the border with hospice. If it is determined that hospice is needed, preferred provider is [facility]. Plan: [facility], when medically ready MONAE Benton
[2022-05-01 16:19] LABS: D-Dimer Quantitative (DVT/PE) 0.55 FEU/ug/m (0.27-0.49)
[2022-05-01] MEDS: Insulin Lispro 100 UNIT/ML INSULN.PEN SC ×2 (18:02→22:41)
[2022-05-01 18:15] LABS: Bedside Glucose 176 mg/dL (74-106)
--- NOTE | 2022-05-01 19:11 | PCM.PN.HOSP ---
Subjective Subjective Patient was seen and examined today, she has expiratory wheezes on auscultation of the lungs, patient appears lethargic today. I performed a D-dimer on the patient to see if it would indicate whether she could have had a PE-it came back slightly elevated today, I do not think this is significant. Patient was seen by speech and underwent of swallowing eval today, it was recommended that the patient be on thin liquids with pur?ed diet. Objective Data Objective Data Vital Signs: Vital Signs Temp Pulse Resp BP Pulse Ox O2 Del Method O2 Flow Rate 98.9 F 66 18 110/70 97 Nasal Cannula 8 05/01/22 15:57 05/01/22 15:57 05/01/22 16:48 05/01/22 15:57 05/01/22 15:57 05/01/22 16:48 05/01/22 16:48 FiO2 97 04/30/22 23:40 Oxygen Flow Rate (L/min) 8 Oxygen Delivery Method Nasal Cannula Weight: 79.3 kg Body Mass Index (BMI) 31.9 Intake & Output: Intake and Output for Last 24 Hours 04/29/22 04/30/22 05/01/22 23:59 23:59 23:59 Intake Total 112 / 112 933.33 / 933.33 Output Total 550 / 550 Balance 112 / 112 383.33 / 383.33 Lab / Micro Data Result Diagrams: 05/01/22 07:20 05/01/22 07:20 Labs: Laboratory Results - last 24 hr 04/30/22 19:29: WBC 19.8 H, RBC 4.92, Hgb 14.5, Hct 47.6 H, MCV 96.7, MCH 29.5, MCHC 30.5 L, RDW Std Deviation 49.0 H, RDW Coeff of Rita 13.8, Plt Count 233, MPV 10.6, Immature Gran % (Auto) 2.900 H, Neut % (Auto) 91.2 H, Lymph % (Auto) 3.0 L, Fillmore % (Auto) 2.3, Eos % (Auto) 0.1, Baso % (Auto) 0.5, Absolute Neuts (auto) 18.1 H, Absolute Lymphs (auto) 0.59 L, Nucleated RBC % 0, Differential Comment SCANNED 04/30/22 19:29: PT 12.6, INR 1.0, APTT 24.9 04/30/22 19:29: Sodium 143, Potassium 4.2, Chloride 105, Carbon Dioxide 30.0, Anion Gap 8, BUN 22 H, Creatinine 1.00, Estim Creat Clear Calc 33.71, Est GFR (MDRD) Af Amer 68, Est GFR (MDRD) Non-Af 56 L, BUN/Creatinine Ratio 22.0 H, Glucose 215 H, Calcium 9.0, Total Bilirubin 0.40, AST 30, ALT 137 H, Alkaline Phosphatase 80, Total Protein 7.5, Albumin 3.4, Globulin 4.1, Albumin/Globulin Ratio 0.8 L 04/30/22 19:29: Lactic Acid 1.8 04/30/22 19:29: Procalcitonin 0.13 H 04/30/22 19:50: Urine Color Yellow, Urine Clarity Clear, Urine pH 5.0, Ur Specific Bruce 1.025, Urine Protein 15 H, Urine Glucose (UA) NEGATIVE, Urine Ketones Negative, Urine Occult Blood 10, Urine Nitrite Negative, Urine Bilirubin Negative, Urine Urobilinogen Normal, Ur Leukocyte Esterase Negative, Urine RBC 0 SEEN, Urine WBC 0 SEEN, Ur Squamous Epith Cells 0 SEEN, Urine Bacteria 0 SEEN, Urine Mucus RARE 05/01/22 01:22: POC Glucose 122 H 05/01/22 05:58: POC Glucose 128 H 05/01/22 07:20: WBC 17.3 H, RBC 4.49, Hgb 13.2, Hct 42.7, MCV 95.1, MCH 29.4, MCHC 30.9 L, RDW Std Deviation 47.8 H, RDW Coeff of Rita 13.7, Plt Count 193, MPV 10.7, Immature Gran % (Auto) 1.400 H, Neut % (Auto) 92.2 H, Lymph % (Auto) 4.3 L, Fillmore % (Auto) 2.0, Eos % (Auto) 0.0, Baso % (Auto) 0.1, Absolute Neuts (auto) 15.9 H, Absolute Lymphs (auto) 0.75 L, Nucleated RBC % 0 05/01/22 07:20: Sodium 141, Potassium 4.0, Chloride 107, Carbon Dioxide 27.0, Anion Gap 7, BUN 18, Creatinine 0.70, Estim Creat Clear Calc 33.71, Est GFR (MDRD) Af Amer 102, Est GFR (MDRD) Non-Af 85, BUN/Creatinine Ratio 25.6 H, Glucose 152 H, Calcium 8.4 L, Total Bilirubin 0.40, AST 18, ALT 90 H, Alkaline Phosphatase 62, Total Protein 6.3 L, Albumin 2.6 L, Globulin 3.7, Albumin/Globulin Ratio 0.7 L 05/01/22 07:20: Hemoglobin A1c 5.8 H 05/01/22 11:22: POC Glucose 172 H 05/01/22 15:40: D-Dimer Quant (PE/DVT) 0.55 H* 05/01/22 17:58: POC Glucose 176 H Micro: Microbiology 05/01/22 11:26 Sputum, Expectorated/Coughed Gram Stain - Final 05/01/22 00:20 Mucosa - Nasopharyngeal Respiratory Panel (PCR) - Final 04/30/22 19:50 Urine, Random Legionella Antigen - Final 04/30/22 19:50 Urine, Random Streptococcus pneumoniae Antigen (M - Final 04/30/22 19:15 Nasal Secretion SARS-CoV-2 Antigen (Rapid) - Final Radiography Diagnostic Testing: Radiology Impression Chest X-Ray 04/30/22 20:04 IMPRESSION: No radiographic evidence of acute cardiopulmonary disease. Electronically Signed: Michael Toure MD at 20:18 EST , Physical Exam Const no apparent distress Constitutional Narrative: Patient is alert but confused General Appearance: well developed Orientation / Consciousness: awake HEENT normocephalic, head/scalp atraumatic and moist oral mucous membranes Eyes PERRL, EOMs intact bilaterally and conjunctivae normal Neck no JVD and thyroid normal General: trachea midline Resp normal respiratory effort, no retractions and no use of accessory muscles Resp Narrative: Patient has expiratory wheezes bilaterally on auscultation Auscultation: wheezes expiratory wheezes and throughout; Negative for rales or rhonchi Cardio regular rate, regular rhythm, S1 normal heart sound, S2 normal heart sound, no murmurs, no rub and no gallops GI normal to inspection, nondistended, normoactive bowel sounds, soft to palpation, non-tender and non-distended Extremity no clubbing, cyanosis or edema Skin no rashes or lesions noted General Skin Exam: no breakdown Neuro CN's II-XII intact bilaterally Neuro Narrative: Patient is confused, she does not appear agitated Sensorium / Orientation: awake Psych Psych Narrative: Patient is confused with agitation. Assessment & Plan Assessment/Plan (1) Acute and chronic respiratory failure with hypoxia: PLAN: Plan 1. Acute on chronic hypoxic respiratory failure-secondary to COPD exacerbation and chronic aspiration-continue present medications for now. Patient's pulse ox will be monitored #2 dementia-complicates care, recovery, management, and prognosis #3 hyperlipidemia-patient remains on atorvastatin #4 hypothyroidism-patient remains on Synthroid Patient's CODE STATUS is a DNR CC arrest with no intubation. Total clinical time spent by myself addressing patient's medical issues, reviewing all the patient's medical data, and collaborating with patient's care team: 35-minutes Charges/Coding Visit Charges Inpatient E&M: 27466 Subs Hosp L2
[2022-05-01 23:05] LABS: Bedside Glucose 202 mg/dL (74-106)
[2022-05-02] VITALS (15 sets, daily range): BP systolic 110–142; BP diastolic 55–68; PULSE 60–84; RESP 18–20; TEMP 36.5–37.2; O2SAT 90–97
[2022-05-02] MEDS: Levothyroxine 75 MCG Tablet PO (05:39)
[2022-05-02] MEDS: Insulin Lispro 100 UNIT/ML INSULN.PEN SC ×3 (07:07→17:56)
[2022-05-02 07:35] LABS: Bedside Glucose 153 mg/dL (74-106)
[2022-05-02] MEDS: Enoxaparin 40 MG/0.4 ML Syringe SC (09:43)
[2022-05-02] MEDS: Nystatin Powder 15gm Bottle 1 APPLIC TOPICAL ×2 (09:43→22:04)
[2022-05-02] MEDS: Famotidine 20 MG Tablet PO ×2 (09:45→22:03)
[2022-05-02] MEDS: 0.9% Saline Lock 10 ML Syringe IV ×2 (09:54→22:04)
[2022-05-02] MEDS: Ipratropium/Albuterol Sulfate 3 ML AMPUL.NEB INHALATION ×3 (11:09→19:55)
[2022-05-02 11:45] LABS: Bedside Glucose 164 mg/dL (74-106)
--- NOTE | 2022-05-02 11:50 | PN.HOSP_ITS ---
Subjective Subjective She was seen and examined today, she does not appear to be in any respiratory distress at rest, she is alert but confused, patient's currently on 6 L of O2 Objective Data Objective Data Vital Signs: Vital Signs Temp Pulse Resp BP Pulse Ox O2 Del Method O2 Flow Rate 98.2 F 69 20 H 142/68 H 94 High Flow 6 05/02/22 10:35 05/02/22 11:10 05/02/22 11:10 05/02/22 10:35 05/02/22 11:35 05/02/22 11:10 05/02/22 11:35 FiO2 97 04/30/22 23:40 Oxygen Flow Rate (L/min) 6 Oxygen Delivery Method High Flow Weight: 55.5 kg Body Mass Index (BMI) 31.9 Intake & Output: Intake and Output for Last 24 Hours 04/30/22 05/01/22 05/02/22 23:59 23:59 23:59 Intake Total 112 / 112 1300.00 / 1300.00 100 / 100 Output Total 550 / 550 400 / 400 Balance 112 / 112 750.00 / 750.00 -300 / -300 Lab / Micro Data Result Diagrams: 05/01/22 07:20 05/01/22 07:20 Labs: Laboratory Results - last 24 hr 05/01/22 15:40: D-Dimer Quant (PE/DVT) 0.55 H* 05/01/22 17:58: POC Glucose 176 H 05/01/22 22:30: POC Glucose 202 H 05/02/22 07:06: POC Glucose 153 H 05/02/22 11:27: POC Glucose 164 H Micro: Microbiology 05/01/22 11:26 Sputum, Expectorated/Coughed Gram Stain - Final 05/01/22 11:26 Sputum, Expectorated/Coughed Respiratory Culture - Preliminary 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 05/01/22 00:20 Mucosa - Nasopharyngeal Respiratory Panel (PCR) - Final 04/30/22 19:50 Urine, Random Legionella Antigen - Final 04/30/22 19:50 Urine, Random Streptococcus pneumoniae Antigen (M - Final 04/30/22 19:15 Nasal Secretion SARS-CoV-2 Antigen (Rapid) - Final Physical Exam Narrative Const no apparent distress Constitutional Narrative: Patient is alert but confused, there is no agitation noted General Appearance: well developed Orientation / Consciousness: awake HEENT normocephalic, head/scalp atraumatic and moist oral mucous membranes Eyes PERRL, EOMs intact bilaterally and conjunctivae normal Neck no JVD and thyroid normal General: trachea midline Resp normal respiratory effort, no retractions and no use of accessory muscles Resp Narrative: Patient has expiratory wheezes bilaterally on auscultation Auscultation: wheezes expiratory wheezes and throughout; Negative for rales or rhonchi Cardio regular rate, regular rhythm, S1 normal heart sound, S2 normal heart sound, no murmurs, no rub and no gallops GI normal to inspection, nondistended, normoactive bowel sounds, soft to palpation, non-tender and non-distended Extremity no clubbing, cyanosis or edema Skin no rashes or lesions noted General Skin Exam: no breakdown Neuro CN's II-XII intact bilaterally Neuro Narrative: Patient is confused, she does not appear agitated Sensorium / Orientation: awake Psych Psych Narrative: Patient is confused without agitation. Assessment & Plan Assessment/Plan (1) Acute and chronic respiratory failure with hypoxia: PLAN: Plan 1. Acute on chronic hypoxic respiratory failure-secondary to COPD exacerbation and chronic aspiration-continue present medications for now. Patient's pulse ox will be monitored, I have decided to reorder a chest x-ray and the patient to make sure she has not developed changes on her chest x-ray. #2 dementia-complicates care, recovery, management, and prognosis #3 hyperlipidemia-patient remains on atorvastatin #4 hypothyroidism-patient remains on Synthroid Patient's CODE STATUS is a DNR CC arrest with no intubation. Total clinical time spent by myself addressing patient's medical issues, reviewing all the patient's medical data, and collaborating with patient's care team: 36-minutes Charges/Coding Visit Charges Inpatient E&M: 51465 Subs Hosp L2
--- NOTE | 2022-05-02 13:18 | RAD_ITS ---
INDICATION: respiratory failure EXAMINATION/TECHNIQUE: X-RAY - XR Chest 1 View COMPARISON: April 30, 2022 FINDINGS: LINES/DEVICES: None. LUNGS: There is no new focal consolidation. There are low lung volumes. There is stable right perihilar fullness. MEDIASTINUM AND CARDIOVASCULAR STRUCTURES: Cardiac silhouette not enlarged. BONES AND SOFT TISSUES: There is stable superior migration of the humeral heads. RAD/Chest 1 View (Portable) IMPRESSION: No radiographic evidence of acute cardiopulmonary disease. Electronically Signed: Reba Kirby MD at 13:33 EST ,
[2022-05-02 19:21] LABS: Bedside Glucose 183 mg/dL (74-106)
[2022-05-02] MEDS: Allopurinol 100 MG Tablet 200 MG PO (22:03)
[2022-05-02] MEDS: Atorvastatin Calcium 20 MG Tablet PO (22:03)
[2022-05-02] MEDS: Donepezil HCl 10 MG Tablet PO (22:03)
[2022-05-02] MEDS: traZODone 50 MG Tablet PO (22:03)
[2022-05-03] MEDS: Insulin Lispro 100 UNIT/ML INSULN.PEN SC ×2 (00:25→11:40)
[2022-05-03 00:46] LABS: Bedside Glucose 167 mg/dL (74-106)
[2022-05-03 03:05] VITALS: BP 134/66; PULSE 53; RESP 18; TEMP 36.8; O2SAT 95
[2022-05-03] MEDS: Levothyroxine 75 MCG Tablet PO (06:30)
[2022-05-03] MEDS: Ipratropium/Albuterol Sulfate 3 ML AMPUL.NEB INHALATION ×2 (06:55→10:51)
[2022-05-03 07:15] LABS: Bedside Glucose 147 mg/dL (74-106)
[2022-05-03 07:35] VITALS: PULSE 67; RESP 21
[2022-05-03 07:46] VITALS: O2SAT 95
[2022-05-03 09:00] VITALS: BP 122/64; PULSE 65; RESP 65; TEMP 36.6; O2SAT 93
[2022-05-03] MEDS: Enoxaparin 40 MG/0.4 ML Syringe SC (09:29)
[2022-05-03] MEDS: Nystatin Powder 15gm Bottle 1 APPLIC TOPICAL (09:30)
[2022-05-03] MEDS: Famotidine 20 MG Tablet PO (09:30)
--- NOTE | 2022-05-03 11:06 | PCM.TXEXTCAR ---
Diet Diet Order/Speech Therapy: 05/01/22 15:14 Diet: Regular - General Food consistency:: Pureed Liquid Consistency:: Regular/Thin Is pt able to select menu?: No Diet Comments: TOTAL FEED, ensure pt maintains adequate oxygenation during oral intake Routine Orders/Code Status O2 Liters per Minute: 3-4 O2 Frequency: Continuous Keep PO Greater than or Equal to (%): 90 Code Status: DNRCC-A (no intubation) Therapies Weight Bearing: Full weight bearing Speech Therapy: Eval and Treat Problem/Diagnosis (1) Acute and chronic respiratory failure with hypoxia: Status: Chronic Code(s): J96.21 - Acute and chronic respiratory failure with hypoxia Plan 1. Acute on chronic hypoxic respiratory failure-secondary to COPD exacerbation and chronic aspiration-continue present medications for now. Patient's pulse ox will be monitored, I have decided to reorder a chest x-ray and the patient to make sure she has not developed changes on her chest x-ray. #2 dementia-complicates care, recovery, management, and prognosis #3 hyperlipidemia-patient remains on atorvastatin #4 hypothyroidism-patient remains on Synthroid #5 suspected oropharyngeal dysphagia-patient is on a pur?ed diet with thin liquids, she will need follow-up with speech therapy Patient's CODE STATUS is a DNR CC arrest with no intubation. Total clinical time spent by myself addressing patient's medical issues, reviewing all the patient's medical data, and collaborating with patient's care team: 36-minutes Allergies/Procedures Done in Hospital Allergies No Known Allergies Allergy (Verified 03/05/19 16:45) Procedures: None Type of Care/Length of Stay Estimated LOS: More Than 30 Days Type of Care Needed: Intermediate Rehab Potential: Fair Prognosis: Fair Additional Orders/Day of Discharge H&P will serve as current which was dated: 04/30/22 Day of Discharge: 05/03/22 Dietary and Speech Recommendations Dietitian Recommendations/Changes: regular diet- texture/consistency per [employer]; ensure plus high protein 120mL 4x/day w/ medpass when diet advanced. PLEASE RE-WEIGH PT, ~40# WT DISCREPANCY NOTED Discharge Plan Admission Admit Date/Time: 04/30/22 21:04 Primary Reason for Your Visit: Exacerbation of COPD, possible aspiration Attending Provider: Isaac Gilbert Primary Care Provider: Janie Barr Consulting Providers: Lindsay Ogden Discharge Orders/Prescriptions Prescriptions: New prednisone 20 mg tablet 20 mg PO BID Qty: 1 0RF Rx Instructions: Take 1 twice a day for 3 days, then 1-1/2 daily x3 days, then 1 daily for 3 days then one half a day for 3 days then stop Continued atorvastatin 40 MG tablet 20 mg PO DAILY alendronate 35 MG tablet 35 mg PO FR acetaminophen 325 MG tablet 650 mg PO Q6H PRN PRN (Reason: Mild Pain (1-3)/Temp > 100.7 F) 0RF magnesium hydroxide 30 ML suspension 30 ml PO Q4H PRN PRN (Reason: Constipation) bisacodyl 10 MG suppository 10 mg AK DAILY PRN (Reason: Constipation) trazodone 50 mg Tablet 50 mg PO QHS donepezil [Aricept] 10 mg Tablet 10 mg PO QHS levothyroxine 75 mcg Tablet 75 mcg PO DAILY albuterol sulfate 90 mcg/actuation Hfa Aerosol Inhaler 2 puff INHALATION Q4H PRN PRN (Reason: SOB/wheezing) budesonide-formoterol [Symbicort] 160-4.5 mcg/actuation Hfa Aerosol Inhaler 1 puff INHALATION BID Spiriva Respimat 2.5 mcg/actuation Mist 2 puff INHALATION DAILY allopurinol 200 mg Tablet 200 mg PO QHS nystatin 1 APPLIC powder 1 applic TOPICAL BID Protocol: *Topical Application Instructions APPLICATION INSTRUCTIONS: apply to abdominal folds amoxicillin-pot clavulanate 875-125 mg tablet 1 tab PO Q12H Qty: 14 0RF Rx Instructions: Continue for 5 more days Discontinued loratadine 10 mg Tablet 10 mg PO DAILY prednisone 20 mg tablet 40 mg PO DAILY Qty: 14 0RF Referrals / Follow Up: Janie Barr MD [Primary Care Provider] - Disposition Disposition (needs filled in before D/C Order can be placed): Long-Term Facility
[2022-05-03 11:12] VITALS: PULSE 71; RESP 19
--- NOTE | 2022-05-03 11:13 | PCM.DC.SUM ---
Providers Date of Admission: 04/30/22 Date of Discharge: 05/03/22 Primary Care Physician: Dr. Janie Barr MD Reason For Visit: ACUTE CHRONIC HYPOXIA RF, ASP ANS, COPD EXAC Diagnosis Discharge Diagnosis (1) Acute and chronic respiratory failure with hypoxia: Status: Chronic Code(s): J96.21 - Acute and chronic respiratory failure with hypoxia Plan 1. Acute on chronic hypoxic respiratory failure-secondary to COPD exacerbation and chronic aspiration-continue present medications for now. Patient's pulse ox will be monitored, I have decided to reorder a chest x-ray and the patient to make sure she has not developed changes on her chest x-ray. #2 dementia-complicates care, recovery, management, and prognosis #3 hyperlipidemia-patient remains on atorvastatin #4 hypothyroidism-patient remains on Synthroid #5 suspected oropharyngeal dysphagia-patient is on a pur?ed diet with thin liquids, she will need follow-up with speech therapy Patient's CODE STATUS is a DNR CC arrest with no intubation. Total clinical time spent by myself addressing patient's medical issues, reviewing all the patient's medical data, and collaborating with patient's care team: 36-minutes Medications at Discharge Home Medications alendronate 35 mg tablet 35 mg PO FR bones 01/04/19 atorvastatin 40 mg tablet 20 mg PO DAILY cholesterol 01/04/19 acetaminophen 325 mg tablet 650 mg PO Q6H PRN PRN Mild Pain (1-3)/Temp > 100.7 F 01/08/19 bisacodyl 10 mg rectal suppository 10 mg SC DAILY PRN Constipation 03/05/19 magnesium hydroxide 400 mg/5 mL oral suspension 30 ml PO Q4H PRN PRN Constipation 03/05/19 albuterol sulfate 90 mcg/actuation aerosol inhaler 2 puff inhalation Q4H PRN PRN SOB/wheezing 04/24/22 allopurinol 200 mg tablet 200 mg PO QHS gout 04/24/22 budesonide-formoterol HFA 160 mcg-4.5 mcg/actuation aerosol inhaler (Symbicort) 1 puff inhalation BID acute bronchitis 04/24/22 donepezil 10 mg tablet (Aricept) 10 mg PO QHS dementia 04/24/22 levothyroxine 75 mcg tablet 75 mcg PO DAILY thyroid 04/24/22 nystatin 100,000 unit/gram topical powder 1 applic TOPICAL BID groin excoriation 04/24/22 tiotropium bromide 2.5 mcg/actuation mist for inhalation (Spiriva Respimat) 2 puff inhalation DAILY congestion 04/24/22 trazodone 50 mg tablet 50 mg PO QHS insomnia 04/24/22 amoxicillin 875 mg-potassium clavulanate 125 mg tablet 1 tab PO Q12H #14 tabs 05/03/22 prednisone 20 mg tablet 20 mg PO BID #1 TAB 05/03/22 Hospital Course Operations None Procedures None Summary of Care Provided Minutes Spent on Discharge: 31 Hospital Course: This 82-year-old white female was sent in from a local extended care facility which she resides for hypoxia and altered mental status, patient had a history of chronic dementia and was unable to provide information, patient was chronically on 3 L of oxygen at the senior living but her oxygen had to be increased to 10 L to maintain her pulse ox on transport to the hospital. Work-up in the emergency room included a chest x-ray which showed no evidence of acute infiltrates, her oxygen was able to be decreased to 6 L, auscultation of the lungs anteriorly revealed diffuse expiratory wheezing, patient's COVID antigen test was negative, white blood cell count was elevated at 19.8 and her urinalysis was unremarkable. Patient was admitted to [place] [address] for possible aspiration and exacerbation of COPD, she was placed on IV corticosteroids and IV antibiotics and seen by speech therapy who performed a videofluoroscopic swallowing eval and recommended that she be on a pur?ed thin liquid diet. Patient's respiratory status improved slowly during her hospitalization. On 05/03/2022, patient was seen and examined: On examination she appeared her stated age, she is confused, she does not appear to be in any distress. Vital signs as documented. Skin warm and dry and without overt rashes. Neck without JVD, thyroid appears normal, trachea is midline, neck is supple. Lungs clear, normal air movement was noted. Heart exam notable for regular rhythm, normal sounds and absence of murmurs, rubs or gallops. Abdomen unremarkable and without evidence of organomegaly, masses, or abdominal aortic enlargement, bowel sounds are present in all 4 quadrants, no abdominal tenderness was noted. Extremities nonedematous, no cyanosis was noted, no clubbing was noted. Neuro: Cranial nerves II through XII are grossly intact, no focal motor deficits were noted, sensation to light touch and pinprick is intact, motor exam 5/5 throughout. Psych: Patient is alert, she is confused On 05/03/2022, patient was seen and examined felt in stable condition for return to her extended care facility for long-term care. Weight / BMI Weight Weight: 54.2 kg Body Mass Index (BMI) 31.9 ABG / Lab / Microbiology Data Result Diagrams: 05/01/22 07:20 05/01/22 07:20 Laboratory: Laboratory Results - last 24 hr 05/02/22 11:27: POC Glucose 164 H 05/02/22 17:35: POC Glucose 183 H 05/03/22 00:23: POC Glucose 167 H 05/03/22 06:38: POC Glucose 147 H Microbiology: Microbiology 05/01/22 11:26 Sputum, Expectorated/Coughed Gram Stain - Final 05/01/22 11:26 Sputum, Expectorated/Coughed Respiratory Culture - Final Enterobacter cloacae complex 04/30/22 19:00 Blood Culture (Wb) - Right Wrist Blood Culture - Preliminary No growth in 48 hours. 04/30/22 18:56 Blood Culture (Wb) - Left Hand Blood Culture - Preliminary No growth in 48 hours. 04/30/22 19:50 Urine, Catheterized Urine Culture - Final Culture exhibits no growth. 05/01/22 00:20 Mucosa - Nasopharyngeal Respiratory Panel (PCR) - Final 04/30/22 19:50 Urine, Random Legionella Antigen - Final 04/30/22 19:50 Urine, Random Streptococcus pneumoniae Antigen (M - Final 04/30/22 19:15 Nasal Secretion SARS-CoV-2 Antigen (Rapid) - Final Radiography Diagnostic Testing: Radiology Impression Chest X-Ray 05/02/22 13:18 IMPRESSION: No radiographic evidence of acute cardiopulmonary disease. Electronically Signed: Reba Kirby MD at 13:33 EST , Meaningful Use Info Meaningful Use Diagnoses (Choose all that apply): None applicable Discharge Plan Admission Admit Date/Time: 04/30/22 21:04 Primary Reason for Your Visit: Exacerbation of COPD, possible aspiration Attending Provider: Isaac Gilbert Primary Care Provider: Janie Barr Consulting Providers: Lindsay Ogden Discharge Orders/Prescriptions Prescriptions: New prednisone 20 mg tablet 20 mg PO BID Qty: 1 0RF Rx Instructions: Take 1 twice a day for 3 days, then 1-1/2 daily x3 days, then 1 daily for 3 days then one half a day for 3 days then stop Continued atorvastatin 40 MG tablet 20 mg PO DAILY alendronate 35 MG tablet 35 mg PO FR acetaminophen 325 MG tablet 650 mg PO Q6H PRN PRN (Reason: Mild Pain (1-3)/Temp > 100.7 F) 0RF magnesium hydroxide 30 ML suspension 30 ml PO Q4H PRN PRN (Reason: Constipation) bisacodyl 10 MG suppository 10 mg SC DAILY PRN (Reason: Constipation) trazodone 50 mg Tablet 50 mg PO QHS donepezil [Aricept] 10 mg Tablet 10 mg PO QHS levothyroxine 75 mcg Tablet 75 mcg PO DAILY albuterol sulfate 90 mcg/actuation Hfa Aerosol Inhaler 2 puff INHALATION Q4H PRN PRN (Reason: SOB/wheezing) budesonide-formoterol [Symbicort] 160-4.5 mcg/actuation Hfa Aerosol Inhaler 1 puff INHALATION BID Spiriva Respimat 2.5 mcg/actuation Mist 2 puff INHALATION DAILY allopurinol 200 mg Tablet 200 mg PO QHS nystatin 1 APPLIC powder 1 applic TOPICAL BID Protocol: *Topical Application Instructions APPLICATION INSTRUCTIONS: apply to abdominal folds amoxicillin-pot clavulanate 875-125 mg tablet 1 tab PO Q12H Qty: 14 0RF Rx Instructions: Continue for 5 more days Discontinued loratadine 10 mg Tablet 10 mg PO DAILY prednisone 20 mg tablet 40 mg PO DAILY Qty: 14 0RF Referrals / Follow Up: Janie Barr MD [Primary Care Provider] - Disposition Disposition (needs filled in before D/C Order can be placed): Assisted Facility Charges/Coding Visit Charges Inpatient E&M: 32440 Disch Hosp >30min
[2022-05-03 13:46] VITALS: BP 117/42; PULSE 63; RESP 18; TEMP 36.4; O2SAT 93
[2022-05-03 16:40] LABS: Bedside Glucose 242 mg/dL (74-106)
== END 2022-05-03 14:28 | disposition skilled nursing facility (03) | DRG 191 ==
LOC: ED 21:02 → MS3 21:21
PROVIDERS: Admitting Provider Family Medicine; Emergency Provider Emergency Medicine; PCP Internal Medicine; Visit Provider Internal Medicine
DX: J44.1 Chronic obstructive pulmonary disease with (acute) exacerbation (principal); J96.12 Chronic respiratory failure with hypercapnia; F03.90 Unspecified dementia, unspecified severity, without behavioral disturbance, psychotic disturbance, mood disturbance, and anxiety; J44.0 Chronic obstructive pulmonary disease with (acute) lower respiratory infection; E03.9 Hypothyroidism, unspecified; M10.9 Gout, unspecified; N18.2 Chronic kidney disease, stage 2 (mild); E78.5 Hyperlipidemia, unspecified; Z66 Do not resuscitate; Z87.891 Personal history of nicotine dependence; Z79.52 Long term (current) use of systemic steroids; Z79.83 Long term (current) use of bisphosphonates; R13.12 Dysphagia, oropharyngeal phase
CPT/HCPCS: 31720; 36415; 71045; 74230; 80053; 81001; 82962; 83036; 83605; 84145; 85025; 85379; 85610; 85730; 87040; 87070; 87077; 87086; 87186; 87205; 87426; 87449; 87633; 87811; 92507; 92610; 92611; 93005; 94640; 94668; 97162; 97166; 97530; 97535; 97802; 99252; 99285; J7030; J7050; A4216; G0463; J0295